=== PATIENT | female | born 1940 | race Caucasian/White ===

== ENCOUNTER 2020-02-11 10:01 | Outpatient (CLI) | payer MEDICARE, BC, OTHER, SELFPAY ==
--- NOTE | ~2020-02-11 | MM_ITS ---
EXAMINATION: MM screening kamryn BI w guillermo HISTORY: Screening mammogram TECHNIQUE: Craniocaudal and mediolateral oblique 3-D tomosynthesis images were obtained and synthetic 2-D images were generated. CAD analysis was submitted and interpreted. COMPARISON: 02/05/2019, 01/28/2018, 01/16/2017 bilateral digital screening mammogram examinations BREAST PARENCHYMAL COMPOSITION: The breasts are almost entirely fatty. FINDINGS: There is no evidence of suspicious mass, calcification, or architectural distortion to sugg est malignancy in either breast. There has been no suspicious interval change. IMPRESSION: 1. No mammographic evidence of malignancy. 2. Recommend routine screening mammography in one year. BI-RADS Category 1: Negative Reviewed, dictated and finalized at location A.
== END 2020-02-11 10:02 | disposition home or self-care (01) ==
LOC: ANHIMG 10:08
PROVIDERS: PCP Family Medicine; Visit Provider Family Medicine
DX: Z12.31 Encounter for screening mammogram for malignant neoplasm of breast (principal)
CPT/HCPCS: 77063; 77067

== ENCOUNTER 2020-04-22 18:24 | Emergency (ER) | payer MEDICARE, BC, OTHER, SELFPAY ==
--- NOTE | ~2020-04-22 | XR_ITS ---
EXAMINATION: XR knee RT 3V DATE: 04/22/2020 19:52 INDICATION: Right knee pain. Fall. TECHNIQUE: 3 views of right knee were obtained. COMPARISON: None. FINDINGS: There is a total right knee arthroplasty with patellar resurfacing in near-anatomic alignme nt. No fracture. No periprosthetic lucency to suggest loosening or infection. There is a small knee j oint effusion. IMPRESSION: 1. Total right knee arthroplasty in near-anatomic alignment. 2. Small right knee joint effusion. Reviewed, dictated and finalized at location A. ESSIONAL SYSTEM ADMINISTRATOR
--- NOTE | ~2020-04-22 | CT_ITS ---
EXAMINATION: CT brain wo con DATE: 04/22/2020 18:53 INDICATION: Head injury. TECHNIQUE: Computed tomography (CT) of the head was performed without intravenous contrast. The mA wa s adjusted according to patient size. Iterative reconstruction technique was employed. The dose-lengt h product was 605.33 mGy-cm. COMPARISON: None FINDINGS: There is no intracranial hemorrhage, acute infarction, or abnormal intracranial mass lesion . The ventricles are normal in size. There are likely changes of ocular lens replacement surgeries. T here is mild mucosal thickening in the paranasal sinuses. There is a right otomastoid effusion. There is a left mastoid effusion. IMPRESSION: 1. Normal brain. Reviewed, dictated and finalized at location A. LE CEILING INSTALLER IMPRESSION: 1. Normal brain.
[2020-04-22 18:28] VITALS: BP 180/98; PULSE 87; RESP 18; TEMP 36.9; O2SAT 97
--- NOTE | 2020-04-22 18:34 | ED.GENADULT ---
HPI - General Adult General Chief complaint: Wound/Laceration Stated complaint: fall Time Seen by Provider: 04/22/20 18:33 Source: patient and family Mode of arrival: ambulatory Limitations: no limitations History of Present Illness HPI narrative: Patient is an 79-year-old female who presents with lip laceration patient was walking when she tripped fell forward striking the face. Patient denies loss of consciousness syncope weakness neck pain patient denies any anticoagulant use patient did chip her right upper incisor patient notes mild discomfort of the nose and the left where she has a laceration of the right upper lip Related Data Home Medications Medication Instructions Recorded Confirmed cholecalciferol (vitamin D3) 25 25 mcg PO DAILY 07/14/19 10/13/19 mcg (1,000 unit) capsule celecoxib 200 mg capsule 200 mg PO DAILY cap 10/13/19 10/13/19 pantoprazole 40 mg granules 40 mg PO DAILY 04/05/20 delayed-release for susp in packet vitamin B complex 1 tablet PO DAILY 04/05/20 Allergies Allergy/AdvReac Type Severity Reaction Status Date / Time cefpodoxime Allergy Unknown Unknown Verified 04/05/20 10:27 Cephalosporins Allergy Unknown Hives Verified 04/05/20 10:27 erythromycin base Allergy Unknown Unknown Verified 04/05/20 10:27 Penicillins Allergy Unknown Hives Verified 04/05/20 10:27 CEFPODOXIME PROXETIL Allergy Severe C DIFF Uncoded 04/05/20 10:27 Review of Systems Review of Systems: All systems reviewed & are unremarkable except as noted in HPI and below PMFSH Past Medical History Medical History Chronic interstitial lung disease Dyslipidemia History of Clostridium difficile infection Hx of gastric ulcer Hx of small bowel obstruction ILD (interstitial lung disease) Recurrent herpes labialis Unspecified osteoarthritis, unspecified site Vitamin B12 deficiency Surgical History Surgical History History of cholecystectomy 1969 History of right knee joint replacement 07/2019 History of sinus surgery 1995 Family History Family History Father Family history of Parkinson's disease, Onset Age: 85 Sibling Family history of type 1 diabetes mellitus, Onset Age: 36 Other Diabetes mellitus Family history of arthritis Social History Social History Smoking status: Never smoker Second hand tobacco smoke exposure: No Alcohol intake: current Substance use: never Substance use type: does not use Exam Narrative: Exam Narrative: GENERAL: Well-appearing, well-nourished, and in no acute distress. HEAD: Normocephalic, patient with laceration of the right upper lateral lip. Abrasion over the nasal bridge EYES: PERRLA and EOMI. ENT: Nares clear, no rhinorrhea or epistaxis. Mucous membranes moist. NECK: Supple. No adenopathy or masses. CHEST: Clear to auscultation. No respiratory distress. No wheezes rales or rhonchi HEART: Regular rate and rhythm. No murmur heard. EXTREMITIES: Normal range of motion. No edema. No C-spine tenderness to palpation. Tenderness of the anterior right knee with slight bruising and abrasion SKIN: Warm, dry, no rash. NEURO: No focal deficits. Alert and oriented x3. Cranial nerves II through XII grossly intact PSYCH: Normal mood and affect. Course Course Emergency Course: Patient in the room in no distress no high risk changes i in the imaging felt appropriate for outpatient reevaluation given reasons to return patient will follow with her orthopedic surgeon as well as her primary care doctor Vital Signs Vital signs: Vital Signs Temperature 98.4 F 04/22/20 18:28 Pulse Rate 87 04/22/20 18:28 Respiratory Rate 18 04/22/20 18:28 Blood Pressure 180/98 H 04/22/20 18:28 Pulse Oximetry 97 04/22/20 18:28 T
[2020-04-22] MEDS: HYDROcodone/acetaminophen (*CRX) 5-325 MG TABLET 1 TAB PO (18:46)
[2020-04-22 20:44] VITALS: BP 139/76; PULSE 78; RESP 18; O2SAT 99
== END 2020-04-22 20:46 | disposition home or self-care (01) ==
PROVIDERS: Emergency Provider Emergency Medicine; PCP Family Medicine
DX: S01.511A Laceration without foreign body of lip, initial encounter (principal); S80.01XA Contusion of right knee, initial encounter; S09.90XA Unspecified injury of head, initial encounter; E78.5 Hyperlipidemia, unspecified; J84.9 Interstitial pulmonary disease, unspecified; M19.90 Unspecified osteoarthritis, unspecified site; E53.8 Deficiency of other specified B group vitamins; Z96.651 Presence of right artificial knee joint; W01.0XXA Fall on same level from slipping, tripping and stumbling without subsequent striking against object, initial encounter
CPT/HCPCS: 12011; 70450; 73562; 99284; A9270

== ENCOUNTER 2020-07-20 18:24 | Inpatient (IN) | payer MEDICARE, BC, OTHER, SELFPAY ==
[2020-07-20] VITALS (26 sets, daily range): BP systolic 116–169; BP diastolic 65–157; PULSE 77–105; RESP 13–28; TEMP 36.8; O2SAT 81–99
--- NOTE | ~2020-07-20 | CT_ITS ---
EXAMINATION: CT abdomen pelvis w con DATE: 07/20/2020 20:27 INDICATION: Low abdominal pain. TECHNIQUE: Computed tomography (CT) of the abdomen and pelvis was performed with 100 mL Omnipaque 350 intravenous contrast. Automated exposure control and iterative reconstruction technique were employe d. The dose-length product was 823.64 mGy-cm. COMPARISON: CT abdomen and pelvis 06/25/2018 FINDINGS: The visualized portions of the lung bases demonstrate a heterogeneous distribution of perip heral reticular opacities with architectural distortion. There is peripheral honeycombing in the lowe r lobes and lingula. There is mild bronchiectasis in the lower lobes. No pleural effusion. The heart size is normal. There are coronary artery calcifications. No pericardial effusion. There is mild intr ahepatic biliary duct dilatation, likely secondary to cholecystectomy. The spleen, pancreas, and adre nal glands are normal. Right kidney is normal. There is cortical thinning of left kidney. 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 There is diverticulosis of the colon without evidence of diverticulitis. There are multiple dilated loops of small bowel with transition point in the lower abdomen where there is mild wall thickening, consistent with inflammation. There are no pat hologically enlarged lymph nodes. There is no free intraperitoneal fluid. There is severe lumbar and thoracic spondylosis. There are chronic bilateral L5 pars defects. IMPRESSION: 1. Small bowel obstruction with transition point in the lower abdomen. 2. Chronic interstitial lung disease in a pattern of usual interstitial pneumonia (UIP). Reviewed, dictated and finalized at location A. T CLERK IMPRESSION: 1. Small bowel obstruction with transition point in the lower abdomen. 2. Chronic interstitial lung disease in a pattern of usual interstitial pneumon ia (UIP).
--- NOTE | ~2020-07-20 | XR_ITS ---
EXAMINATION: XR abdomen obstructive series DATE: 07/21/2020 05:47 INDICATION: Small bowel obstruction. TECHNIQUE: Frontal supine and upright views of the abdomen were obtained. COMPARISON: 07/20/2020 FINDINGS: Nasogastric tube tip in the body of the stomach. Small to moderate amount of gas scattered throughout colon and multiple loops of nondilated small bowel. No free intraperitoneal gas. Streaky atelectas is/scarring at the left lower lung zone. 6 mm crescentic calcification in the right upper quadrant co rresponding to a small right renal artery aneurysm. IMPRESSION: 1. No free intraperitoneal gas or dilated gas-filled loops of bowel to suggest obstruction. Reviewed, dictated and finalized at location A. NESS PROCESS MANAGER
--- NOTE | ~2020-07-20 | XR_ITS ---
EXAMINATION: XR abdomen NG/feed tube insert DATE: 07/20/2020 21:24 INDICATION: Nasogastric tube placement. TECHNIQUE: An upright view of the abdomen was obtained. COMPARISON: CT abdomen and pelvis 07/20/2020 FINDINGS: There are multiple dilated loops of small bowel. The colon is decompressed. The nasogastric tube tip is in the stomach. IMPRESSION: 1. Nasogastric tube tip in the stomach. 2. Small bowel obstruction. Reviewed, dictated and finalized at location A. NG FELLER BLINDSTITCH
--- NOTE | 2020-07-20 18:46 | ED.ABDPAIN ---
HPI - Abdominal Pain General Chief Complaint: Abdominal Pain Stated Complaint: abd pain x 24 hours Time Seen by Provider: 07/20/20 18:33 Source: patient Mode of arrival: ambulatory Limitations: no limitations History of Present Illness HPI narrative: This is an 79 year old female with history of bowel obstruction who presents for evaluation of mid abdominal pain. Her pain started last night and she reports it has been constant. She describes her pain as pressure, and it feels similar to when she had a bowel obstruction 2 years ago. She started having nausea and bilious vomiting today. Her last bowel movement was yesterday prior to the start of her pain. She denies fever, chills, cough, diarrhea, chest pain or sob. PAin is nonradiating and she rates her pain as 6/10. Related Data Home Medications Medication Instructions Recorded Confirmed cholecalciferol (vitamin D3) 25 25 mcg PO DAILY 07/14/19 07/18/20 mcg (1,000 unit) capsule pantoprazole 40 mg granules 40 mg PO DAILY 04/05/20 07/18/20 delayed-release for susp in packet vitamin B complex 1 tablet PO DAILY 04/05/20 07/18/20 celecoxib 200 mg capsule 200 mg PO BID cap 04/27/20 07/18/20 Allergies Allergy/AdvReac Type Severity Reaction Status Date / Time cefpodoxime Allergy Unknown Unknown Verified 07/18/20 14:48 Cephalosporins Allergy Unknown Hives Verified 07/18/20 14:48 erythromycin base Allergy Unknown Unknown Verified 07/18/20 14:48 Penicillins Allergy Unknown Hives Verified 07/18/20 14:48 CEFPODOXIME PROXETIL Allergy Severe C DIFF Uncoded 07/18/20 14:48 Review of Systems Review of Systems: All systems reviewed & are unremarkable except as noted in HPI and below PMFSH Past Medical History Medical History Chronic interstitial lung disease Dyslipidemia History of Clostridium difficile infection Hx of gastric ulcer Hx of small bowel obstruction ILD (interstitial lung disease) Recurrent herpes labialis Unspecified osteoarthritis, unspecified site Vitamin B12 deficiency Surgical History Surgical History History of cholecystectomy 1969 History of right knee joint replacement 07/2019 History of sinus surgery 1995 Family History Family History Father Family history of Parkinson's disease, Onset Age: 85 Sibling Family history of type 1 diabetes mellitus, Onset Age: 36 Other Diabetes mellitus Family history of arthritis Social History Social History Smoking status: Never smoker Second hand tobacco smoke exposure: No Alcohol intake: current Substance use: never Substance use type: does not use Exam Const: General: no acute distress and alert Orientation/consciousness: patient oriented x3 Resp: Effort & Inspection: normal respiratory effort and no retractions Auscultation: clear to auscultation bilaterally Cardio: Rate: regular rate Rhythm: regular rhythm Heart sounds: no murmurs GI: GI Palp: Yes Soft to palpation, Yes Tenderness to palpation present (GI) (Bilateral lower quadrant), No Guarding due to palpation present (GI) and No Rigid due to palpation Auscultation: normal bowel sounds Skin: General skin exam: normal color Rashes: no rashes Neuro: General: patient oriented x3, moves all extremities and CN's II-XI intact bilaterally Psych: Mental Status: mental status grossly normal Affect: normal affect Course Consultations Consultation #1: I Discussed labs and patient found to have SBO on CT. He agrees with NGT, IV hydration and repeat xray in AM. he will admit to his service. Date: 07/20/20 Time: 21:07 Vital Signs Vital signs: Vital Signs Temperature 98.3 F 07/20/20 18:31 Pulse Rate 99 07/20/20 18:31 Respiratory Rate 18 07/20/20 18:31 Blood Pre
[2020-07-20] MEDS: ONDANSETRON INJ 4 MG/2 ML VIAL IV PUSH (18:54)
[2020-07-20] MEDS: MORPHINE SULFATE (*CRX) 4 MG/ML INJ IV PUSH (18:54)
[2020-07-20] MEDS: LACTATED RINGERS 1,000 ML 999 ML IV CONT ×2 (18:54→20:16)
[2020-07-20 19:16] LABS: Basophils Absolute Auto 0.1 K/mm3 (0.0-0.1); Basophils Percent Auto 0.5 % (0.2-1.2); Eosinophils Absolute Auto 0.7 K/mm3 (0-0.3); Eosinophils Percent Auto 4.3 % (0-4.4); Hematocrit 43.6 % (37.0-47.0); Hemoglobin 14.3 g/dL (12.0-15.0); Immature Granulocyte Absolute 0.11 K/mm3 (0.00-0.031); Immature Granulocyte Percent A 0.6 % (0-0.5); Lymphocytes Absolute Auto 1.32 K/mm3 (0.9-3.2); Lymphocytes Percent Auto 7.8 % (18.3-44.2); Mean Corpuscular HGB Conc 32.8 g/dl (32-36); Mean Corpuscular Hemoglobin 31.1 pg (26-34); Mean Corpuscular Volume 94.8 fl (80-100); Mean Platelet Volume 8.4 fl (7.4-10.4); Monocytes Absolute Auto 1.1 K/mm3 (0.1-0.6); Monocytes Percent Auto 6.7 % (2.6-8.5); Neutrophils Absolute Auto 13.6 K/mm3 (1.3-6.7); Neutrophils Percent Auto 80.1 % (45.5-73.1); Platelet Count Result 351 k/mm3 (150-375); Red Cell Distribution Width 12.5 % (11.5-14.5)
[2020-07-20 19:27] LABS: Lactic Acid Reflex 2.5 mmol/L (0.7-2.1)
[2020-07-20 19:28] LABS: Alanine Aminotransferase 12 U/L (4-35); Albumin Level 4.2 g/dL (3.5-5.1); Alkaline Phosphatase 72 U/L (38-126); Anion Gap 8 mmol/L (8-16); Aspartate Amino Transferase 22 U/L (14-36); Bilirubin,Total 0.8 mg/dL (0.2-1.3); Blood Urea Nitrogen 14 mg/dL (7-17); Calcium 9.3 mg/dL (8.4-10.2); Carbon Dioxide 25 mmol/L (22-30); Chloride 101 mmol/L (98-107); Estimated CRCL calculation 41 ml/min; Estimated Glomerular Filt Rate 60; Glucose 148 mg/dL (65-105); Lipase 83 U/L (23-300); Potassium 4.2 mmol/L (3.4-5.0); Sodium 134 mmol/L (137-145)
[2020-07-20 20:34] LABS: Add Urine Microscopic? YES; Appearance Urine Clear (Clear); Bilirubin Urine Negative (Negative); Blood Urine Negative (Negative); Color Urine Yellow (Yellow); Glucose Urine UA Negative (Negative); Ketones Urine Negative (Negative); Leukocyte Esterase Ur Trace LEU/UL (Negative); Mucus Urine Rare /lpf; Nitrate Urine Negative (Negative); Protein Urine Negative (Negative); RBC Urine 0-2 /hpf (0-2); Urobilinogen Urine Negative mg/dL (<2.0); WBC Urine 0-3 /hpf
[2020-07-20 22:13] LABS: Reflex Lactic Acid Yes or No Add Lactic
[2020-07-20 22:46] LABS: Lactic Acid 1.3 mmol/L (0.7-2.1)
--- NOTE | 2020-07-20 22:51 | PC.NURSE ---
Pt. placed on 2 L NC. due to O2 saturation dropping to 84%
--- NOTE | 2020-07-20 23:31 | PC.NURSE ---
Pt placed on 2 L NC O2 due to oxygen sat 88%.
[2020-07-21 00:03] VITALS: BP 140/72; PULSE 79; RESP 26; O2SAT 98
--- NOTE | 2020-07-21 00:06 | ADMGEN ---
This patient, Sylvia Sullivan, was admitted to Medical Room 343-01. Patient/family oriented to hospital policies and general routines including ID bracelet, bed and alarms, visiting hours, pain management, procedures, bathroom and other care routines, personal items, smoking policy, room service/diet, and visiting hours. Information on how to activate the Rapid Response Team has been discussed. Patient/Family are encouraged to report perceived risks to care and to ask questions if they do not understand what they are told or what they should do.
[2020-07-21 00:10] VITALS: BMI 29.8
[2020-07-21 00:11] VITALS: BP 146/65; PULSE 86; RESP 16; TEMP 36.1; O2SAT 96
[2020-07-21 05:05] VITALS: BP 142/63; PULSE 83; RESP 20; TEMP 36.4; O2SAT 92
[2020-07-21 05:41] LABS: Basophils Absolute Auto 0.1 K/mm3 (0.0-0.1); Basophils Percent Auto 0.6 % (0.2-1.2); Eosinophils Absolute Auto 0.4 K/mm3 (0-0.3); Eosinophils Percent Auto 4.2 % (0-4.4); Hematocrit 37.2 % (37.0-47.0); Hemoglobin 11.9 g/dL (12.0-15.0); Immature Granulocyte Absolute 0.05 K/mm3 (0.00-0.031); Immature Granulocyte Percent A 0.5 % (0-0.5); Lymphocytes Percent Auto 18.5 % (18.3-44.2); Mean Corpuscular Hemoglobin 30.4 pg (26-34); Mean Corpuscular Volume 95.1 fl (80-100); Mean Platelet Volume 8.4 fl (7.4-10.4); Monocytes Absolute Auto 1.1 K/mm3 (0.1-0.6); Monocytes Percent Auto 11.6 % (2.6-8.5); Neutrophils Absolute Auto 6.3 K/mm3 (1.3-6.7); Neutrophils Percent Auto 64.6 % (45.5-73.1); Platelet Count Result 312 k/mm3 (150-375); Red Blood Count 3.91 M/mm3 (4.2-5.4); Red Cell Distribution Width 12.6 % (11.5-14.5); White Blood Count 9.8 K/mm3 (4.5-10.0)
[2020-07-21 05:56] LABS: Alanine Aminotransferase 39 U/L (4-35); Albumin Level 3.2 g/dL (3.5-5.1); Alkaline Phosphatase 68 U/L (38-126); Anion Gap 3 mmol/L (8-16); Aspartate Amino Transferase 64 U/L (14-36); Bilirubin,Total 0.6 mg/dL (0.2-1.3); Blood Urea Nitrogen 12 mg/dL (7-17); Calcium 8.1 mg/dL (8.4-10.2); Carbon Dioxide 31 mmol/L (22-30); Chloride 100 mmol/L (98-107); Estimated CRCL calculation 43 ml/min; Estimated Glomerular Filt Rate 53; Glucose 113 mg/dL (65-105); Potassium 4.4 mmol/L (3.4-5.0); Sodium 134 mmol/L (137-145)
--- NOTE | 2020-07-21 09:04 | PM.IMHP ---
H&P: HPI History of Present Illness Date/Time: 07/21/20 09:04 Chief Complaint: abd pain Narrative: Sylvia Sullivan is a 79 year old female presenting to the ED c/o 2 d h/o worsening crampy abd pain, intractable N/V. Pt reports she has really been unable to eat or drink. Pt reports no bowel fxn since Friday. Pt reports similar episode 2 yrs ago resolved c conservative tx. Pt had previous open cholecystectomy and surgery for PUD. This am, pt reports she feels much improved and has began to pass flatus. Review of Systems Constitutional: Constitutional: Reports anorexia, Denies chills, Reports fatigue, Denies headache(s), Reports lethargy, Reports poor appetite, Reports weakness, Denies weight gain and Denies weight loss Eyes: Eyes: Reports no additional eye complaints ENT: Reports system reviewed and no additional complaints, except as documented Cardiovascular: Cardiovascular: Reports no additional cardiovascular complaints Respiratory: Respiratory: Reports no additional respiratory complaints Gastrointestinal: Gastrointestinal: Reports as per HPI Genitourinary: Genitourinary: Reports no additional female genitourinary complaints Musculoskeletal: Musculoskeletal: Reports no additional musculoskeletal complaints Integumentary/Breasts: Skin/Breast: Reports system reviewed and no additional complaints, except as docu Neurologic: Reports system reviewed and no additional complaints, except as documented Psychiatric: Psychiatric: Reports no additional psychiatric complaints Endocrine: Endocrine: Reports no additional endocrine complaints Hematologic/Lymphatic: Hematologic/Lymphatic: Reports no additional hematologic/lymphatic complaints Allergic/Immunologic: Allergic/Immunologic: Reports no additional allergic/immunologic complaints PMFSH Past Medical History Medical History Chronic interstitial lung disease Dyslipidemia History of Clostridium difficile infection Hx of gastric ulcer Hx of small bowel obstruction ILD (interstitial lung disease) Recurrent herpes labialis Unspecified osteoarthritis, unspecified site Vitamin B12 deficiency Surgical History Surgical History History of cholecystectomy 1970 History of right knee joint replacement 07/2019 History of sinus surgery 1995 Family History Family History Father Family history of Parkinson's disease, Onset Age: 85 Sibling Family history of type 1 diabetes mellitus, Onset Age: 36 Other Diabetes mellitus Family history of arthritis Social History Social History Smoking status: Never smoker Second hand tobacco smoke exposure: No Alcohol intake: current Drinks per week: 3 Substance use: never Substance use type: does not use Gender identity (if verbalized by the patient): Female Spiritual care concerns: No Meds Home Medications and Allergies Home Medications Medication Instructions Recorded Confirmed Type cholecalciferol (vitamin D3) 25 25 mcg PO DAILY 07/14/19 07/21/20 History mcg (1,000 unit) capsule pantoprazole 40 mg granules 40 mg PO DAILY 04/05/20 07/21/20 History delayed-release for susp in packet vitamin B complex 1 tablet PO DAILY 04/05/20 07/21/20 History acetaminophen [Tylenol Arthritis 650 mg PO Q8H PRN #7 tablet 04/22/20 07/21/20 Rx Pain] celecoxib 200 mg capsule 200 mg PO BID cap 04/27/20 07/21/20 History rosuvastatin 10 mg PO DAILY 07/21/20 07/21/20 History Allergies Allergy/AdvReac Type Severity Reaction Status Date / Time cefpodoxime Allergy Unknown C diff Verified 07/21/20 01:39 Cephalosporins Allergy Unknown Hives Verified 07/21/20 01:37 erythromycin base Allergy Unknown Unknown Verified 07/21/20 01:37 Penicillins Allergy Unknown Hives Verified 07/21/20
[2020-07-21 14:00] VITALS: BP 135/62; PULSE 80; RESP 16; TEMP 36.1; O2SAT 97
--- NOTE | 2020-07-23 08:36 | PM.DS ---
DS: Admitting Diagnosis Admitting Diagnosis Admitting Diagnosis: SBO DS: Discharge Diagnosis Discharge Diagnosis (1) Small bowel obstruction: Code(s): K56.609 - Unspecified intestinal obstruction, unspecified as to partial versus complete obstruction Status: Acute Assessment and Plan: resolved c conservative mgmt, cont to encourage soft diet at discharge, f/u 2 wks DS: Summary Hospital Course Reason for hospitalization: SBO Hospital Course: Pt is a 79 y/o F presenting to ED c/o crampy abd pain, N/V. Workup, including imaging, was significant for SBO. Pt admitted to surgical service for observation. Pt treated conservatively c NG decompression, bowel rest, IV hydration. Pt responded well to treatment beginning to pass flatus the following am. NG was clamped and subsequently removed. Pt was able to then have a normal bowel movement. Pt ankit soft diet at discharge. Status at Discharge Functional status at discharge: independent ambulation Overall status at discharge: patient is progressing back to baseline Time Spent with Patient Time attestation: Total time spent providing and/or coordinating discharge services: Time spent: Less than 30 minutes Exam Const: General: cooperative, comfortable and no acute distress Chest: Chest palpation & inspection: normal inspection of the chest Resp: Effort & Inspection: normal respiratory effort Cardio: Rate: regular rate Rhythm: regular rhythm GI: Inspection: normal to inspection, no edema, non-distended and incision GI Palp: Yes Soft to palpation and No Tenderness to palpation present (GI) Discharge Plan Discharge Discharging Clinician: Sandy Marcus Patient Disposition: Home, Self-Care Activity: as tolerated Diet: bland and other - see discharge instructions Patient Instructions: Antibiotic Form Stand Alone Forms: General Discharge Information Follow-up/Referrals: Sandy Marcus MD [Physician] - 1 Week Discharge Medications: Continued celecoxib [Celebrex] 200 mg capsule 200 mg PO BID RF: 0 cholecalciferol (vitamin D3) 25 mcg (1,000 unit) capsule 25 mcg PO DAILY RF: 0 pantoprazole [Protonix] [address] for susp in packet 40 mg PO DAILY RF: 0 vitamin B complex [B Complex-Vitamin B12] Tablet 1 tablet PO DAILY RF: 0 acetaminophen [Tylenol Arthritis Pain] 650 mg tablet extended release 650 mg PO Q8H PRN (Reason: fever or pain) Qty: 7 RF: 0 rosuvastatin 10 mg tablet 10 mg PO DAILY RF: 0 Date of admission: 07/21/20 07:45 Primary Care Provider: Jason Gastelum Admitting Provider: Sandy Marcus Attending physician on admission: Sandy Marcus Condition: Stable
== END 2020-07-21 18:17 | disposition home or self-care (01) | DRG 389 ==
LOC: ANHED 18:46 → ANH3MED 23:29
PROVIDERS: Admitting Provider Surgery; Emergency Provider General Practice; PCP Family Medicine; Visit Provider Surgery
DX: K56.609 Unspecified intestinal obstruction, unspecified as to partial versus complete obstruction (principal); J84.9 Interstitial pulmonary disease, unspecified; E78.5 Hyperlipidemia, unspecified; E53.8 Deficiency of other specified B group vitamins; M19.90 Unspecified osteoarthritis, unspecified site; Z96.651 Presence of right artificial knee joint; Z90.49 Acquired absence of other specified parts of digestive tract
CPT/HCPCS: 36415; 74019; 74177; 80053; 81001; 83605; 83690; 85025; 96361; 96374; 96375; 99285; G0378; J0131; J2270; J2405; J7120; Q9967

== ENCOUNTER 2020-08-21 09:35 | Outpatient (CLI) | payer MEDICARE, BC, OTHER, SELFPAY ==
--- NOTE | 2020-08-21 12:58 | WPDSIXMINUTE ---
Six Minute Walk This is a 6 minutes walk test. The test was performed and interpreted in accordance with the 2014 ERS/ATS task force guidelines. Findings: The patient's resting room air oxygen saturation measured by pulse oximetry was 95% and her heart rate was 100 bpm. Patient ambulated for 305 meters and oxygen saturation remained 88 to 97%. Heart rate at the end of the study was 116 bpm. There are no prior studies for comparison.
--- NOTE | 2020-08-21 13:00 | P.PCNPFT_ITS ---
PFT Interpretation This is a pulmonary function test with pre and post-bronchodilator spirometry, plethysmography and diffusing capacity. The test was performed and results interpreted in accordance with the 2019 and 2005 ATS/ERS Task Force guidelines respectively using the Global Lung Function Initiative-2012 reference equations. Patient demonstrated good effort and c ooperation. Reproducibility criteria were met. The quality of the pre bronchodilator spirometry maneuver was Grade A and post bronchodilator spirometry maneuver was Grade A. Findings: Spirometry: The contour of the inspiratory and expiratory flow tracing are normal. The pre bronchodilator FVC is 1.81 L, 69% predicted. The pre bronchodilator FEV1 is 1.45 L, 73% predicted. The FEV1: FVC ratio was 80%. The post bronchodilator FVC is 1.77 L, representing a 2% decrease. The post bronchodilator FEV1 is 1.46 L, representing 1% increase. Plethysmography: The total lung capacity is 3.05 L, 59% predicted. The functional residual capacity is 1.47 L, 49% predicted. The residual volume is 1.24 L, 51% predicted. Diffusing capacity: The absolute diffusion capacity is 10.7, 54% predicted. The diffusing capacity corrected for alveolar volume is 3.70, 91% predicted. In comparison to the most recent pulmonary function test in our laboratory on 05/05/2017 the post bronchodilator dilator FVC has remained unchanged from 2.03 L to 1.77 L. The post bronchodilator FEV1 has decreased from 1.84 L to 1.46 L. The total lung capacity has decreased from 4.38 L to 3.05 L. The functional res idual capacity has decreased from 2.77 L to 1.47 L. The residual volume has decreased from 2.12 L to 1.24 L. The absolute diffusion capacity is decreased from 14.0 to 10.7. The diffusing capacity corrected for alveolar volume is unchanged from 4.01 to 3.70. Impression: There is a mild restrictive ventilatory abnormality. The spirometry is normal without evidence of an obstructive abnormality. There is no significant improvement after inhaling a single dose of albuterol. The absolute diffusing capacity is moderately decreased and normalizes when corrected for alveolar volume. When compared to the prior pulmonary function test on 05/05/2017 there has been a greater than anticipated time dependent decrease in FEV1, total lung capacity, functional residual capacity, residual volume and a bsolute diffusing capacity. There has been no significant change in the FVC or diffusing capacity corrected for alveolar volume. Clinical correlation is recommended.
== END 2020-08-21 09:36 | disposition home or self-care (01) ==
PROVIDERS: PCP Family Medicine; Visit Provider Internal Medicine Critical Care Medicine
DX: J84.9 Interstitial pulmonary disease, unspecified (principal); R94.2 Abnormal results of pulmonary function studies
CPT/HCPCS: 94060; 94618; 94726; 94729

== ENCOUNTER 2020-11-23 08:14 | Outpatient (CLI) | payer MEDICARE, BC, OTHER, SELFPAY ==
--- NOTE | ~2020-11-23 | CT_ITS ---
EXAMINATION: CT chest high resolution wo fl DATE: 11/23/2020 08:34 INDICATION: Interstitial pulmonary disease TECHNIQUE: Computed tomography (CT) of the chest was performed without intravenous contrast. The dose -length product (DLP) was 344.68 mGy-cm. Automated exposure control and iterative reconstruction tech nique were employed. COMPARISON: 07/07/2017 FINDINGS: There are subpleural groundglass and reticular opacities with a mid and lower lung zone pre dominance which demonstrate interval worsening since the comparison examination. Honeycombing is note d in the lower lobes, also with slight worsening. There is no pleural effusion or pneumothorax. No pa thologically enlarged thoracic lymph nodes are identified. The heart size is normal. Calcified lockhart ry artery atherosclerosis is noted. There is moderate thoracic spondylosis and severe upper lumbar sp ondylosis IMPRESSION: 1. Chronic interstitial lung disease in a pattern of usual interstitial pneumonia (UIP) with slight i nterval worsening. Reviewed, dictated and finalized at location B. IMPRESSION: 1. Chronic interstitial lung disease in a pattern of usual interstitial pneumon ia (UIP) with slight interval worsening.
== END 2020-11-23 08:15 | disposition home or self-care (01) ==
LOC: ANHIMG 08:16
PROVIDERS: PCP Family Medicine; Visit Provider Internal Medicine Critical Care Medicine
DX: J84.9 Interstitial pulmonary disease, unspecified (principal)
CPT/HCPCS: 71250

== ENCOUNTER 2021-05-07 14:47 | Outpatient (CLI) | payer MEDICARE, BC, OTHER, SELFPAY ==
--- NOTE | ~2021-05-07 | DEXA_ITS ---
Bone Density Report Name: LIBORIO NUNEZ Age: 80 Sex: Female Ethnicity: White Date of : 1940 Indication: postmenopausal; height loss; Referring Provider: Jason Gastelum Study: Bone densitometry was performed. Exam Date: May 07, 2021 Accession number: [id number] Bone Density: Region BMD T-score Z-score Classification AP Spine (L3, L4) 1.131 0.3 3.2 Normal Femoral Neck (Left) 0.816 -0.3 2.1 Normal Total Hip (Left) 0.944 0.0 2.2 Normal Total Hip Bilateral Avg 0.889 -0.4 1.7 Normal Femoral Neck (Right) 0.724 -1.1 1.2 Osteopenia Total Hip (Right) 0.833 -0.9 1.2 Normal World Health Organization criteria for BMD impression classify patients as: Normal (T-score at or above -1.0), Osteopenia (T-score between -1.0 and -2.5), or Osteoporosis (T-score at or below -2.5). 10-year Fracture Risk(1): Major Osteoporotic Fracture 12% Hip Fracture 2.5% Reported Risk Factors: [place] (), Neck BMD=0.724, BMI=30.6 (1) FRAX(R) Version 3.08. Fracture probability calculated for an untreated patient. Fracture probability may be lower if the patient has received treatment. Previous Exams: Region Exam Age BMD T-score BMD Change BMD Change Date g/cm2 vs Baseline vs Previous AP Spine(L3, L4) 05/07/2021 80 1.131 0.3 0.021(1.9%)# 0.015(1.3%) 09/11/2018 77 1.117 0.1 0.007(0.6%)# 0.097(9.5%)# 12/23/2013 73 1.020 -0.7 -0.090(-8.1%)# -0.195(-16.0%) 03/20/2011 70 1.214 1.0 0.104(9.4%)* 0.045(3.9%)* 10/20/2008 67 1.169 0.6 0.059(5.3%)* 0.059(5.3%)* 09/16/2003 62 1.110 0.1 Total Hip(Left) 05/07/2021 80 0.944 0.0 -0.105(-10.0%) -0.011(-1.2%) 09/11/2018 77 0.955 0.1 -0.094(-9.0%)# -0.062(-6.1%)# 12/23/2013 73 1.017 0.6 -0.032(-3.0%)# 0.011(1.1%)# 03/20/2011 70 1.006 0.5 -0.043(-4.1%)* 0.021(2.2%) 10/20/2008 67 0.985 0.3 -0.064(-6.1%)* -0.064(-6.1%)* 09/16/2003 62 1.049 0.9 Total Hip(Right) 05/07/2021 80 0.833 -0.9 -0.189(-18.5%) -0.044(-5.0%)* 09/11/2018 77 0.876 -0.5 -0.145(-14.2%) -0.043(-4.7%)# 12/23/2013 73 0.920 -0.2 -0.102(-10.0%) 0.025(2.8%)# 03/20/2011 70 0.894 -0.4 -0.127(-12.5%) -0.032(-3.5%)* 10/20/2008 67 0.927 -0.1 -0.095(-9.3%)* -0.095(-9.3%)* 09/16/2003 62 1.022 0.7 *Denotes significance at 95% confidence level, LSC for AP Spine = 0.022 g/cm2, LSC for Total Hip = 0.027 g/cm2 Clinical Information Provided by Patient: Has used the following m
--- NOTE | ~2021-05-07 | MM_ITS ---
EXAMINATION: MM screening [facility] BI w guillermo HISTORY: Screening mammogram TECHNIQUE: Craniocaudal and mediolateral oblique 3-D tomosynthesis images were obtained and synthetic 2-D images were generated. CAD analysis was submitted and interpreted. COMPARISON: 02/11/2020, 02/05/2019 BREAST PARENCHYMAL COMPOSITION: There are scattered areas of fibroglandular density. FINDINGS: There is no evidence of suspicious mass, calcification, or architectural distortion to sugg est malignancy in either breast. There has been no suspicious interval change. IMPRESSION: 1. No mammographic evidence of malignancy. 2. Recommend routine screening mammography in one year. BI-RADS Category 1: Negative Reviewed, dictated and finalized at location A. ER STAKER
== END 2021-05-07 14:48 | disposition home or self-care (01) ==
LOC: ANHIMG 14:47
PROVIDERS: PCP Family Medicine; Visit Provider Family Medicine
DX: Z12.31 Encounter for screening mammogram for malignant neoplasm of breast (principal); Z78.0 Asymptomatic menopausal state; M85.851 Other specified disorders of bone density and structure, right thigh
CPT/HCPCS: 77063; 77067; 77080

== ENCOUNTER 2021-05-17 09:27 | Emergency (ER) | payer MEDICARE, BC, OTHER, SELFPAY ==
--- NOTE | ~2021-05-17 | XR_ITS ---
XR chest 2V 05/17/2021 11:06 Indication: Nonproductive cough for 3 days Procedure: 2 view chest Comparison: Comparison to multiple prior studies sequentially, with oldest reviewed study dated 09/10. Findings: Elevated right diaphragm. Airspace disease of the left mid and lower lung, compatible with pneumonia. No significant effusion or pneumothorax. No acute osseous abnormality. Impression: 1: Left-sided airspace disease of the mid and lower lung, consistent with pneumonia. Reviewed, dictated and finalized at location A. CUTTING MACHINE OPERATOR Impression: 1: Left-sided airspace disease of the mid and lower lung, consistent with pneum onia.
[2021-05-17 09:43] VITALS: BP 156/81; PULSE 87; RESP 16; TEMP 36.4; O2SAT 98
--- NOTE | 2021-05-17 10:39 | ED.URI ---
HPI - URI/Sore Throat General Chief Complaint: Upper Respiratory Infection Stated Complaint: COOK/CONGESTION Source: patient and RN notes reviewed Mode of arrival: ambulatory History of Present Illness HPI Narrative: This is a 80-year-old female presented to urgent care with complaints of a nonproductive cough, congestion,, shortness of breath and wheezing according to patient she developed the symptoms on Friday she did test herself with rapid Covid on Friday which is negative. She notes at home she took Tylenol with albuterol. Patient does have a history of pulmonary fibrosis is not requesting a chest x-ray to rule out pneumonia. She has not increased the use of her albuterol patient instructed to use albuterol every 4 hours if needed. Influenza and Covid negative Chest x-ray indicates pneumonia Related Data Home Medications Medication Instructions Recorded Confirmed cholecalciferol (vitamin D3) 25 25 mcg PO DAILY 07/14/19 05/10/21 mcg (1,000 unit) capsule vitamin B complex 1 tablet PO DAILY 04/05/20 05/10/21 celecoxib 200 mg capsule 200 mg PO DAILY cap 10/26/20 05/10/21 fluticasone propionate INTRANASAL 05/17/21 Allergies Allergy/AdvReac Type Severity Reaction Status Date / Time cefpodoxime Allergy Unknown C diff Verified 05/10/21 13:58 Cephalosporins Allergy Unknown Hives Verified 05/10/21 13:58 erythromycin base Allergy Unknown Unknown Verified 05/10/21 13:58 Penicillins Allergy Unknown Hives Verified 05/10/21 13:58 Review of Systems Review of Systems: A 14 organ system Review of Systems was performed and pertinent positives included in the HPI, otherwise remaining ROS is negative. [facility] Past Medical History Medical History Chronic interstitial lung disease Dyslipidemia History of Clostridium difficile infection Hx of gastric ulcer Hx of small bowel obstruction ILD (interstitial lung disease) Recurrent herpes labialis Unspecified osteoarthritis, unspecified site Vitamin B12 deficiency Surgical History Surgical History History of cholecystectomy 1969 History of right knee joint replacement 07/2019 History of sinus surgery 1995 Family History Family History Father Family history of Parkinson's disease, Onset Age: 85 Sibling Family history of type 1 diabetes mellitus, Onset Age: 36 Other Diabetes mellitus Family history of arthritis Social History Social History Smoking status: Never smoker Second hand tobacco smoke exposure: No Alcohol intake: current Drinks per week: 3 Alcohol use details: 1 glass of wine consumed occasionally Substance use: never Substance use type: does not use Gender identity (if verbalized by the patient): Female Spiritual care concerns: No Exam Narrative: GENERAL: This is a well-nourished, well-developed patient, in no apparent distress. HEAD: normocephalic, atraumatic. EYES: PERRL. Sclera clear/white. Vision is grossly intact. EARS: External ears normal, auditory canals clear and without drainage, TMs normal without perforation. Hearing grossly intact. NOSE: External nose normal with no obvious nasal discharge, nares without redness, no rhinorrhea. THROAT: Mucous membranes moist, posterior pharynx clear. NECK: Neck supple, non-tender without lymphadenopathy, masses or thyromegaly. CARDIOVASCULAR: Regular rate and rhythm without murmurs, gallops, or rubs. RESPIRATORY: Expiratory wheezing throughout. GASTROINTESTINAL: Abdomen soft, non-tender, nondistended. Bowel sounds are active. No hepato-splenomegaly, or palpable masses. No guarding. SKIN: warm, intact with no suspicious lesions or rash, good texture and turgor. NEURO: awake, alert, and oriented to person, place and time. There were no
== END 2021-05-17 11:36 | disposition home or self-care (01) ==
PROVIDERS: Emergency Provider Nurse Practitioner; PCP Family Medicine
DX: J18.9 Pneumonia, unspecified organism (principal); E78.5 Hyperlipidemia, unspecified; Z20.822 Contact with and (suspected) exposure to COVID-19
CPT/HCPCS: 71046; 87426; 99213; C9803; G0463

== ENCOUNTER 2021-08-31 12:19 | Outpatient (CLI) | payer MEDICARE, BC, OTHER, SELFPAY ==
--- NOTE | 2021-08-31 15:42 | WPDSIXMINUTE ---
Six Minute Walk Procedure Procedure Performed Pulmonary Stress Test (6 min walk) Six Minute Walk This is a 6 minute walk test. The test was performed and interpreted in accordance with the 2014 ERS/ATS task force guidelines. Findings: The patient's resting room air oxygen saturation measured by pulse oximetry was 98% and heart rate was 105 bpm. Patient ambulated for 366 meters and oxygen saturation remained 91 to 95%. Heart rate at the end of the study was 125 bpm. Compared to prior 6 minutes walk test on 08/21/2020 the distance walk has increased from 305 m to 366 meters. The patient did not qualify for supplemental oxygen at rest or with ambulation.
--- NOTE | 2021-08-31 15:45 | P.PCNPFT_ITS ---
PFT Procedure Performed PFT Procedure Performed Spirometry with Pre/Post Bronchodilator Plethysmography (Lung Vol) Diffusing Cap (DLCO) Flow Vol Loop PFT Interpretation This is a pulmonary function test with pre and post-bronchodilator spirometry, plethysmography and diffusing capacity. The test was performed and results interpreted in accordance with the 2019 and 2005 ATS/ERS Task Force guidelines respectively using the Global Lung Function Initiative-2012 reference equations. Patient demonstrated good effort and cooperation. Reproducibility criteria were met. The quality of the pre bronchodilator spirometry maneuver was Grade A and post bronchodilator spirometry maneuver was Grade A. Findings: Spirometry: The contour the inspiratory and expiratory flow tracing are normal. The pre bronchodilator FVC is 1.79 L, 69% predicted. The pre bronchodilator FEV1 is 1.53 L, 78% predicted. The pre bronchodilator FEV1: FVC ratio is 86%. The post bronchodilator FVC is 1.79 L, representing no change. The post bronchodilator FEV1 is 1.52 L, representing 1% decrease. The post bronchodilator FEV1: FVC ratio was 85%. Plethysmography: The total lung capacity is 3.20 L, 62% predicted. The functional residual capacity is 1.85 L, 62% predicted. The residual volume is 1.41 L, 57% predicted. [place] Diffusion capacity: The diffusing capacity unadjusted for hemoglobin and carboxyhemoglobin is 12.9, 66% predicted. The diffusing capacity adjusted for alveolar volume is 4.27, 105% predicted. In comparison to prior pulmonary function test from 08/21/2020 the post bronchodilator FVC is unchanged from 1.77 L to 1.79 L. The post bronchodilator FEV1 is unchanged from 1.46 L to 1.52 L. The total lung capacity is unchanged from 3.05 L to 3.20 L. The functional residual capacity is increased from 1.47 L to 1.85 L. The residual volume is unchanged from 1.24 L to 1.41 L. The diffusing capacity unadjusted for hemoglobin and carboxyhemoglobin has increased from 10.7 to 12.9. The diffusing capacity adjusted for alveolar volume has increased from 3.70 to 4.27. Impression: There is a mild restrictive ventilatory abnormality with a normal FEV1. The spirometry is normal without evidence of an obstructive abnormality. There is no significant improvement after inhaling a single dose of albuterol. The diffusing capacity unadjusted for hemoglobin and carboxyhemoglobin is mildly decreased and normalizes when adjusted for alveolar volume. In comparison to prior pulmonary function test on 08/21/2020 there has been a greater than anticipated time dependent increase in the functional residual capacity and the DLCO with no significant change in the FVC, FEV1, total lung capacity and resid ual volume. Clinical correlation is recommended.
== END 2021-08-31 12:20 | disposition home or self-care (01) ==
PROVIDERS: PCP Family Medicine; Visit Provider Internal Medicine Critical Care Medicine
DX: J84.9 Interstitial pulmonary disease, unspecified (principal); R94.2 Abnormal results of pulmonary function studies
CPT/HCPCS: 94060; 94618; 94726; 94729

== ENCOUNTER 2021-09-04 13:41 | Emergency (ER) | payer MEDICARE, BC, OTHER, SELFPAY ==
--- NOTE | ~2021-09-04 | XR_ITS ---
EXAMINATION: XR chest 2V DATE: 09/04/2021 14:20 INDICATION: Productive cough TECHNIQUE: PA and lateral views of the chest are obtained. COMPARISON: 05/17/2021, 11/23/2020, 10/02/2015 FINDINGS: There are chronic reticular opacities with a mid and lower lung zone predominance, left gre ater than right, consistent with chronic interstitial lung disease. No definite acute airspace opacit ies are identified. There is no pleural effusion or pneumothorax. The cardiomediastinal silhouette is normal. There is moderate thoracic and severe upper lumbar spondylosis. IMPRESSION: 1. Chronic interstitial lung disease without definite acute cardiopulmonary abnormality. Reviewed, dictated and finalized at location A. IMPRESSION: 1. Chronic interstitial lung disease without definite acute cardiopulmonary abn ormality.
[2021-09-04 13:55] VITALS: BP 160/76; PULSE 111; RESP 16; TEMP 36.6; O2SAT 98
--- NOTE | 2021-09-04 14:05 | ED.URI ---
HPI - URI/Sore Throat General Chief Complaint: Upper Respiratory Infection Stated Complaint: Cough,Ear Pain Time Seen by Provider: 09/04/21 13:43 Source: patient Mode of arrival: ambulatory Limitations: no limitations History of Present Illness HPI Narrative: 80-year-old female presents to [facility] with complaints of nonproductive harsh cough for the past 2 days. Patient reports that she does have a history of pulmonary fibrosis but recently had testing done reports that her numbers are better than ever. Patient also reports right ear pressure for the past few days. Patient denies shortness of breath, wheezing, fever, bodies, chills. Patient is non-smoker. Patient has been using her albuterol inhaler with minimal relief. Patient denies sick contacts. Patient denies recent travel. MD elicited complaint: cough and other (right ear pain ) Onset (ago): day(s) (2) Able to tolerate fluids by mouth: Yes Related Data Home Medications Medication Instructions Recorded Confirmed cholecalciferol (vitamin D3) 25 25 mcg PO DAILY 07/14/19 09/04/21 mcg (1,000 unit) capsule vitamin B complex 1 tablet PO DAILY 04/05/20 09/04/21 celecoxib 200 mg capsule 200 mg PO DAILY cap 10/26/20 09/04/21 Allergies Allergy/AdvReac Type Severity Reaction Status Date / Time cefpodoxime Allergy Unknown C diff Verified 09/04/21 13:58 Cephalosporins Allergy Unknown Hives Verified 09/04/21 13:58 erythromycin base Allergy Unknown Unknown Verified 09/04/21 13:58 Penicillins Allergy Unknown Hives Verified 09/04/21 13:58 Review of Systems Constitutional: Constitutional: Denies chills, Denies fatigue, Denies fever(s) and Denies weakness ENT: Denies dysphagia, Denies epistaxis and Denies sore throat Comments: Right ear pressure Cardiovascular: Cardiovascular: Denies chest pain and Denies radiating jaw, neck or arm pain Respiratory: Respiratory: Denies chest congestion, Reports cough, Denies dyspnea and Denies wheezing Gastrointestinal: Gastrointestinal: Denies abdominal pain, Denies diarrhea, Denies nausea and Denies vomiting Integumentary/Breasts: Skin/Breast: Denies rash PMFSH Past Medical History Medical History Chronic interstitial lung disease Dyslipidemia History of Clostridium difficile infection Hx of gastric ulcer Hx of small bowel obstruction ILD (interstitial lung disease) Recurrent herpes labialis Unspecified osteoarthritis, unspecified site Vitamin B12 deficiency Surgical History Surgical History History of cholecystectomy 1970 History of right knee joint replacement 07/2019 History of sinus surgery 1995 Family History Family History Father Family history of Parkinson's disease, Onset Age: 85 Sibling Family history of type 1 diabetes mellitus, Onset Age: 36 Other Diabetes mellitus Family history of arthritis Social History Social History Smoking status: Never smoker Second hand tobacco smoke exposure: No Alcohol intake: current Drinks per week: 3 Alcohol use details: 1 glass of wine consumed occasionally Substance use: never Substance use type: does not use Gender identity (if verbalized by the patient): Female Spiritual care concerns: No Comments At time of signature, I agree with nursing past medical, surgical, social and family history. There is no relevant family history pertinent to the presenting complaint. Exam Const: General: no acute distress Nutritional Appearance: well nourished Orientation/consciousness: patient oriented x3 HENMT: Ears: external ears normal and TM abnormal dull on the right and erythematous on the right Mouth: Yes moist mucous membranes Throat: posterior oropharynx normal and uvula midline Resp: [facility]
[2021-09-04 14:53] VITALS: BP 157/74; PULSE 97
== END 2021-09-04 14:53 | disposition home or self-care (01) ==
PROVIDERS: Emergency Provider Nurse Practitioner Family; PCP Family Medicine
DX: H66.91 Otitis media, unspecified, right ear (principal); J06.9 Acute upper respiratory infection, unspecified; E78.5 Hyperlipidemia, unspecified; M19.90 Unspecified osteoarthritis, unspecified site; E53.8 Deficiency of other specified B group vitamins; J84.10 Pulmonary fibrosis, unspecified; Z96.651 Presence of right artificial knee joint
CPT/HCPCS: 71046; 99213; G0463

== ENCOUNTER 2022-01-19 10:54 | Emergency (ER) | payer MEDICARE, BC, OTHER, SELFPAY ==
[2022-01-19] VITALS (24 sets, daily range): BP systolic 143–206; BP diastolic 58–94; PULSE 48–70; RESP 12–26; TEMP 36.6; O2SAT 95–99
--- NOTE | ~2022-01-19 | CT_ITS ---
EXAMINATION: CT brain wo con INDICATION: Headache COMPARISON: 04/22/2020 TECHNIQUE: Standard unenhanced head CT. The dose-length product (DLP) was 605.33 mGy-cm. The mA was a djusted according to patient size. Iterative reconstruction technique was employed. FINDINGS: There is no acute intraparenchymal hemorrhage. No evidence of mass lesion. No evidence of a cute infarction. There is moderate periventricular and subcortical hypodensity probably related to sm all vessel ischemic disease. There is moderate prominence of the sulci and ventricles related to cere bral atrophy. Intracranial calcified cerebral atherosclerosis is noted. There are no extra-axial brad ections. There is no mass effect or midline shift. Changes in the globes are likely from ocular lens surgery. There is mild mucosal thickening of the paranasal sinuses. There is a right mastoid effusion . IMPRESSION: 1. No acute intracranial abnormality. 2. Age related findings. 3. Right mastoid effusion. Reviewed, dictated and finalized at location A.
--- NOTE | 2022-01-19 12:17 | ECG_ITS ---
Measurements Intervals [place] Rate: 53 P: 11 [place]: 159 QRS: -7 QRSD: 86 T: 24 QT: 444 QTc: 420 Interpretive Statements SINUS BRADYCARDIA POSSIBLE LEFT ATRIAL ENLARGEMENT [-0.1mV P WAVE IN V1/V2] ABNORMAL ECG NO PREVIOUS ECG AVAILABLE FOR COMPARISON Electronically Signed On 01-19-2022 17:24:11 CDT by Blaine Jeronimo M.D.
--- NOTE | 2022-01-19 12:18 | ED.GENADULT ---
HPI - General Adult General Chief complaint: Recheck/Abnormal Lab/Rx Stated complaint: high blood pressure Time Seen by Provider: 01/19/22 12:02 History of Present Illness HPI narrative: 81-year-old female with recent diagnosis of hypertension presenting to the emergency department for evaluation of elevated blood pressure. Patient states few weeks ago she did start metoprolol 50 mg p.o. daily. Patient states that her blood pressures have been running approximately 150/90 over the last few days but this morning when she woke up her blood pressure was 190 systolic. Patient states her blood pressure stay elevated. Patient states he did take her medication today. Patient did present to the very department for a recheck on her blood pressure and stayed elevated. Patient states she did develop some right-sided pressure in her forehead but denies any specific pain. Patient denies any chest pain or shortness of breath. Patient denies any prior history of heart attack but does have history of pulmonary fibrosis. Related Data Home Medications Medication Instructions Recorded Confirmed vitamin B complex (B 1 tablet PO DAILY 04/05/20 12/19/21 Complex-Vitamin B12 tablet) celecoxib 200 mg capsule (Celebrex) 200 mg PO DAILY 10/26/20 12/19/21 cholecalciferol (vitamin D3) 50 50 mcg PO DAILY 12/19/21 12/19/21 mcg (2,000 unit) tablet Allergies Allergy/AdvReac Type Severity Reaction Status Date / Time cefpodoxime Allergy Unknown C diff Verified 12/19/21 15:28 Cephalosporins Allergy Unknown Hives Verified 12/19/21 15:28 erythromycin base Allergy Unknown Unknown Verified 12/19/21 15:28 Penicillins Allergy Unknown Hives Verified 12/19/21 15:28 Review of Systems Review of Systems: CONSTITUTIONAL: Denies fever, chills, or sweats. EYES: Denies visual changes, redness, or discharge. ENT: Denies rhinorrhea, congestion, sore throat, or otalgia. CARDIOVASCULAR: Denies chest pain, palpitations, or edema. RESPIRATORY: Denies cough or dyspnea. GASTROINTESTINAL: Denies abdominal pain, nausea, vomiting, or diarrhea. GENITOURINARY: Denies dysuria or hematuria. SKIN: Denies rash or itching. MUSCULOSKELETAL: Denies back pain, joint pain, or myalgia. NEUROLOGIC: Right-sided pressure behind her forehead. PSYCHIATRIC: Denies anxiety or depression. PMFSH Past Medical History Medical History Chronic interstitial lung disease Dyslipidemia Essential (primary) hypertension History of Clostridium difficile infection Hx of gastric ulcer Hx of small bowel obstruction ILD (interstitial lung disease) Recurrent herpes labialis Unspecified osteoarthritis, unspecified site Vitamin B12 deficiency Surgical History Surgical History History of cholecystectomy 1969 History of right knee joint replacement 07/2019 History of sinus surgery 1995 Family History Family History Father Family history of Parkinson's disease, Onset Age: 85 Sibling Family history of type 1 diabetes mellitus, Onset Age: 36 Other Diabetes mellitus Family history of arthritis Social History Social History Smoking status: Never smoker Second hand tobacco smoke exposure: No Alcohol intake: current Drinks per week: 3 Alcohol use details: 1 glass of wine consumed occasionally Substance use: never Substance use type: does not use Gender identity (if verbalized by the patient): Female Spiritual care concerns: No Exam Narrative: APPEARANCE: Well appearing, no pain, no distress, well-nourished. HEAD: normocephalic, atraumatic. EYES: PERRLA/EOMI, conjunctivae clear. NOSE: Normal no drainage THROAT: Pharynx clear, no exudate. NECK: Supple. No adenopathy, no masses. RESPIRATORY: Airway patent, respirations nonlabore
[2022-01-19 13:54] LABS: Basophils Absolute Auto 0.1 K/mm3 (0.0-0.1); Basophils Percent Auto 1.2 % (0.2-1.2); Eosinophils Absolute Auto 0.5 K/mm3 (0-0.3); Eosinophils Percent Auto 6.2 % (0-4.4); Hematocrit 41.1 % (37.0-47.0); Immature Granulocyte Absolute 0.02 K/mm3 (0.00-0.031); Immature Granulocyte Percent A 0.2 % (0-0.5); Lymphocytes Percent Auto 20.8 % (18.3-44.2); Mean Corpuscular HGB Conc 31.6 g/dl (32-36); Mean Corpuscular Volume 94.9 fl (80-100); Mean Platelet Volume 8.9 fl (7.4-10.4); Monocytes Absolute Auto 0.8 K/mm3 (0.1-0.6); Monocytes Percent Auto 8.8 % (2.6-8.5); Neutrophils Absolute Auto 5.5 K/mm3 (1.3-6.7); Neutrophils Percent Auto 62.8 % (45.5-73.1); Platelet Count Result 294 k/mm3 (150-375); Red Blood Count 4.33 M/mm3 (4.2-5.4); Red Cell Distribution Width 12.5 % (11.5-14.5); White Blood Count 8.7 K/mm3 (4.5-10.0)
[2022-01-19 14:04] LABS: Alanine Aminotransferase 10 U/L (6-35); Albumin Level 4.5 g/dL (3.5-5.1); Alkaline Phosphatase 75 U/L (38-126); Anion Gap 5 mmol/L (8-16); Aspartate Amino Transferase 25 U/L (14-36); Bilirubin,Total 0.5 mg/dL (0.2-1.3); Blood Urea Nitrogen 19 mg/dL (7-17); Calcium 9.7 mg/dL (8.4-10.2); Carbon Dioxide 29 mmol/L (22-30); Chloride 102 mmol/L (98-107); Estimated CRCL calculation 45 ml/min; Estimated Glomerular Filt Rate 60; Glucose 114 mg/dL (65-110); Potassium 4.7 mmol/L (3.4-5.0); Sodium 136 mmol/L (137-145)
[2022-01-19 14:06] LABS: Prothrombin Time 12.6 Seconds (11.1-14.7)
[2022-01-19 14:07] LABS: Partial Thromboplastin Time 25.2 SECONDS (22.3-36.8)
[2022-01-19 14:15] LABS: Troponin I < 0.012 ng/mL (0.000-0.034)
[2022-01-19 14:48] LABS: Appearance Urine Clear (Clear); Bilirubin Urine Negative (Negative); Glucose Urine UA Negative (Negative); Ketones Urine Negative (Negative); Leukocyte Esterase Ur 1+ LEU/UL (Negative); Nitrate Urine Negative (Negative); Protein Urine Negative (Negative); Specific Grav Ur 1.015 (1.001-1.035); Urobilinogen Urine 0.2 mg/dL (<2.0)
[2022-01-19 14:49] LABS: Add Urine Microscopic? YES; Blood Urine Trace-Intact (Negative); Color Urine Light Yellow (Yellow)
[2022-01-19 14:54] LABS: Bacteria Urine Trace /hpf; Mucus Urine Rare /lpf; RBC Urine 0-2 /hpf (0-2); Squamous Epithelial Cell Urine Rare /hpf (Few); WBC Urine 0-3 /hpf
== END 2022-01-19 15:53 | disposition home or self-care (01) ==
PROVIDERS: Emergency Provider Emergency Medicine; PCP Family Medicine
DX: I10 Essential (primary) hypertension (principal); J84.9 Interstitial pulmonary disease, unspecified; E78.5 Hyperlipidemia, unspecified; E53.8 Deficiency of other specified B group vitamins; M19.90 Unspecified osteoarthritis, unspecified site; Z96.651 Presence of right artificial knee joint; R00.1 Bradycardia, unspecified; R94.31 Abnormal electrocardiogram [ECG] [EKG]; H74.8X1 Other specified disorders of right middle ear and mastoid
CPT/HCPCS: 36415; 70450; 80053; 81001; 84443; 84484; 85025; 85610; 85730; 93005; 96374; 99284

== ENCOUNTER 2022-09-12 07:25 | Outpatient (CLI) | payer MEDICARE, BC, OTHER, SELFPAY ==
--- NOTE | ~2022-09-12 | MM_ITS ---
EXAMINATION: MM screening kamryn BI w guillermo HISTORY: Screening mammogram TECHNIQUE: Craniocaudal and mediolateral oblique 3-D tomosynthesis images were obtained and synthetic 2-D images were generated. CAD analysis was submitted and interpreted. COMPARISON: 05/07/2021, 02/11/2020, 02/05/2019 BREAST PARENCHYMAL COMPOSITION:The breasts are almost entirely fatty FINDINGS: No suspicious mass, calcification, or architectural distortion are identified in either lisa ast to suggest malignancy. There has been no suspicious interval change. IMPRESSION: No mammographic evidence of malignancy. Recommend routine screening mammography in one year. BI-RADS Category 1: Negative Reviewed, dictated and finalized at location .
== END 2022-09-12 07:26 | disposition home or self-care (01) ==
PROVIDERS: PCP Family Medicine; Visit Provider Nurse Practitioner
DX: Z12.31 Encounter for screening mammogram for malignant neoplasm of breast (principal)
CPT/HCPCS: 77063; 77067

== ENCOUNTER 2022-10-12 14:13 | Emergency (ER) | payer MEDICARE, BC, OTHER, SELFPAY ==
[2022-10-12 14:24] VITALS: BP 148/68; PULSE 105; RESP 16; TEMP 36.3; O2SAT 98
--- NOTE | 2022-10-12 15:03 | ED.URI ---
HPI - URI/Sore Throat General Chief Complaint: Upper Respiratory Infection Stated Complaint: cough; ear pain; runny nose Time Seen by Provider: 10/12/22 15:03 Source: patient Mode of arrival: ambulatory Limitations: no limitations History of Present Illness HPI Narrative: 81-year-old female presents with complaint nasal congestion, postnasal drainage, sore throat, sneezing, coughing for the past 5 days. Reports right ear pain starting today. Afebrile. Started Claritin with no relief of symptoms. Reports history of multiple sinus issues. No chest pain or shortness of breath. All systems reviewed and negative except as noted above. Related Data Home Medications Medication Instructions Recorded Confirmed vitamin B complex (B 1 tablet PO DAILY 04/05/20 06/05/22 Complex-Vitamin B12 tablet) cholecalciferol (vitamin D3) 50 50 mcg PO DAILY 12/19/21 06/05/22 mcg (2,000 unit) tablet celecoxib 200 mg capsule mg 10/12/22 Allergies Allergy/AdvReac Type Severity Reaction Status Date / Time cefpodoxime Allergy Unknown C diff Verified 10/12/22 14:20 Cephalosporins Allergy Unknown Hives Verified 10/12/22 14:20 erythromycin base Allergy Unknown Unknown Verified 10/12/22 14:20 Penicillins Allergy Unknown Hives Verified 10/12/22 14:20 Review of Systems Review of Systems: CONSTITUTIONAL: Denies fever, chills, or sweats. EYES: Denies visual changes, redness, or discharge. ENT Reports rhinorrhea, congestion, sore throat, right ear pain. CARDIOVASCULAR: Denies chest pain, palpitations, or edema. RESPIRATORY: Reports cough. Denies dyspnea. GASTROINTESTINAL: Denies abdominal pain, nausea, vomiting, or diarrhea. GENITOURINARY: Denies dysuria or hematuria. SKIN: Denies rash or itching. MUSCULOSKELETAL: Denies back pain, joint pain, or myalgia. NEUROLOGIC: Denies headache, numbness, or weakness. PSYCHIATRIC: Denies anxiety or depression. All other systems reviewed are negative, except as documented in HPI. [facility] Past Medical History Medical History (Updated 10/12/22 @ 15:11 by Maren Guallpa NP) Chronic interstitial lung disease Dyslipidemia Essential (primary) hypertension History of Clostridium difficile infection Hx of gastric ulcer Hx of small bowel obstruction Recurrent herpes labialis Unspecified osteoarthritis, unspecified site Vitamin B12 deficiency Surgical History Surgical History History of cholecystectomy 1969 History of right knee joint replacement 07/2019 History of sinus surgery 1995 Family History Family History Father Family history of Parkinson's disease, Onset Age: 85 Sibling Family history of type 1 diabetes mellitus, Onset Age: 36 Other Diabetes mellitus Family history of arthritis Social History Social History (Updated 06/05/22 @ 14:57 by Cheryl [facility]) Smoking status: Never smoker Second hand tobacco smoke exposure: No Alcohol intake: current Drinks per week: 3 Alcohol use details: 1 glass of wine consumed occasionally Substance use: never Substance use type: does not use Lack of Transportation: No Lack of Food: Never True Current Housing: I Have Housing Concerned About Future Housing: No Difficulty Paying Gas/Electric Bills: No Difficulty Paying for Meds: No Currently Unemployed: No Difficulty w/ Childcare or Family Care: No Gender identity (if verbalized by the patient): Female Spiritual care concerns: No Comments At time of signature, agree with nursing past medical, surgical, social and family history. There is no relevant family history pertinent to the presenting complaint. Exam Narrative: GENERAL: This is a well-nourished, well-developed patient, in no apparent distress. HEAD: normocephalic, atraumatic. EYES: PERRL. Sclera clear/white. Vision is grossly intact. EARS: Ex
== END 2022-10-12 15:18 | disposition home or self-care (01) ==
PROVIDERS: Emergency Provider Nurse Practitioner Family; PCP Family Medicine
DX: J01.90 Acute sinusitis, unspecified (principal); H65.01 Acute serous otitis media, right ear; E78.5 Hyperlipidemia, unspecified; I10 Essential (primary) hypertension; M19.90 Unspecified osteoarthritis, unspecified site; Z96.651 Presence of right artificial knee joint; E53.8 Deficiency of other specified B group vitamins; Z86.19 Personal history of other infectious and parasitic diseases
CPT/HCPCS: 99213; G0463

== ENCOUNTER 2023-01-23 12:19 | Emergency (ER) | payer MEDICARE, BC, OTHER, SELFPAY ==
[2023-01-23 12:33] VITALS: BP 140/79; PULSE 96; RESP 16; TEMP 36.6; O2SAT 95
[2023-01-23 12:34] VITALS: BP 140/79; PULSE 96; RESP 16; TEMP 36.6; O2SAT 95
--- NOTE | 2023-01-23 13:39 | ED.URI ---
HPI - URI/Sore Throat General Chief Complaint: Upper Respiratory Infection Stated Complaint: stuffy head,cough Time Seen by Provider: 01/23/23 13:30 Source: patient, RN notes reviewed and old records reviewed Mode of arrival: ambulatory Limitations: no limitations History of Present Illness HPI Narrative: 82 year old female who presents to [facility] care with complaints of nasal congestion and drainage, right ear pain/pressure and cough since Friday with symptoms progressively worsening. Patient reports that she has history of pulmonary fibrosis and did use her inhaler last night which did help her cough some. Patient reports that she has been taking Mucinex and she also started taking Claritin 2 days ago. Patient reports no fevers, chills or sweats or body aches, did home COVID test yesterday which was negative. MD elicited complaint: cough, rhinorrhea, nasal congestion and other (acute cough) Pertinent past history: other (pulmonary fibrosis) Onset (ago): day(s) (5) Consistency: constant Description of mucous: clear Able to tolerate fluids by mouth: Yes Treatments prior to arrival: other (Mucinex, Claritin and Albuterol inhaler) Related Data Home Medications Medication Instructions Recorded Confirmed vitamin B complex (B 1 tablet PO DAILY 04/05/20 01/23/23 Complex-Vitamin B12 tablet) cholecalciferol (vitamin D3) 50 50 mcg PO DAILY 12/19/21 01/23/23 mcg (2,000 unit) tablet celecoxib 200 mg capsule 200 mg PO DAILY 10/12/22 01/23/23 Allergies Allergy/AdvReac Type Severity Reaction Status Date / Time Cephalosporins Allergy Intermediate Hives Verified 01/23/23 12:32 Penicillins Allergy Intermediate Hives Verified 01/23/23 12:32 erythromycin base Allergy Unknown Unknown Verified 01/23/23 12:32 cefpodoxime AdvReac Intermediate C diff Verified 01/23/23 12:32 Review of Systems Review of Systems: CONSTITUTIONAL: Denies malaise, chills, sweats, or fever. EYES: Denies visual changes, redness, or discharge. ENT: Reports rhinorrhea, congestion,no sinus pain, right otalgia no sore throat. CARDIOVASCULAR: Denies chest pain, palpitations, or edema. RESPIRATORY: Reports cough with some wheezes,? Denies acute dyspnea. GASTROINTESTINAL: Denies abdominal pain, nausea, vomiting, diarrhea SKIN: Denies rash or itching. MUSCULOSKELETAL: Denies myalgia. NEUROLOGIC: Denies headache. All systems reviewed & are unremarkable except as noted in HPI and below PMFSH Past Medical History Medical History Chronic interstitial lung disease Dyslipidemia Essential (primary) hypertension History of Clostridium difficile infection Hx of gastric ulcer Hx of small bowel obstruction Recurrent herpes labialis Unspecified osteoarthritis, unspecified site Vitamin B12 deficiency Surgical History Surgical History History of cholecystectomy 1969 History of right knee joint replacement 07/2019 History of sinus surgery 1995 Family History Family History Father Family history of Parkinson's disease, Onset Age: 85 Sibling Family history of type 1 diabetes mellitus, Onset Age: 36 Other Diabetes mellitus Family history of arthritis Social History Social History Smoking status: Never smoker Second hand tobacco smoke exposure: No Alcohol intake: current Drinks per week: 3 Alcohol use details: 1 glass of wine consumed occasionally Substance use: never Substance use type: does not use Lack of Transportation: No Lack of Food: Never True Current Housing: I Have Housing Concerned About Future Housing: No Difficulty Paying Gas/Electric Bills: No Difficulty Paying for Meds: No Currently Unemployed: No Difficulty w/ Childcare or Family Care: No Gender identit
== END 2023-01-23 14:00 | disposition home or self-care (01) ==
PROVIDERS: Emergency Provider Registered Nurse; PCP Family Medicine
DX: J06.9 Acute upper respiratory infection, unspecified (principal); R05.9 Cough, unspecified; H60.311 Diffuse otitis externa, right ear; J84.9 Interstitial pulmonary disease, unspecified; E78.5 Hyperlipidemia, unspecified; I10 Essential (primary) hypertension; M19.90 Unspecified osteoarthritis, unspecified site; Z96.651 Presence of right artificial knee joint; E53.8 Deficiency of other specified B group vitamins
CPT/HCPCS: 99213; G0463

== ENCOUNTER 2023-05-21 08:10 | Emergency (ER) | payer MEDICARE, BC, OTHER, SELFPAY ==
--- NOTE | 2023-05-21 08:11 | ED.URI ---
HPI - URI/Sore Throat General Chief Complaint: Upper Respiratory Infection Stated Complaint: Cough/Ears Irritation Time Seen by Provider: 05/21/23 08:33 Source: patient and RN notes reviewed Mode of arrival: ambulatory Limitations: no limitations History of Present Illness HPI Narrative: 82-year-old female presents concern for cough, ear pressure and pain. Reports she had COVID 2 weeks ago and since then has had sinus pain, pressure, drainage. Reports her ears started hurting recently and she began coughing about 2 nights ago. She has been taking Mucinex and Tessalon Perles without relief. MD elicited complaint: cough Related Data Home Medications Medication Instructions Recorded Confirmed vitamin B complex (B 1 tablet PO DAILY 04/05/20 05/21/23 Complex-Vitamin B12 tablet) cholecalciferol (vitamin D3) 50 50 mcg PO DAILY 12/19/21 05/21/23 mcg (2,000 unit) tablet celecoxib 200 mg capsule 200 mg PO DAILY 10/12/22 05/21/23 Allergies Allergy/AdvReac Type Severity Reaction Status Date / Time Cephalosporins Allergy Intermediate Hives Verified 05/21/23 08:27 Penicillins Allergy Intermediate Hives Verified 05/21/23 08:27 cefpodoxime AdvReac Intermediate C diff Verified 05/21/23 08:27 Review of Systems Review of Systems: CONSTITUTIONAL: Reports malaise, chills EYES: Denies visual changes, redness, or discharge. ENT: Reports rhinorrhea, sinus pain, otalgia CARDIOVASCULAR: Denies chest pain, palpitations, or edema. RESPIRATORY: Reports cough. Denies dyspnea. GASTROINTESTINAL: Denies abdominal pain, nausea, vomiting, diarrhea SKIN: Denies rash or itching. MUSCULOSKELETAL: Denies myalgia. NEUROLOGIC: Denies headache. All systems reviewed & are unremarkable except as noted in HPI and below PMFSH Past Medical History Medical History Chronic interstitial lung disease Dyslipidemia Essential (primary) hypertension History of Clostridium difficile infection Hx of gastric ulcer Hx of small bowel obstruction Recurrent herpes labialis Unspecified osteoarthritis, unspecified site Vitamin B12 deficiency Surgical History Surgical History History of cholecystectomy 1969 History of right knee joint replacement 07/2019 History of sinus surgery 1995 Family History Family History Father Family history of Parkinson's disease, Onset Age: 85 Sibling Family history of type 1 diabetes mellitus, Onset Age: 36 Other Diabetes mellitus Family history of arthritis Social History Social History Smoking status: Never smoker Second hand tobacco smoke exposure: No Alcohol intake: current Drinks per week: 3 Alcohol use details: 1 glass of wine consumed occasionally Substance use: never Substance use type: does not use Lack of Transportation: No Lack of Food: Never True Current Housing: I Have Housing Concerned About Future Housing: No Difficulty Paying Gas/Electric Bills: No Difficulty Paying for Meds: No Currently Unemployed: No Difficulty w/ Childcare or Family Care: No Gender identity (if verbalized by the patient): Female Spiritual care concerns: No Comments At time of signature, agree with nursing past medical, surgical, social and family history. There is no relevant family history pertinent to the presenting complaint Exam Narrative: GENERAL: Nontoxic-appearing, well-nourished, and in no acute distress. HEAD: Normocephalic EYES: PERRLA, conjunctivae clear ENT: Nares clear, turbinates edematous and erythematous. Mucous membranes moist. TM pearly groves with dull light reflex bilaterally; no tragal tenderness. Oropharynx not erythematous without lesions. Tonsils not enlarged and without exudate, no drooling, no hoarseness, no t
[2023-05-21 08:22] VITALS: BP 130/70; PULSE 100; RESP 20; TEMP 36.4; O2SAT 95
== END 2023-05-21 08:50 | disposition home or self-care (01) ==
PROVIDERS: Emergency Provider Nurse Practitioner; PCP Family Medicine
DX: J32.9 Chronic sinusitis, unspecified (principal); E78.5 Hyperlipidemia, unspecified; I10 Essential (primary) hypertension; M19.90 Unspecified osteoarthritis, unspecified site; E53.8 Deficiency of other specified B group vitamins; J84.9 Interstitial pulmonary disease, unspecified; Z96.651 Presence of right artificial knee joint
CPT/HCPCS: 99213; G0463

== ENCOUNTER 2023-05-28 15:39 | Outpatient (CLI) | payer MEDICARE, BC, OTHER, SELFPAY ==
--- NOTE | ~2023-05-28 | XR_ITS ---
XR chest 2V DATE: 05/28/2023 16:08 INDICATION: Shortness of breath TECHNIQUE: PA and lateral views COMPARISON: September 04, 2021 2 view chest May 17, 2021 2 view chest 11/23/2020 CT chest high resolution scan FINDINGS: Bilateral chronic interstitial changes, most pronounced in the left mid and particularly le ft lower lung zones. The left-sided interstitial changes appear mildly increased since September 04, 2021 over this may be due to diminished expansion of the lung. Superimposed interstitial pneumonitis is n ot definitively excluded. Clinical correlation is advised. Heart size appears normal. Aortic calcification. No pleural effusion or pulmonary vascular congestion or pneumothorax. Diffuse osteopenia. Superimposed IMPRESSION: Chronic interstitial changes previously attributed to usual interstitial pneumonia inters titial fibrosis, left greater than right, stable or increased since 09/04/2021 Reviewed, dictated and finalized at location B. GER DISCOVERY IMPRESSION: Chronic interstitial changes previously attributed to usual interst itial pneumonia interstitial fibrosis, left greater than right, stable or incre ased since 09/04/2021
[2023-05-28 16:12] LABS: Basophils Percent Auto 0.4 % (0.2-1.2); Eosinophils Absolute Auto 0.2 K/mm3 (0-0.3); Eosinophils Percent Auto 2.1 % (0-4.4); Hematocrit 42.5 % (37.0-47.0); Hemoglobin 13.7 g/dL (12.0-15.0); Immature Granulocyte Absolute 0.02 K/mm3 (0.00-0.031); Immature Granulocyte Percent A 0.3 % (0-0.5); Lymphocytes Percent Auto 27.4 % (18.3-44.2); Mean Corpuscular HGB Conc 32.2 g/dl (32-36); Mean Corpuscular Hemoglobin 30.4 pg (26-34); Mean Corpuscular Volume 94.4 fl (80-100); Mean Platelet Volume 9.1 fl (7.4-10.4); Monocytes Absolute Auto 0.9 K/mm3 (0.1-0.6); Monocytes Percent Auto 12.2 % (2.6-8.5); Neutrophils Absolute Auto 4.2 K/mm3 (1.3-6.7); Neutrophils Percent Auto 57.6 % (45.5-73.1); Platelet Count Result 277 k/mm3 (150-375); Red Cell Distribution Width 13.2 % (11.5-14.5); White Blood Count 7.3 K/mm3 (4.5-10.0)
[2023-05-28 16:24] LABS: Anion Gap 9 mmol/L (8-16); Blood Urea Nitrogen 26 mg/dL (7-17); Calcium 8.9 mg/dL (8.4-10.2); Carbon Dioxide 26 mmol/L (22-30); Chloride 99 mmol/L (98-107); Estimated Glomerular Filt Rate 53; Glucose 119 mg/dL (65-110); Sodium 134 mmol/L (137-145)
[2023-05-28 16:54] LABS: Influenza A QL RT-PCR Positive (Negative); Influenza B QL RT-PCR Negative (Negative); RSV RNA, RT-PCR Negative (Negative); SARS-CoV-2 RNA PCR Negative (Negative)
== END 2023-05-28 15:40 | disposition home or self-care (01) ==
PROVIDERS: PCP Family Medicine; Visit Provider Internal Medicine Critical Care Medicine
DX: R73.03 Prediabetes (principal); R91.8 Other nonspecific abnormal finding of lung field; Z20.822 Contact with and (suspected) exposure to COVID-19
CPT/HCPCS: 36415; 71046; 80048; 85025; 87637

== ENCOUNTER 2023-06-18 14:01 | Outpatient (CLI) | payer MEDICARE, BC, OTHER, SELFPAY ==
[2023-06-18 19:35] LABS: Iron 91 ug/dL (37-170)
[2023-06-18 19:45] LABS: Percent Iron Saturation 25 % (20-50)
== END 2023-06-18 14:02 | disposition home or self-care (01) ==
LOC: ANHGOSHLAB 14:03
PROVIDERS: PCP Family Medicine; Visit Provider Nurse Practitioner Family
DX: R53.83 Other fatigue (principal); E53.8 Deficiency of other specified B group vitamins; D64.9 Anemia, unspecified
CPT/HCPCS: 36415; 82607; 83540; 83550

== ENCOUNTER 2024-01-12 07:05 | Outpatient (CLI) | payer MEDICARE, BC, OTHER, SELFPAY ==
--- NOTE | ~2024-01-12 | MM_ITS ---
EXAMINATION: MM screening kamryn BI w guillermo HISTORY: Screening TECHNIQUE: Craniocaudal and mediolateral oblique 3-D tomosynthesis images were obtained and synthetic 2-D images were generated. CAD analysis was submitted and interpreted. COMPARISON: Comparison to multiple prior studies sequentially, with oldest reviewed study dated 01/16. BREAST PARENCHYMAL COMPOSITION: Not dense: There are scattered areas of fibroglandular density. FINDINGS: There is no evidence of suspicious mass, calcification, or architectural distortion to sugg est malignancy in either breast. There has been no suspicious interval change. IMPRESSION: 1. No mammographic evidence of malignancy. 2. Recommend routine screening mammography in one year. BI-RADS Category 1: Negative Reviewed, dictated and finalized at location B.
== END 2024-01-12 07:06 | disposition home or self-care (01) ==
PROVIDERS: PCP Family Medicine; Visit Provider Family Medicine
DX: Z12.31 Encounter for screening mammogram for malignant neoplasm of breast (principal)
CPT/HCPCS: 77063; 77067

== ENCOUNTER 2024-02-25 14:09 | Outpatient (CLI) | payer MEDICARE, BC, OTHER, SELFPAY ==
[2024-02-25 14:40] VITALS: PULSE 83; O2SAT 96
[2024-02-25 14:50] VITALS: PULSE 92; O2SAT 86
[2024-02-25 14:55] VITALS: PULSE 93; O2SAT 88
[2024-02-25 15:00] VITALS: PULSE 95; O2SAT 91
[2024-02-25 15:10] VITALS: PULSE 82; O2SAT 96
--- NOTE | 2024-02-25 15:27 | HOMEO2EVAL ---
Evaluation was performed at [facility] Home Oxygen Evaluation RC: Home Oxygen (O2) Evaluation Start: 02/25/24 15:23 Freq: Status: Active Protocol: RPE Activity Type Activity Date Activity User E-sign Co-sign Detail Recorded Client Recorded Date Recorded By Document 02/25/24 14:40 PKH [email or web address] 02/25/24 15:27 PKH Document 02/25/24 14:50 PKH [email or web address] 02/25/24 15:27 PKH Document 02/25/24 14:55 PK [email or web address]_012 02/25/24 15:27 PK Document 02/25/24 15:00 PK [email or web address] 02/25/24 15:27 PKH Document 02/25/24 15:10 PK [email or web address]_012 02/25/24 15:27 PKH 02/25/24 02/25/24 02/25/24 14:40 14:50 14:55 Home O2 Evaluation [Oxygen] -Test Phase Resting Exercise Exercise -Oxygen Delivery Room Air Room Air Nasal Cannula -Oxygen Flow Rate (L/min) 1 [Pulse Oximetry] -Pulse Oximetry (90-100 %) 96 86 L 88 L [Pulse Rate] -Pulse Rate (60-100 beats/min) 83 92 93 [Evaluation] -Activity Tolerance [Exercise] -Ambulation Distance (feet) -Ambulation Distance (meters) [Charges] -Evaluation Charges O2 Evaluation by Pulmonary 02/25/24 02/25/24 15:00 15:10 Home O2 Evaluation [Oxygen] -Test Phase Exercise Resting -Oxygen Delivery Nasal Cannula Room Air -Oxygen Flow Rate (L/min) 2 [Pulse Oximetry] -Pulse Oximetry (90-100 %) 91 96 [Pulse Rate] -Pulse Rate (60-100 beats/min) 95 82 [Evaluation] -Activity Tolerance Good [Exercise] -Ambulation Distance (feet) 500 -Ambulation Distance (meters) 152.39 [Charges] -Evaluation Charges
--- NOTE | 2024-02-26 07:07 | P.PCNPFT_ITS ---
PFT Procedure Performed PFT Procedure Performed Spirometry with Pre/Post Bronchodilator Plethysmography (Lung Vol) Diffusing Cap (DLCO) Flow Vol Loop PFT Interpretation This is a pulmonary function test with pre and post-bronchodilator spirometry, plethysmography and diffusing capacity. The test was performed and results interpreted in accordance with the 2019 and 2005 ATS/ERS Task Force guidelines respectively using the Global Lung Function Initiative-2012 reference equations. Patient demonstrated good effort and cooperation. Reproducibility criteria were met. The quality of the pre bronchodilator spirometry maneuver was Grade A and post bronchodilator spirometry maneuver was Grade A. Findings: Spirometry: The contour of the pre bronchodilator and post bronchodilator expiratory flow tracing demonstrates a normal contour and 2 of 6 maneuvers, a notched pattern in 2 of 6 maneuvers, and a mid expiratory pause or knee pattern in 2 of 6 maneuvers. The contour the inspiratory flow tracing is normal. The pre bronchodilator FVC is 1.34 L, 53% predicted. The pre bronchodilator FEV1 is 1.13 L, 60% predicted. The pre bronchodilator FEV1: FVC ratio is 84%. The post bronchodilator FVC is 1.29 L, representing a 4% decrease. The post bronchodilator FEV1 is 1.10 L, representing a 3% decrease. The post bronchodilator FEV1: FVC ratio is 85%. Plethysmography: The total lung capacity is 2.73 L, 53% predicted. The functional residual capacity is 1.42 L, 47% predicted. The residual volume is 1.29 L, 51% predicted. Diffusing capacity: The diffusing capacity unadjusted for hemoglobin and carboxyhemoglobin is 8.4, 44% predicted. The diffusing capacity adjusted for alveolar volume is 3.52, 88% predicted. In comparison to previous pulmonary function testing on 08/31/2021 the notched and knee pattern of the expiratory flow tracing are new. The post bronchodilator FVC has decreased from 1.79 L to 1.29 L. The post bronchodilator FEV1 has decreased from 1.52 L to 1.10 L. The total lung capacity has decreased from 3.20 L to 2.73 L. The functional residual capacity is decreased from 1.85 L to 1.42 L. The residual volume is unchanged from 1.41 L to 1.29 L. The diffusing capacity unadjusted for hemoglobin and carboxyhemoglobin is decreased from 12.9 to 8.4. The diffusing capacity adjusted for alveolar volume has decreased from 4.27 to 3.52. Impression: The notched expiratory flow pattern has been described with coughing or tracheobronchomalacia. The knee expiratory flow pattern can be a normal variant or pathologic and has been attributed to a choke point section of the bronchial tree. The normal variant is more common in younger female patient s, decreases with age and is more pronounced in the post bronchodilator efforts. The pattern has also been described with kyphosis, kyphoscoliosis, central obstructing mass, and post lung transplantation. There is a moderate restrictive ventilatory abnormality. The spirometry is normal without evidence of an obstructive abnormality. There is no significant improvement after inhaling a single dose of albuterol. The diffusing capacity unadjusted for hemoglobin and carboxyhemoglobin is moderately decreased and normalizes when adjusted for alveolar volume. In comparison to previous pulmonary function testing on 08/31/2021 there has been the development of a notched and knee expiratory flow pattern. There has been a greater than anticipated time dependent decrease in the FVC, FEV1, total lung capacity, functional residual capacity and diffusing capacity with no significant change in the residual volume. Clinical correlation is recommended.
== END 2024-02-25 14:10 | disposition home or self-care (01) ==
LOC: ANHPFT 14:11
PROVIDERS: PCP Family Medicine; Visit Provider Internal Medicine Critical Care Medicine
DX: J84.9 Interstitial pulmonary disease, unspecified (principal)
CPT/HCPCS: 94060; 94618; 94726; 94729

== ENCOUNTER 2024-05-05 13:08 | Emergency (ER) | payer MEDICARE, BC, OTHER, SELFPAY ==
--- NOTE | 2024-05-05 13:13 | ED.URI ---
HPI - URI/Sore Throat General Chief Complaint: Upper Respiratory Infection Stated Complaint: scratchy throat,right ear pressure,cough Time Seen by Provider: 05/05/24 13:48 Source: patient and RN notes reviewed Mode of arrival: ambulatory Limitations: no limitations History of Present Illness HPI Narrative: 83-year-old female presents with concern for 4 day history of sinus congestion, pressure, ear pain and pressure scratchy throat. Patient has history of interstitial lung disease and is on 2 L nasal cannula she reports slightly increased. She has not taken any medication for her symptoms MD elicited complaint: sore throat, nasal congestion and other (ear pain) Related Data Home Medications ?Medication ?Instructions ?Recorded ?Confirmed ?Last Taken ?Type vitamin B complex (B 1 tablet PO DAILY 04/05/20 05/05/24 Unknown History Complex-Vitamin B12 tablet) celecoxib 200 mg capsule 200 mg PO DAILY 12/08/23 05/05/24 Unknown History cholecalciferol (vitamin D3) 125 125 mcg PO DAILY 12/08/23 05/05/24 Unknown History mcg (5,000 unit) capsule Allergies Allergy/AdvReac Type Severity Reaction Status Date / Time Cephalosporins Allergy Intermediate Hives Verified 03/26/24 11:43 Penicillins Allergy Intermediate Hives Verified 03/26/24 11:43 cefpodoxime AdvReac Intermediate C diff Verified 03/26/24 11:43 Review of Systems Review of Systems: CONSTITUTIONAL: Denies malaise, chills, sweats, or fever. EYES: Denies visual changes, redness, or discharge. ENT: Reports rhinorrhea, congestion, sinus pain, otalgia and scratchy throat. CARDIOVASCULAR: Denies chest pain, palpitations, or edema. RESPIRATORY: Reports cough. Denies dyspnea. GASTROINTESTINAL: Denies abdominal pain, nausea, vomiting, diarrhea SKIN: Denies rash or itching. MUSCULOSKELETAL: Denies myalgia. NEUROLOGIC: Denies headache. All systems reviewed & are unremarkable except as noted in HPI and below PMFSH Past Medical History Medical History Arthritis Chronic interstitial lung disease Dyslipidemia Essential (primary) hypertension History of Clostridium difficile infection Hx of gastric ulcer Hx of small bowel obstruction Recurrent herpes labialis Unspecified osteoarthritis, unspecified site Vitamin B12 deficiency Surgical History Surgical History History of cholecystectomy 1970 History of right knee joint replacement 07/2019 History of sinus surgery 1995 Family History Family History Father Family history of Parkinson's disease, Onset Age: 85 Sibling Family history of type 1 diabetes mellitus, Onset Age: 36 Other Diabetes mellitus Family history of arthritis Social History Social History Smoking status: Never smoker Second hand tobacco smoke exposure: No Alcohol intake: current Drinks per week: 3 Alcohol use details: 1 glass of wine consumed occasionally Substance use: never Substance use type: does not use Lack of Transportation: No Lack of Food: Never True Current Housing: I Have Housing Concerned About Future Housing: No Difficulty Paying Gas/Electric Bills: No Difficulty Paying for Meds: No Currently Unemployed: No Difficulty w/ Childcare or Family Care: No Gender identity (if verbalized by the patient): Female Spiritual care concerns: No Comments At time of signature, agree with nursing past medical, surgical, social and family history. There is no relevant family history pertinent to the presenting complaint Exam Narrative: GENERAL: Well-appearing, well-nourished, and in no acute distress. HEAD: Normocephalic EYES: PERRLA, conjunctivae clear ENT: Nares clear, turbinates edematous and erythematous. Mucous membranes moist. TM pearly groves with dull light reflex on the right, erythematous and bulging on the left; no tragal tenderness. Oropharynx not erythematous without lesions. Tonsils not enlarged and without exudate, no drooling, no hoarseness, no trismus, uvula midline. NECK: Supple. No lymphadenopathy CHEST: Clear to auscultation, breath sounds equal. No wheezing, rhonchi, rales, or stridor. No respiratory distress, speaks in full sentences. HEART: Regular rate and rhythm. No murmur heard. SKIN: Warm, dry, no rash. NEURO: Alert and oriented x3. PSYCH: Normal mood and affect Course Course Emergency Course: Patient is aware of diagnosis, understands and agrees to treatment plan. Anticipatory guidance given. Patient agrees to follow-up as directed and is aware of reasons to seek care at the emergency department. Portions of this record may have been created with voice recognition software Level of Care: Express Care Visit Vital Signs Vital signs: Vital Signs Temperature 98.3 F 05/05/24 13:25 Pulse Rate 99 05/05/24 13:25 Respiratory Rate 18 05/05/24 13:25 Blood Pressure 152/67 H 05/05/24 13:25 Pulse Oximetry 90 05/05/24 13:25 Oxygen Delivery Nasal Cannula 05/05/24 13:25 Oxygen Flow Rate 2 05/05/24 13:25 Temperature 98.3 F 05/05/24 13:25 Pulse Rate 99 05/05/24 13:25 Respiratory Rate 18 05/05/24 13:25 Blood Pressure 152/67 H 05/05/24 13:25 Pulse Oximetry 90 05/05/24 13:25 Oxygen Delivery Nasal Cannula 05/05/24 13:25 Oxygen Flow Rate 2 05/05/24 13:25 Reviewed. MDM - URI/Sore Throat MDM Narrative Medical decision making narrative: Differential diagnosis considered: Beck virus, strep pharyngitis, allergic rhinitis, upper respiratory tract infection, sinusitis, rhinosinusitis, nasopharyngitis. viral pharyngitis, otitis media, otitis externa, pneumonia, bronchitis, viral cough syndrome, viral syndrome, and influenza. Exam findings show no acute concerns or changes; patient is non-toxic appearing and is in no distress. Patient is appropriate for outpatient treatment and follow-up. Lab Data Attestation: I reviewed the patient's lab results. Critical Care Time Critical Care Time Critical Care Time: No Discharge Plan Discharge Clinical Impression: Otitis media Patient Disposition: Home, Self-Care Condition: Stable Instructions: Antibiotic Form, Ear Infection (ED) Additional Instructions: Take antibiotics as directed. Recommend antihistamine such as Benadryl at night time and Zyrtec or Julieth during the day until symptoms improve Flonase nasal spray, 2 sprays in each nostril once daily until symptoms improve Also, recommend symptomatic treatment includes: rest, fluids, and increase humidity of the air at home. Recommend Acetaminophen as directed on the bottle to reduce fever, pain Please schedule a follow-up visit with your personal physician for further evaluation and treatment within 3-5days. If your symptoms persist, change or worsen significantly before you can contact your personal physician then please, without delay, go to the emergency department for further evaluation. Patient Language: Vietnamese Prescriptions: New levofloxacin 750 mg tablet 750 mg PO DAILY 5 Days Qty: 5 0RF methylprednisolone [Medrol (Alfredo)] 4 mg tablets,dose pack See Rx Instructions .ROUTE .COMPLEX Qty: 21 0RF Rx Instructions: orally per package directions No Action vitamin B complex [B Complex-Vitamin B12] Tablet 1 tablet PO DAILY cholecalciferol (vitamin D3) 125 mcg (5,000 unit) capsule 125 mcg PO DAILY celecoxib 200 mg capsule 200 mg PO DAILY rosuvastatin 10 mg tablet 10 mg PO DAILY Qty: 90 1RF albuterol sulfate 90 mcg/actuation HFA aerosol inhaler See Rx Instructions .ROUTE .COMPLEX Qty: 8.5 1RF Dose Instruction: INHALE 1 TO 2 PUFFS BY MOUTH EVERY 4 TO 6 HOURS NEEDED FOR SHORTNESS OF BREATH OR WHEEZING Rx Instructions: INHALE 1 TO 2 PUFFS BY MOUTH EVERY 4 TO 6 HOURS NEEDED FOR SHORTNESS OF BREATH OR WHEEZING diltiazem HCl [Cardizem CD] 120 mg capsule,extended release 24hr 120 mg PO DAILY Qty: 90 1RF pantoprazole 40 mg tablet,delayed release (DR/EC) 40 mg PO QAM Qty: 90 1RF Follow-up/Referrals: Jason Gastelum MD [Primary Care Provider] - Time of Disposition: 13:52
[2024-05-05 13:25] VITALS: BP 152/67; PULSE 99; RESP 18; TEMP 36.8; O2SAT 90
[2024-05-05 13:45] VITALS: PULSE 84; RESP 20; O2SAT 97
== END 2024-05-05 14:00 | disposition home or self-care (01) ==
PROVIDERS: Emergency Provider Nurse Practitioner; PCP Family Medicine
DX: H66.92 Otitis media, unspecified, left ear (principal); I10 Essential (primary) hypertension; J84.9 Interstitial pulmonary disease, unspecified; E78.5 Hyperlipidemia, unspecified; M19.90 Unspecified osteoarthritis, unspecified site; E53.8 Deficiency of other specified B group vitamins; Z96.651 Presence of right artificial knee joint
CPT/HCPCS: 99213; G0463

== ENCOUNTER 2024-06-26 18:38 | Emergency (ER) | payer MEDICARE, BC, OTHER, SELFPAY ==
--- NOTE | 2024-06-26 18:54 | ED.GENADULT ---
HPI - General Adult General Chief complaint: Upper Respiratory Infection Stated complaint: Weakness/Nausea/Ears Source: patient Mode of arrival: ambulatory Limitations: no limitations History of Present Illness HPI narrative: 83 y/o female with hx interstitial lung disease on 2 L NC presented for c/o weakness, nausea, cough and shortness of breath increased from baseline. onset yesterday. States O2 baseline is 94% on 2L. Pt is accompanied by daughter who says she called the ambulance today but they said no. Pt states her BP and O2 level have been normal for her today. Took Tylenol. Denies chest pain, palpitations, vomiting, dizziness. pt also reports bilateral ear pressure; she was treated with abx for otitis media 05/05/24. Related Data Home Medications ?Medication ?Instructions ?Recorded ?Confirmed ?Last Taken ?Type vitamin B complex (B 1 tablet PO DAILY 04/05/20 05/28/24 Unknown History Complex-Vitamin B12 tablet) celecoxib 200 mg capsule 200 mg PO DAILY 12/08/23 05/28/24 Unknown History cholecalciferol (vitamin D3) 125 125 mcg PO DAILY 12/08/23 05/28/24 Unknown History mcg (5,000 unit) capsule Allergies Allergy/AdvReac Type Severity Reaction Status Date / Time Cephalosporins Allergy Intermediate Hives Verified 06/26/24 19:07 Penicillins Allergy Intermediate Hives Verified 06/26/24 19:07 cefpodoxime AdvReac Intermediate C diff Verified 06/26/24 19:07 Review of Systems Review of Systems: CONSTITUTIONAL: Denies body aches, fever, chills, or sweats. EYES: Denies visual changes, redness, or discharge. ENT: Denies rhinorrhea, congestion, sore throat, reports otalgia. CARDIOVASCULAR: Denies chest pain, palpitations, or edema. RESPIRATORY: Reports cough, sob, denies wheezing. GASTROINTESTINAL: Denies abdominal pain, vomiting, or diarrhea. reports nausea GENITOURINARY: Denies dysuria or hematuria. NEUROLOGIC: Denies headache, numbness, tingling, or weakness. All systems reviewed & are unremarkable except as noted in HPI and below PMFSH Past Medical History Medical History Osteopenia Arthritis Essential (primary) hypertension History of Clostridium difficile infection Dyslipidemia Unspecified osteoarthritis, unspecified site Hx of gastric ulcer Chronic interstitial lung disease Hx of small bowel obstruction Vitamin B12 deficiency Recurrent herpes labialis Surgical History Surgical History History of sinus surgery 1995 History of cholecystectomy 1970 History of right knee joint replacement 07/2019 Family History Family History Father Family history of Parkinson's disease, Onset Age: 85 Sibling Family history of type 1 diabetes mellitus, Onset Age: 36 Other Diabetes mellitus Family history of arthritis Social History Social History Social History: Sylvia is , 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 Smoking status: Never smoker Second hand tobacco smoke exposure: No Alcohol intake: current Drinks per week: 3 Alcohol use details: 1 glass of wine consumed occasionally Substance use: never Substance use type: does not use Lack of Transportation: No Lack of Food: Never True Current Housing: I Have Housing Concerned About Future Housing: No Difficulty Paying Gas/Electric Bills: No Difficulty Paying for Meds: No Currently Unemployed: No Difficulty w/ Childcare or Family Care: No Gender identity (if verbalized by the patient): Female Spiritual care concerns: No Comments At time of signature, I have reviewed and agree with nursing past medical, surgical, social and family history unless otherwise noted. Please see nursing chart for further information. There is no relevant family history pertinent to the presenting complaint Exam Narrative: GENERAL: chronically ill-appearing, in no acute distress. EYES: EOMI. No redness or drainage. Conjunctivae normal. ENT: Mucous membranes pink and moist. rhinorrhea. TMs normal light reflex bilaterally. Throat normal. Uvula midline. NECK: Normal AROM. Supple. CHEST: No respiratory distress. tachypnea, crackles to all glez. Frequent moist cough. O2 2L per NC. HEART: Regular rate and rhythm. No murmur appreciated. ABD: soft, nontender. frequent dry heaves. SKIN: Warm, dry, Capillary refill normal. Normal skin turgor. NEURO: Alert and oriented x3. Gait steady. PSYCH: Normal affect. Course Course Emergency Course: Patient is aware of diagnosis, understands and agrees to treatment plan. Anticipatory guidance given. Patient agrees to follow-up as directed and is aware of reasons to seek care at the emergency department. Portions of this record may have been created with voice recognition software Level of Care: Express Care Visit Vital Signs Vital signs: Vital Signs Temperature 98.3 F 06/26/24 18:58 Pulse Rate 96 06/26/24 18:58 Respiratory Rate 30 H 06/26/24 18:58 Blood Pressure 117/66 06/26/24 18:58 Pulse Oximetry 92 06/26/24 18:58 Oxygen Delivery Nasal Cannula 06/26/24 18:58 Oxygen Flow Rate 2 06/26/24 18:58 Temperature 98.3 F 06/26/24 18:58 Pulse Rate 96 06/26/24 18:58 Respiratory Rate 30 H 06/26/24 18:58 Blood Pressure 117/66 06/26/24 18:58 Pulse Oximetry 92 06/26/24 18:58 Oxygen Delivery Nasal Cannula 06/26/24 18:58 Oxygen Flow Rate 2 06/26/24 18:58 Medical Decision Making MDM Narrative Medical decision making narrative: Negative flu and COVID. O2 sat 92-94% on 2L. States baseline is 94% Zofran given for dry heaves. EKG reviewed with pt and daughter. Imaging is not available at this facility today. Advised ER transfer for further evaluation of shortness of breath, nausea and weakness. Pt refuses, says can't you just give me an antibiotic. Discussed possible etiologies of pt's symptoms at length including the possibility of cardiac etiology. Pt states she wants to go home and rest. daughter in room. The patient is AA&Ox3. The patient has demonstrated concrete thinking/reasoning, has maintained an interlocking and signal mechanic/reasonable conversation, appears to have intact insight/judgment/reason and therefore has capacity to make decisions. Given the patients presentation, we communicated our concern for Shortness of breath, weakness, nausea in laymans terms. The patient verbalized an understanding. The patient is aware the evaluation is incomplete & many troublesome conditions have not been r/o. We have discussed the need for further ED evaluation. We have discussed the range of possible dx, potential testing & treatment options. Our discussions included the potential outcomes of leaving AMA, including worsening of their condition, becoming permanently disabled/in pain/critically ill, or . Despite these efforts, we were unable to convince the pt to go to the ER. The patient is refusing any further care and is leaving against medical advice. We have attempted to offer tx/rx/guidance for any dangerous conditions which are most likely and/or dangerous. We have answered all questions and have implored the patient to go to ER PAU to complete the w/u. A staff member witnessed the patient consenting to AMA. Differential Diagnosis Differential Diagnosis: Angioedema, perforation, asthma, pneumonia, PE, tension pneumothorax, cardiac tamponade CA, pericarditis, pleural effusion, CHF, bronchitis, cardiac arrhythmia Vital Signs Vital Signs: Vital Signs Temperature 98.3 F 06/26/24 18:58 Pulse Rate 96 06/26/24 18:58 Respiratory Rate 30 H 06/26/24 18:58 Blood Pressure 117/66 06/26/24 18:58 Pulse Oximetry 92 06/26/24 18:58 Oxygen Delivery Nasal Cannula 06/26/24 18:58 Oxygen Flow Rate 2 06/26/24 18:58 Temperature 98.3 F 06/26/24 18:58 Pulse Rate 96 06/26/24 18:58 Respiratory Rate 30 H 06/26/24 18:58 Blood Pressure 117/66 06/26/24 18:58 Pulse Oximetry 92 06/26/24 18:58 Oxygen Delivery Nasal Cannula 06/26/24 18:58 Oxygen Flow Rate 2 06/26/24 18:58 Lab Data Labs: Lab Results 06/26/24 Range/Units 19:33 POC Influenza A Ag Negative (Negative) POC Influenza B Ag Negative (Negative) POC SARS CoV-2 Ag Negative (Negative) ECG Data EKG #1: Attestation: I personally reviewed and interpreted this ECG as follows: (NSR 85 NJ 158, QRS 73, QT/ QTC 356/398 possible left atrial enlargement, possible anterior CA probably old) ECG completion date: 06/26/24 ECG completion time: 19:33 Prior ECG tracings: available for review Discharge Plan Discharge Clinical Impression: Increasing shortness of breath Patient Disposition: Left Against Medical Advice Condition: Stable Patient Language: Khmer Prescriptions: No Action vitamin B complex [B Complex-Vitamin B12] Tablet 1 tablet PO DAILY cholecalciferol (vitamin D3) 125 mcg (5,000 unit) capsule 125 mcg PO DAILY celecoxib 200 mg capsule 200 mg PO DAILY rosuvastatin 10 mg tablet 10 mg PO DAILY Qty: 90 1RF albuterol sulfate 90 mcg/actuation HFA aerosol inhaler See Rx Instructions .ROUTE .COMPLEX Qty: 8.5 1RF Dose Instruction: INHALE 1 TO 2 PUFFS BY MOUTH EVERY 4 TO 6 HOURS NEEDED FOR SHORTNESS OF BREATH OR WHEEZING Rx Instructions: INHALE 1 TO 2 PUFFS BY MOUTH EVERY 4 TO 6 HOURS NEEDED FOR SHORTNESS OF BREATH OR WHEEZING pantoprazole 40 mg tablet,delayed release (DR/EC) 40 mg PO QAM Qty: 90 1RF diltiazem HCl [Cardizem CD] 120 mg capsule,extended release 24hr 120 mg PO DAILY Qty: 90 1RF Follow-up/Referrals: Jason Gastelum MD [Primary Care Provider] - Time of Disposition: 19:54
[2024-06-26 18:58] VITALS: BP 117/66; PULSE 96; RESP 30; TEMP 36.8; O2SAT 92
--- NOTE | 2024-06-26 19:15 | ECG_ITS ---
Test Date: 2024-06-26 19:33:35 Measurements Intervals [place] Rate: 85 P: 34 TN: 158 QRS: -26 QRSD: 73 T: 30 QT: 356 QTc: 424 Interpretive Statements SINUS RHYTHM POSSIBLE LEFT ATRIAL ENLARGEMENT POOR R WAVE PROGRESSION ,CONSIDER ANTERIOR INFARCT BASELINE ARTIFACT- I, II, III, AVR, AVL, AVF, V1-V6 ABNORMAL ECG No previous ECG available for comparison Electronically Signed On 06-27-2024 08:07:38 [employer]NAGER by Felton Elmore D.O.
[2024-06-26] MEDS: ONDANSETRON HCL ODT 4 MG TABLET SUBLINGUAL (19:23)
[2024-06-26 19:33] VITALS: PULSE 85; RESP 26; O2SAT 92
[2024-06-26 19:38] LABS: EDCOVIDSCREEN Negative (Negative); EDINFLUASCREEN Negative (Negative); EDINFLUBSCREEN Negative (Negative)
== END 2024-06-26 19:55 | disposition left against medical advice (07) ==
PROVIDERS: Emergency Provider Nurse Practitioner Family; PCP Family Medicine
DX: R06.02 Shortness of breath (principal); Z20.822 Contact with and (suspected) exposure to COVID-19; R94.31 Abnormal electrocardiogram [ECG] [EKG]; J84.9 Interstitial pulmonary disease, unspecified; Z99.81 Dependence on supplemental oxygen; I10 Essential (primary) hypertension; E78.5 Hyperlipidemia, unspecified; E53.8 Deficiency of other specified B group vitamins; M19.90 Unspecified osteoarthritis, unspecified site; Z86.19 Personal history of other infectious and parasitic diseases; Z96.651 Presence of right artificial knee joint
CPT/HCPCS: 87426; 87804; 93005; 99213; A9270; G0463

== ENCOUNTER 2024-06-26 20:08 | Emergency (ER) | payer MEDICARE, BC, OTHER, SELFPAY ==
--- NOTE | ~2024-06-26 | XR_ITS ---
EXAMINATION: XR chest 2V Exam Date/Time: 06/26/2024 20:55 FARROWING WORKER HISTORY: cp/sob Comparison: 05/28/2023. RESULT: Lines, tubes, and devices: None. Lungs and pleura: Low volumes with crowding. Segmental probably lingular airspace disease. Senescent /interstitial changes. No pleural effusion or pneumothorax. Cardiomediastinal silhouette: Stable. Other: No acute osseous or upper abdominal finding. IMPRESSION: Segmental, probably lingular airspace disease may represent atelectasis or pneumonia. Reviewed, dictated and finalized at location K. OWING WORKER IMPRESSION: Segmental, probably lingular airspace disease may represent atelectasis or pneu monia.
--- OUTSIDE RECORDS SUMMARY | 2024-06-26 20:10 | XMS_ITS | Referral Summary ---
Author Organization [facility] Address [address] [facility] [place] [address] Care Team Providers Care Rental Agent Name Role Phone Porfirio Tai MD Unavailable Tay Gastelum MD Primary Care Provider Oni Womack MD Unavailable [phone] Source Comments [facility],non-[facility] Affiliates and Associated Physician Practices is amultiple site organization consisting of ambulatory clinics and hospital sitesin [place], [place], [place] and [place]. This disclosure is being madepursuant to the Care Everywhere program and may not contain all information available regarding this patient. Last updated 18.[facility] Encounters Date Type Department Care Team Description 04/19/2024 2:30 PM TEST CLERK - 04/19/2024 11:59 PM TEST CLERK Hospital Encounter [facility] Care [address] [place] [id number] Oni Womack MD Discharge Disposition: Home or Self Care 04/19/2024 2:28 PM TEST CLERK - 04/19/2024 2:29 PM TEST CLERK Hospital Encounter [facility] Care [address] [place], [place] [id number] Oni Womack MD Discharge Disposition: Home or Self Care 04/19/2024 2:30 PM TEST CLERK Office Visit [facility] Care [id number] [place] [phone] Oni Womack MD Spinal stenosis of lumbar region, unspecified whether neurogenic claudication present (Primary Dx); HNP (herniated nucleus pulposus), lumbar; Lumbosacral radiculitis; Gait difficulty 04/07/2024 Telephone [facility] [address] [facility] [address] [facility] [place] [phone] Oni Womack MD Question 04/06/2024 Telephone [facility] [address] [facility] [address] [facility] [place] [phone] Oni Womack MD Patient Requested Call; Results 04/05/2024 2:56 PM TEST CLERK - 04/05/2024 11:59 PM TEST CLERK Hospital Encounter [facility] Imaging Services - MRI [address] [facility] [address] [place] [address] Oni Womack MD Discharge Disposition: Home or Self Care 03/30/2024 2:50 PM TEST CLERK Office Visit [facility] [address] [facility] [address] [facility] [place] [phone] Oni Womack MD Gait difficulty (Primary Dx); Spinal stenosis of lumbar region, unspecified whether neurogenic claudication present; HNP (herniated nucleus pulposus), lumbar; Lumbosacral radiculitis; Myofascial pain from Last 3 Months Allergies Active Allergy Reactions Criticality Noted Date Comments Penicillins 10/03/2014 Cefpodoxime 10/03/2014 Medications * Be aware that medications may not be up to date on this document. Alwaysverify current medications with the patient. Medication Sig Dispensed Refills Start Date End Date Status pantoprazole EC (PROTONIX) 40 MG tablet Take 1 (one) tablet by mouth 2 times daily 3 09/08/2014 Active rosuvastatin (CRESTOR) 10 MG tablet Take 1 (one) tablet by mouth at bedtime 1 09/03/2017 Active vitamin D3 (D3-1000) (25 MCG) 1000 UNIT capsule Take 1 (one) capsule by mouth once daily Active Other Stool softener--drug unknown, 2 times per day oral. Active albuterol HFA (PROVENTIL;VENTOLI N;PROAIR) 108 (90 Base) MCG/ACT inhaler INHALE 1 PUFF BY MOUTH EVERY 4 HOURS NEEDED FOR SHORTNESS OF BREATH OR WHEEZING 08/03/2020 Active valACYclovir (VALTREX) 1 GM tablet TAKE 2 TABLETS BY MOUTH EVERY 12 HOURS FOR 1 DAY WITH RECURRENCE OF COLD SORES 08/21/2020 Active metoprolol succinate XL 24hr (Toprol XL) 50 MG tablet Take 1 (one) tablet by mouth once daily 12/19/2021 Active celecoxib (CeleBREX) 200 MG capsuleIndications :Acute pain of right knee Take 1 (one) capsule by mouth 2 times daily 180 capsule 3 12/24/2022 Active dilTIAZem ER 24hr (Tiazac) 120 MG capsule Take 1 (one) capsule by mouth once daily Active Active Problems Problem Noted Date Diagnosed Date Presence of right artificial knee joint 12/16/19 20 Primary osteoarthritis of left knee 12/16/2019 Postmenopausal atrophic vaginitis 06/08/2019 Stricture and stenosis of cervix 06/08/2019 Primary osteoarthritis of both knees 07/04/2017 Primary osteoarthritis of right knee 06/08/2015 Social History Tobacco Use Types Packs/Day Years Used Date Smoking Tobacco: Never Smokeless Tobacco: Never Alcohol Use Standard Drinks/Week Comments Yes 0 (1 standard drink = 0.6 oz pur e alcohol) weekly PHQ-2 Answer Date Recorded Patient Health Questionnaire-2 Score 0 04/12/2024 Sex and Gender Information Value Date Recorded Sex Assigned at Not on file Gender Identity Not on file Sexual Orientation Not on file Last Filed Vital Signs Vital Sign Reading Time Taken Comments Blood Pressure 138/67 04/19/2024 3:13 PM TEST CLERK Pulse 109 04/19/2024 3:13 PM TEST CLERK Temperature 36.7 ??C (98.1 ??F) 08/14/2019 7:35 AM CD T Respiratory Rate 16 04/19/2024 3:13 PM TEST CLERK Oxygen Saturation 94% 04/19/2024 3:13 PM TEST CLERK Inhaled Oxygen Concentration - - Weight 85.3 kg (188 lb) 03/30/2024 1:38 PM TEST CLERK Height 165.1 cm (5' 5 ) 03/30/2024 1:38 PM TEST CLERK Body Mass Index 31.28 03/30/2024 1:38 PM TEST CLERK Functional Status Functional Status Response Date of Assess ment Is person deaf or have serious hearing difficult y? No 08/12/2019 Is person blind or have serious difficulty seein g? No 08/12/2019 Does person have serious dif ficulty walking/climbing stairs? No 08/12/2019 Does person have difficulty dressing/bathing? No 08/12/2019 Does person have difficulty doing errands alone? No 08/12/2019 Cognitive Status Response Date of Assessm ent Does person have difficulty concentrating/remembering/making decisions? No 08/12/2019 Plan of Treatment Not on file Medical Devices Implanted Type Area Media Clerk Device Identifier Shelf Expiration Date Model / Serial / Lot Juan Bone Dixon-G Hv 40/20 Implanted:Qty: 1 on 08/12/2019 by Porfirio Tai MD at [facility] Right: Knee [employer] 01/04/2021 [id number] / / [id number] Cmpnt Fem Kn Rt Cr Cmnt Prm Vngrd Intlk Implanted:Qty: 1 on 08/12/2019 by Porfirio Tai MD at [facility] Right: Knee [employer] 04/30/2029 [id number] / / [id number] Cmpnt Ptlr 28mm 1 Pg Wire Ascnt Arcm Kn Implanted:Qty: 1 on 08/12/2019 by Porfirio Tai MD at [facility] Right: Knee [employer] 06/30/2024 [id number] / / [id number] Tray Tib 75mm Kn Cocr I Beam Implanted:Qty: 1 on 08/12/2019 by Porfirio Tai MD at [facility] Right: Knee [employer] 07/06/2029 [id number] / / [id number] Brng [id number] Vngrd Arcm Kn Ant Stab Implanted:Qty: 1 on 08/12/2019 by Porfirio Tai MD at [facility] Right: Knee [employer] 12/14/2022 [id number] / / [id number] Procedures Procedure Name Priority Date/Time Associated Diagnosis Comments PAIN MANAGEMENT PROCEDURE TIME Routine 04/19/2024 3:13 PM TEST CLERK Disorder of sacrum MRI LUMBAR SPINE WO CONTRAST Routine 04/05/2024 4:25 PM TEST CLERK Gait difficulty Spinal stenosis of lumbar region, unspecified whether neurogenic claudication present HNP (herniated nucleus pulposus), lumbar Lumbosacral radiculitis from Last 3 Months Results * PAIN MANAGEMENT PROCEDURE TIME (04/19/2024 3:13 PM TEST CLERK) Anatomical Region Laterality Modality X-Ray Angiograph y Narrative 04/19/2024 5:11 PM TEST CLERK Oni Womack MD ? 04/19/2024 ??5:13 PM Transforaminal Right L5 ,S1 Selective Nerve Root Injection Sylvia Sullivan [id number] 04/19/2024 Allergies Allergen Reactions Pcn [Penicillins] ?? Vantin [Cefpodoxime] ?? Procedure: Transforaminal Right L5,S1 ??Selective Nerve Root Steroid ??Injection Under Fluoroscopy Indication for Procedure: Radicular pain in the lower extremity/Lumbar ??stenosis/Lumbar HNP/Lumbar foraminal stenosis. ?? M54.16 Informed Consent: After the patient, Sylvia Sullivan, was informed of the risks and benefits of the procedure and all questions were answered, the consent was signed. Prep:Patient identified, proper procedure and site verified, marked by Dr. Luz. ??In the prone position,right L5 pedicle, and transverse process,S1 foramen ??were ??identified under fluoroscopy and ??marked on the patient's skin. The skin was prepped in a routine sterile fashion using chloroprep. Responsible electric pile driver operator not needed as the patient is not having sedation. Under fluoroscopy, a 25 gauge, 3 1/2 inch spinal needle was slowly inserted towards the right L5 foramen after 1 % lidocaine MPF was used to anesthetize the skin , subcutaneous tissue and the muscle overlying the area.Once the tip of the needle was in proper position, 0.5ml of Isovue-M 200 was slowly injected to outline the selective nerve root pattern. Symptoms were reproduced in the nerve root distribution. 0.5 ml of Dexamethasone 10 mg per ml ??and 3.0 ml of normal saline (preservative free) were injected in a slow, incremental fashion after aspiration revealed no blood or CSF return. The needle was removed, the skin was cleaned, and ensured no bleeding was noted. Under fluoroscopy, a 25 gauge, 3 1/2 inch spinal needle was slowly inserted towards the right S1 foramen after 1 % lidocaine MPF was used to anesthetize the skin , subcutaneous tissue and the muscle overlying the area.Once the tip of the needle was in proper position, 0.5ml of Isovue-M 200 was slowly injected to outline the selective nerve root pattern. Symptoms were reproduced in the nerve root distribution. 0.5 ml of Dexamethasone 10 mg per ml ??and 3.0 ml of normal saline (preservative free) were injected in a slow, incremental fashion after aspiration revealed no blood or CSF return. The needle was removed, the skin was cleaned, and ensured no bleeding was noted. Total Lidocaine : 4ml Total Dexamethasone :10mg Total Isovue-M 200 : 1ml, 9.0 ml wasted The patient tolerated the procedure well without complications. The patient was taken to the recovery area and remained stable without complications. Vital signs stable. Injection site clean, dry, and intact. Post procedure instructions were given to the patient and follow up appointment was confirmed. The patient was discharged with information on how to reach the clinic at any time for questions or concerns. Patient ambulatory, denies complaints, DC to home. Patient survey given. Procedure codes: 21667,08088 Pre VAS 01/02 Post VAS 01/02 Oni Womack MD Oni Womack MD DIAGNOSTIC IMAGING O RDERABLES * MRI Lumbar Spine Wo Contrast (04/05/2024 4:25 PM TEST CLERK) Anatomical Region Laterality Modality Spine Magnetic Resonan ce 04/05/2024 4:56 PM TEST CLERK Impressions 04/06/2024 12:40 PM TEST CLERK IMPRESSION: MODERATE TO SEVERE RIGHT AND MODERATE LEFT FORAMINAL STENOSIS AT L5-S1. MODERATE CANAL AND BILATERAL LATERAL RECESS STENOSIS AT L4-L5. 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 ADDITIONAL MULTILEVEL SPONDYLITIC DISEASE DISCUSSED ABOVE. Edited by Ebony Zavala on 04/06/2024 8:19 AM > Interpreting Provider: Shani Myles MD on 04/06/2024 12:40 PM Narrative 04/06/2024 12:40 PM TEST CLERK PROCEDURE: ??MRI LUMBAR SPINE WO CONTRAST DATE/TIME OF EXAM: ??04/05/2024 4:54 PM CLINICAL INFORMATION: None relevant/not provided if blank. Indication: R26.9: Unspecified abnormalities of gait and mobility M48.061: Spinal stenosis, lumbar region without neurogenic claudication. M51.26: Other intervertebral disc displacement, lumbar region M54.17: Radiculopathy, lumbosacral region. Chronic worsening low back pain and lumbosacral neuritis. COMPARISON: Lumbar spine x-ray series 02/23/2024. TECHNIQUE: Lumbar spine MRI was performed without contrast. FINDINGS: Stable grade 2 anterolisthesis of L4 on L5. Vertebral body height within normal limits. Mild chronic Modic endplate marrow edema at L5-S1. Conus medullaris terminates at T12-L1. No acute paraspinal soft tissue abnormality. L1-L2: Mild disc bulge greater towards the left. Mild bilateral lateral recess stenosis. No canal or foraminal stenosis. L2-L3: Broad-based disc bulge. Mild bilateral facet hypertrophy. Mild to moderate thickening of the ligamentum flavum. Mild bilateral lateral recess stenosis. No canal or foraminal stenosis. L3-L4: Broad-based disc bulge. Mild right facet hypertrophy. Mild to moderate thickening ligamentum flavum. No canal, lateral recess, or foraminal stenosis. L4-L5: Moderate to severe bilateral facet hypertrophy. Grade 2 anterolisthesis of L4 on L5. Mild disc bulge. Moderate bilateral lateral recess stenosis. Moderate canal stenosis. Mild to moderate bilateral foraminal stenosis. L5-S1: Broad disc bulges with extension into the bilateral neural foramina. Moderate bilateral facet hypertrophy. Moderate to severe right and moderate left foraminal stenosis. No canal or lateral recess stenosis. Procedure Note Shani Myles MD - 04/06/2024 PROCEDURE: MRI LUMBAR SPINE WO CONTRAST DATE/TIME OF EXAM: 04/05/2024 4:54 PM CLINICAL INFORMATION: None relevant/not provided if blank. Indication: R26.9: Unspecified abnormalities of gait and mobility M48.061: Spinal stenosis, lumbar region without neurogenic claudication. M51.26: Other intervertebral disc displacement, lumbar region M54.17: Radiculopathy, lumbosacral region. Chronic worsening low back pain and lumbosacral neuritis. COMPARISON: Lumbar spine x-ray series 02/23/2024. TECHNIQUE: Lumbar spine MRI was performed without contrast. FINDINGS: Stable grade 2 anterolisthesis of L4 on L5. Vertebral body height within normal limits. Mild chronic Modic endplate marrow edema at L5-S1. Conus medullaris terminates at T12-L1. No acute paraspinal soft tissue abnormality. L1-L2: Mild disc bulge greater towards the left. Mild bilateral lateral recess stenosis. No canal or foraminal stenosis. L2-L3: Broad-based disc bulge. Mild bilateral facet hypertrophy. Mild to moderate thickening of the ligamentum flavum. Mild bilateral lateralrecess stenosis. No canal or foraminal stenosis. L3-L4: Broad-based disc bulge. Mild right facet hypertrophy. Mild to moderate thickening ligamentum flavum. No canal, lateral recess, or foraminal stenosis. L4-L5: Moderate to severe bilateral facet hypertrophy. Grade 2 anterolisthesis of L4 on L5. Mild disc bulge. Moderate bilateral lateral recess stenosis. Moderate canal stenosis. Mild to moderate bilateral foraminal stenosis. L5-S1: Broad disc bulges with extension into the bilateral neuralforamina. Moderate bilateral facet hypertrophy. Moderate to severe right andmoderate left foraminal stenosis. No canal or lateral recess stenosis. IMPRESSION: MODERATE TO SEVERE RIGHT AND MODERATE LEFT FORAMINAL STENOSIS AT L5-S1. MODERATE CANAL AND BILATERAL LATERAL RECESS STENOSIS AT L4-L5. 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 ADDITIONAL MULTILEVEL SPONDYLITIC DISEASE DISCUSSED ABOVE. Edited by Ebony Zavala on 04/06/2024 8:19 AM > Interpreting Provider: Shani Myles MD on 04/06/2024 12:40 PM Oni Womack MD MR ORDERABLES from Last 3 Months Administered Medications Advance Directives * Full Code (Latest Code Status on File) Date Activated Date Inactivated Comments 08/12/2019 11:04 AM 08/14/2019 2:07 PM Care Teams Rental Agent Relationship Specialty Start Date End Date Tay Gastelum MD [address] [place] [phone] PCP - General Family Medicine 04/06/18 [place] [address] [place] [address] Orthopedic Surgery 10/03/14 [place] [id number] [address] [place] [address] Physical Medicine and Rehabilitation 02/23/24
--- OUTSIDE RECORDS SUMMARY | 2024-06-26 20:10 | XMS_ITS | Patient Health Summary ---
Author Organization [facility] Address [address] [place] [address] Care Team Providers Care Laborer Heading Name Role Phone Porfirio Tai MD Unavailable [phone] Tay Gastelum MD Primary Care Provider Oni Womack MD Unavailable [phone] Note from [facility],non-owned Affiliates and Associated Physician Practices is amultiple site organization consisting of ambulatory clinics and hospital sitesin [place], [place]. This disclosure is being madepursuant to the Care Everywhere program and may not contain all information available regarding this patient. Last updated 18.[facility] Allergies * Penicillins * Cefpodoxime Medications * Be aware that medications may not be up to date on this document. Alwaysverify current medications with the patient. * pantoprazole EC (PROTONIX) 40 MG tablet(Started 09/08/2014) Take 1 (one) tablet by mouth 2 times daily 3 refills left * rosuvastatin (CRESTOR) 10 MG tablet(Started 09/03/2017) Take 1 (one) tablet by mouth at bedtime 1 refill left * vitamin D3 (D3-1000) (25 MCG) 1000 UNIT capsule Take 1 (one) capsule by mouth once daily * Other Stool softener--drug unknown, 2 times per day oral. * albuterol HFA (PROVENTIL;VENTOLIN;PROAIR) 108 (90 Base) MCG/ACT inhaler (Started 08/03/2020) INHALE 1 PUFF BY MOUTH EVERY 4 HOURS NEEDED FOR SHORTNESS OF BREATH OR WHEEZING * valACYclovir (VALTREX) 1 GM tablet(Started 08/21/2020) TAKE 2 TABLETS BY MOUTH EVERY 12 HOURS FOR 1 DAY WITH RECURRENCE OF COLD SORES * metoprolol succinate XL 24hr (Toprol XL) 50 MG tablet(Started 12/19/2021) Take 1 (one) tablet by mouth once daily * celecoxib (CeleBREX) 200 MG capsule(Started 12/24/2022) Take 1 (one) capsule by mouth 2 times daily 3 refills by 12/24/2023 * dilTIAZem ER 24hr (Tiazac) 120 MG capsule Take 1 (one) capsule by mouth once daily Active Problems Problem Noted Date Diagnosed Date Presence of right artificial knee joint 12/16/19 Primary osteoarthritis of left knee 12/16/2019 Postmenopausal [...] Comments Blood Pressure 138/67 04/19/2024 3:13 PM MEAT CARRIER Pulse 109 04/19/2024 3:13 PM MEAT CARRIER Temperature 36.7 ??C (98.1 ??F) 08/14/2019 7:35 AM CD T Respiratory Rate 16 04/19/2024 3:13 PM MEAT CARRIER Oxygen Saturation 94% 04/19/2024 3:13 PM MEAT CARRIER Inhaled Oxygen Concentration - - Weight 85.3 kg (188 lb) 03/30/2024 1:38 PM MEAT CARRIER Height 165.1 cm (5' 5 ) 03/30/2024 1:38 PM MEAT CARRIER Body Mass Index 31.28 03/30/2024 1:38 PM MEAT CARRIER Medical Devices Implanted Type Area Carbon Brushes Assembler Device Identifier Shelf Expiration Date Model / Serial / Lot Juan Bone Byers-G Hv 40/ Implanted:Qty: 1 on 08/12/2019 by Porfirio Tai MD at [facility] Right: Knee [employer] 01/04/2021 [id number] / / [id number] Cmpnt Fem Kn Rt Cr Cmnt Prm Vngrd Intlk Implanted:Qty: 1 on 08/12/2019 by Porfirio Tai MD at [facility] Right: Knee [employer] 04/30/2029 [id number] / / [id number] Cmpnt Ptlr 28mm 1 Pg Wire Ascnt Arcm Kn Implanted:Qty: 1 on 08/12/2019 by Porfirio Tai MD at [facility] Right: Knee [employer] 06/30/2024 [id number] / / [id number] Tray Tib 75mm Kn Cocr I Beam Implanted:Qty: 1 on 08/12/2019 by Porfirio Tai MD at [facility] Right: Knee [employer] 07/06/2029 [id number] / / [id number] Brng [id number] Vngrd Arcm Kn Ant Stab Implanted:Qty: 1 on 08/12/2019 by Porfirio Tai MD at [facility] Right: Knee [employer] 12/14/2022 [id number] / / [id number] Procedures * PAIN MANAGEMENT PROCEDURE TIME(Performed 04/19/2024) Performed for Disorder of sacrum * MRI LUMBAR SPINE WO CONTRAST(Performed 04/05/2024) Performed for Gait difficulty, Spinal stenosis of lumbar region, unspecified whether neurogenic claudication present, HNP (herniated nucleus pulposus), lumbar, Lumbosacral radiculitis * PAIN MANAGEMENT PROCEDURE TIME(Performed 03/08/2024) Performed for Disorder of sacrum * XR LUMBAR SPINE 4VW OR MORE(Performed 02/23/2024) Performed for Sacroiliac joint dysfunction of right side, Gait difficulty, Lumbar facet arthropathy, Spinal stenosis of lumbar region, unspecified whether neurogenic claudication present, Lumbar radiculitis, Lumbar foraminal stenosis * XR KNEE LEFT 3VW(Performed 02/23/2024) Performed for Primary osteoarthritis of left knee * XR KNEE BILAT 3VW(Performed 03/14/2022) Performed for Presence of right artificial knee joint, Primary osteoarthritis of left knee * XR KNEE RIGHT 3VW(Performed 04/25/2020) Performed for Presence of right artificial knee joint * XR KNEE RIGHT 3VW(Performed 09/14/2019) Performed for Acute pain of right knee * HGB HCT PANEL(Performed 08/14/2019) * HGB HCT PANEL(Performed 08/13/2019) * NEURAXIAL BLOCK(Performed 08/12/2019) * ARTHROPLASTY TOTAL KNEE(Performed 08/12/2019) * EKG 12-LEAD(Performed 07/12/2019) Performed for Preop examination * CULTURE MSSA/MRSA(Performed 07/12/2019) Performed for Preop examination * XR KNEE RIGHT 3VW(Performed 06/07/2019) Performed for Chronic pain of right knee * MRI KNEE RIGHT WO CONTRAST(Performed 06/03/2019) Performed for Acute pain of right knee * D-DIMER(Performed 03/30/2019) * COMPREHENSIVE METABOLIC PANEL(Performed 03/30/2019) * CBC W AUTO DIFFERENTIAL(Performed 03/30/2019) * XR KNEE RIGHT 4VW OR MORE(Performed 03/30/2019) Performed for Knee strain, right, initial encounter * XR KNEE BILAT 3VW(Performed 01/17/2017) Performed for Primary osteoarthritis of both knees * XR KNEE RIGHT 3VW(Performed 10/03/2014) Performed for Pain in joint, lower leg, right Results * PAIN MANAGEMENT PROCEDURE TIME (04/19/2024 3:13 PM MEAT CARRIER) Only the most recent of2 resultswithin the time period is included. Anatomical Region Laterality Modality X-Ray Angiograph y Narrative 04/19/2024 5:11 PM MEAT CARRIER Oni Womack MD ? 04/19/2024 ??5:13 PM Transforaminal Right L5 ,S1 Selective Nerve Root Injection Sylvia Sullivan [id number] 04/19/2024 Allergies Allergen Reactions Pcn [Penicillins] ?? [...] a routine sterile fashion using chloroprep. 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 Patient survey given. Procedure codes: 30297,05797 Pre VAS 01/02 Post VAS 01/02 Oni Womack MD Oni Womack MD DIAGNOSTIC IMAGING O RDERABLES * MRI Lumbar Spine Wo Contrast (04/05/2024 4:25 PM MEAT CARRIER) Anatomical Region Laterality Modality Spine Magnetic Resonan ce 04/05/2024 4:56 PM MEAT CARRIER Impressions 04/06/2024 12:40 PM MEAT CARRIER IMPRESSION: MODERATE TO SEVERE RIGHT AND MODERATE LEFT FORAMINAL STENOSIS AT L5-S1. MODERATE CANAL AND BILATERAL LATERAL RECESS STENOSIS AT L4-L5. 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 ADDITIONAL MULTILEVEL SPONDYLITIC DISEASE DISCUSSED ABOVE. Edited by Ebony Zavala on 04/06/2024 8:19 AM > Interpreting Provider: Shani Myles MD on 04/06/2024 12:40 PM Narrative 04/06/2024 12:40 PM MEAT CARRIER PROCEDURE: ??MRI LUMBAR SPINE WO CONTRAST DATE/TIME [...] 12:40 PM Oni Womack MD MR ORDERABLES * XR Lumbar Spine 4Vw or More (02/23/2024 11:37 AM CDT) Anatomical Region Laterality Modality Spine Computed Radiogr aphy 02/23/2024 11:4 8 AM CDT Impressions 02/23/2024 12:29 PM CDT IMPRESSION: Anterolisthesis of L4 on L5 and retrolisthesis of T12 on L1 with severe disc space narrowing at each of these levels. Edited by Christiane Tavares on 02/23/2024 11:55 AM > Interpreting Provider: Stefanie Verdugo MD on 02/23/2024 12:29 PM Narrative 02/23/2024 12:29 PM CDT PROCEDURE: ??XR LUMBAR SPINE 4VW OR MORE DATE/TIME OF EXAM: ??02/23/2024 11:38 AM CLINICAL INFORMATION: None relevant/not provided if blank. Indication: M53.3: Sacrococcygeal disorders, not elsewhere classified R26.9: Unspecified abnormalities of gait and mobility M47.816: Spondylosis without myelopathy or radiculopathy, lumbar region M48.061: Spinal stenosis, lumbar region without neurogenic claudication M54.16: Radiculopathy, lumbar region M48.061: Spinal stenosis, lumbar region without neurogenic claudication Additional History: COMPARISON: None. TECHNIQUE: 5 views of the lumbar spine are submitted. FINDINGS: There is a minimal dextroscoliosis of the lumbar spine. An anterolisthesis of L4 on L5 measured approximately 10 mm with severe disc space narrowing at L4-5. There is dqlnytaq-uy-wxtzoo disc space narrowing at L5-S1. Severe disc space narrowing is also present at T12-L1 with approximately a 3 mm retrolisthesis of T12 on L1. No compression deformity is seen. Procedure Note Stefanie Verdugo MD - 02/23/2024 PROCEDURE: XR LUMBAR SPINE 4VW OR MORE DATE/TIME OF EXAM: 02/23/2024 11:38 AM CLINICAL INFORMATION: None relevant/not provided if blank. Indication: M53.3: Sacrococcygeal disorders, not elsewhere classified R26.9: Unspecified abnormalities of gait and mobility M47.816: Spondylosis without myelopathy or radiculopathy, lumbar region M48.061: Spinal stenosis, lumbar region without neurogenic claudication M54.16: Radiculopathy, lumbar region M48.061: Spinal stenosis, lumbar region without neurogenic claudication Additional History: COMPARISON: None. TECHNIQUE: 5 views of the lumbar spine are submitted. FINDINGS: There is a minimal dextroscoliosis of the lumbar spine. Ananterolisthesis of L4 on L5 measured approximately 10 mm with severe disc spacenarrowing at L4-5. There is fdbipdzp-lz-lwevap disc space narrowing at L5-S1.Severe disc space narrowing is also present at T12-L1 with approximately a 3 mm retrolisthesis of T12 on L1. No compression deformity is seen. IMPRESSION: Anterolisthesis of L4 on L5 and retrolisthesis of T12 on L1 with severe disc space narrowing at each of these levels. Edited by Christiane Tavares on 02/23/2024 11:55 AM > Interpreting Provider: Stefanie Verdugo MD on 02/23/2024 12:29 PM Oni Womack MD DIAGNOSTIC IMAGING O RDERABLES * XR Knee Left 3Vw (02/23/2024 9:03 AM CDT) Narrative [facility] [address] - 02/23/2024 9:03 AM CDT Please see progress note in Epic for results. Blaine Hawkins APRN-CORRECTIONAL MAINTENANCE TECHNICIAN DIAGNOSTI C IMAGING ORDERABLES [facility] [address] * XR KNEE BILAT 3VW (03/14/2022 12:19 PM CDT) Only the most recent of2 resultswithin the time period is included. Anatomical Region Laterality Modality Lower Extremity Computed Radiogr aphy Narrative 03/14/2022 12:20 PM CDT Adele Posadas, RT(R) ? 03/22/2022 ??5:01 PM See progress notes for results Jose Luis Caceres PA-Dea DIAGNOSTIC IMAGING ORDERABLES * XR KNEE RIGHT 3VW (04/25/2020 10:01 AM MEAT CARRIER) Only the most recent of4 resultswithin the time period is included. Anatomical Region Laterality Modality Lower Extremity Computed Radiogr aphy Narrative 04/25/2020 10:05 AM MEAT CARRIER Adele Posadas RT(R) ? 05/08/2020 ??5:10 PM See progress notes for results Porfirio Tai MD DIAGNOSTIC IMAGING O RDERABLES * (ABNORMAL) HGB HCT PANEL (08/14/2019 2:19 AM CDT) Only the most recent of2 resultswithin the time period is included. Hemoglobin 10.5(L) 12.0 - 15.6 gm/dL 08/14/2019 2:54 AM CDT [facility] Hematocrit 33.0(L) 35.9 - 45.5 % 08/14/2019 2:54 AM CDT [facility] Blood BLOOD SPECIMEN / Unknown Venipuncture / Unknown 08/14/2019 2:19 AM CDT 08/14/2019 2:48 AM CDT Porfirio Tai MD LAB - HEMATOLOGY ORD ERABLES [facility] [address] [place] [address] * Neuraxial Block (08/12/2019 8:30 AM CDT) Narrative Roger Tafoya, CARPENTER ASSEMBLERPEDRO - 08/12/2019 8:30 AM CDT Roger Tafoya APRN-CRNA ? 08/12/2019 ??8:31 AM Neuraxial Block Note ?? Pre-Procedure: ?? Procedure Name: ??Neuraxial Block Patient Location: ??OR Indications: ??surgical anesthesia Pre-Anesthetic Checklist: ??Patient identified, IV Checked, Risks and benefits discussed, Surgical consent verified, Monitors and equipment, Site examined, Pre-op evaluation done, Informed consent obtained, Questions answered/anesthesia questions answered and Allergies reviewed Anticoagulation/ Anti-thrombosis status confirmed? ??Yes Supplemental O2: ??room air Monitors: ??BP and continuous pluse ox Patient Condition: ??sedated, meaningful contact maintained throughout procedure Patient Sedated? ??Nursing sedation administration ? Sedation Type: ??mild ? Sedation Agents (manual): ??versed ?? fentanyl mL Procedure: ?? Block Type: ??Spinal Prep: ??Betadine Sterile Field: ??mask, cap/hat, sterile established and sterile gloves Approach: ??midline Skin was localized? ??Nursing documentation on [facility] Skin localized with: ??Lidocaine 1% and 1 mL Spinal Block: ?? Needle Type: ??spinal needle Needle Gauge: ??22 Needle Length: ??90 mm Placement Site: ??L3-4 Number of Attempts: ??1 CSF: ??free flow, ?? aspiration before injection Local anesthetics used? ??Nursing documentation on the MAR Spinal Local Anesthetic: ? Bupivacaine: ??0.75% in dextrose 2 ??mL Degree of difficulty: ??none Procedure Tolerance: ??tolerated well ?? performed while the patient was sedated Sensory Level: ??T8 Motor Blockade: ??Yes Position post procedure: ??supine Vital Signs: ??Vital signs monitored and stable throughout. ??See anesthesia record for details. Start Time: ??08/12/2019 8:06 AM End Time: ??08/12/2019 8:14 AM Total Time: ??8 Staff: ?? Anesthesia Provider: ??Roger Tafoya APRN-CRNA ?? - ?? performed the procedure Luis Corona DO GENERAL ANESTHESIA O RDERABLES * EKG 12-LEAD (07/12/2019 3:36 PM MEAT CARRIER) Ventricular Rate 75 BPM [facility] Atrial Rate 75 BPM [facility] P-R Interval 136 ms [facility] QRS Duration ms 80 ms [facility] Q-T Interval ms 398 ms [facility] QTC Calculation (Bezet) 444 ms [facility] Calculated P [place] 37 degrees [facility] Calculated R [place] -27 degrees [facility] Calculated T [place] 50 degrees [facility] Interpretation EKG Normal sinus rhythm Possible Left atrial enlargement Borderline ECG When compared with ECG of 21-SEP-2008 11:55, No significant change was found Confirmed by LU CABALLERO MD ([id number]) on 07/13/2019 11:02:04 AM [facility] M[facility] 07/12/2019 3:36 PM MEAT CARRIER 07/13/2019 11:02 AM MEAT CARRIER Luis Corona DO ECG ORDERABLES Performing Organization Address City/[facility]/ZIP Co de Phone Number [facility] MUSE * CULTURE MSSA/MRSA (07/12/2019 3:32 PM MEAT CARRIER) Pathologist [facility] Culture Negative for Staphylococcus aureus (MRSA/MSSA) 07/14/2019 7:[address] [facility] MICROBIOLOGY Microbiology SPECIMEN FROM NASAL FOSSAE / Unknown Collection / Unknown 07/12/2019 3:32 PM MEAT CARRIER 07/12/2019 4:28 PM MEAT CARRIER Aurora Lopez CARPENTER ASSEMBLER-CORRECTIONAL MAINTENANCE TECHNICIAN LAB - MICR OBIOLOGY ORDERABLES Performing Organization Address City/[facility]/ZIP Co de Phone Number [facility] MICROBIOLOGY [address] [place], [place] [address] [phone] * MRI KNEE RIGHT WO CONTRAST (06/03/2019 10:13 AM MEAT CARRIER) Anatomical Region Laterality Modality Lower Extremity Magnetic Resonan ce 06/03/2019 11:5 0 AM MEAT CARRIER Impressions 06/03/2019 12:02 PM MEAT CARRIER Joint effusion with loose body adjacent to the lateral aspect of the patella as described above Tricompartmental degenerative changes as above Chronic degradation of the medial lateral menisci with superimposed tears of the posterior horn of the medial meniscus and anterior horn of the lateral meniscus Reading Radiologist: Luis Hatch MD on 06/03/2019 at 12:02 PM Narrative 06/03/2019 12:02 PM MEAT CARRIER EXAM: MRI KNEE RIGHT WO CONTRAST*[id number] INDICATION: Right knee pain and swelling TECHNIQUE: Multiplanar, multisequence magnetic resonance imaging of the right knee performed without contrast FINDINGS: There is intrasubstance degenerative signal in the medial and lateral menisci with superimposed irregular tearing of the posterior horn of the medial meniscus and the anterior horn of the lateral meniscus. A joint effusion is noted. Anterior and posterior cruciate ligaments, medial and lateral collateral ligaments, and quadriceps/patellar tendons are intact and unremarkable. There is no patellar retinacular disruption or patellar dislocation. 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 A full-thickness osteochondral lesion is not identified. There is an 8 x 2 mm loose body adjacent to the lateral patellar retinaculum in the anterior joint space which appears to be a cartilaginous fragment. The possible donor site is the lateral patellar facet. Procedure Note Luis Hatch MD - 06/03/2019 EXAM: MRI KNEE RIGHT WO CONTRAST*[id number] INDICATION: Right knee pain and swelling TECHNIQUE: Multiplanar, multisequence magnetic resonance imaging of the right knee performed without contrast FINDINGS: There is intrasubstance degenerative signal in the medial and lateral menisci with superimposed irregular tearing of the posterior horn of the medial meniscus and the anterior horn of the lateral meniscus. A joint effusion is noted. Anterior and posterior cruciate ligaments, medial and lateral collateral ligaments, and quadriceps/patellar tendons are intact and unremarkable. There is no patellar retinacular disruption or patellar dislocation. 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 A full-thickness osteochondral lesion is not identified. There is an 8 x 2 mm loose body adjacent to the lateral patellar retinaculum in the anterior joint space which appears to be a cartilaginous fragment. The possible donor site is the lateral patellar facet. IMPRESSION Joint effusion with loose body adjacent to the lateral aspect of the patella as described above Tricompartmental degenerative changes as above Chronic degradation of the medial lateral menisci with superimposed tears of the posterior horn of the medial meniscus and anterior horn of the lateral meniscus Reading Radiologist: Luis Hatch MD on 06/03/2019 at 12:02 PM Zoila James PA-C ORDERABLES * (ABNORMAL) D-DIMER (03/30/2019 11:15 PM MEAT CARRIER) D-Dimer 0.75(H) 0.27 - 0.5 ug/mL FEU 03/30/2019 11:47 PM MEAT CARRIER [facility] Blood BLOOD SPECIMEN / Unknown Venipuncture / Unknown 03/30/2019 11:15 PM MEAT CARRIER 03/30/2019 11:24 PM MEAT CARRIER Narrative [facility] - 03/30/2019 11:47 PM MEAT CARRIER The [employer] D-Dimer assay is intended for use as an aid in diagnosis of venous thromboembolism [(VTE): deep vein thrombosis (DVT), pulmonary embolism (PE), and disseminated intravascular coagulation (DIC)], and has received U.S. Food and Drug Administration (FDA) approval to exclude VTE in patients with low or moderate pretest probability of PE or DVT (per Wells' rules). At a clinical cut-off value 0.50 ug/mL FEU, the Negative Predictive Value of this assay is 99.8% for excluding PE and 100% for excluding DVT. A very low percentage of patients with VTE may yield D-Dimer results below the cut-off value. An elevated D-Dimer result has low specificity (40.4% for PE, 35.5% for DVT) and is a poor predictor of VTE. An elevated D-Dimer result may indicate DIC in the appropriate clinical setting. Results of this test should always be interpreted in conjunction with the patient's medical history, clinical presentation, and other findings. Esther Daly CARPENTER ASSEMBLER-CORRECTIONAL MAINTENANCE TECHNICIAN LAB - [facility] ORDERABLES [facility] [address] [place] [address] * (ABNORMAL) CBC W AUTO DIFFERENTIAL (03/30/2019 11:15 PM MEAT CARRIER) WBC 7.4 4.4 - 10.7 x10E9/L 03/30/2019 11:36 PM [facility] WBC Corrected 03/30/2019 11:36 PM [facility] RBC 4.23 3.80 - 5.20 x10E12/L 03/30/2019 11:36 PM [facility] Hemoglobin 13.2 12.0 - 15.6 gm/dL 03/30/2019 11:36 PM [facility] Hematocrit 41.4 35.9 - 45.5 % 03/30/2019 11:36 PM [facility] MCV 97.9 80.7 - 98.3 fl 03/30/2019 11:36 PM [facility] MCH 31.2 26.7 - 34.0 pg 03/30/2019 11:36 PM [facility] MCHC 31.9 30.8 - 35.9 gm/dL 03/30/2019 11:36 PM [facility] Platelet Count 262 153 - 416 x10E9/L 03/30/2019 11:36 PM [facility] RDW-CV 12.2 12.1 - 14.9 % 03/30/2019 11:36 PM [facility] MPV 9.0(L) 9.4 - 12.9 fl 03/30/2019 11:36 PM [facility] Neutrophils % 55.0 44.0 - 73.0 % 03/30/2019 11:36 PM [facility] Lymphocytes % 25.8 20.0 - 43.0 % 03/30/2019 11:36 PM [facility] Monocytes % 10.3 5.0 - 13.0 % 03/30/2019 11:36 PM [facility] Eosinophils % 7.7(H) 0.0 - 6.0 % 03/30/2019 11:36 PM [facility] Basophils % 0.9 0.0 - 2.0 % 03/30/2019 11:36 PM [facility] Immature Granulocytes 0.3 0 - 1 % 03/30/2019 11:36 PM [facility] Neutrophil Absolute 4.09 2.01 - 7.14 x10E9/L 03/30/2019 11:36 PM [facility] Lymphocytes Absolute 1.92 1.07 - 3.94 x10E9/L 03/30/2019 11:36 PM [facility] Monocytes Absolute 0.77 0.26 - 1.07 x10E9/L 03/30/2019 11:36 PM [facility] Eosinophils Absolute 0.57(H) 0 - 0.47 x10E9/L 03/30/2019 11:36 PM [facility] Basophils Absolute 0.07 0 - 0.08 x10E9/L 03/30/2019 11:36 PM [facility] Immature Granulocytes Absolute 0.02 0.00 - 0.06 x10E9/L 03/30/2019 11:36 PM [facility] nRBC Auto 0 /100 WBC 03/30/2019 11:36 PM [facility] Blood BLOOD SPECIMEN / Unknown Venipuncture / Unknown 03/30/2019 11:15 PM MEAT CARRIER 03/30/2019 11:24 PM [facility] Esther Esqueda Addy CARPENTER ASSEMBLER-CORRECTIONAL MAINTENANCE TECHNICIAN LAB - HEMAT OLOGY ORDERABLES [facility] [id number] [place] [address] * COMPREHENSIVE METABOLIC PANEL (03/30/2019 11:15 PM [facility]) Glucose 98 70 - 105 mg/dL 03/30/2019 11:42 PM [facility] Sodium 140 136 - 145 mmol/L 03/30/2019 11:42 PM [facility] Potassium 4.2 3.5 - 4.7 mmol/L 03/30/2019 11:42 PM [facility] Chloride 104 98 - 107 mmol/L 03/30/2019 11:42 PM [facility] CO2 26 23 - 31 mmol/L 03/30/2019 11:42 PM [facility] Calcium 9.5 8.4 - 10.4 mg/dL 03/30/2019 11:42 PM [facility] Anion Gap 10 8 - 16 mmol/L 03/30/2019 11:42 PM [facility] BUN 18 9.8 - 20.1 mg/dL 03/30/2019 11:42 PM [facility] Creatinine 0.83 0.57 - 1.11 mg/dL 03/30/2019 11:42 PM [facility] Alkaline Phosphatase 63 40 - 150 U/L 03/30/2019 11:42 PM [facility] ALT 13 0 - 61 U/L 03/30/2019 11:42 PM MEAT CARRIER [facility] AST 20 5 - 34 U/L 03/30/2019 11:42 PM MEAT CARRIER [facility] Protein Total 7.6 6.4 - 8.3 gm/dL 03/30/2019 11:42 PM MEAT CARRIER [facility] Albumin 4.3 3.2 - 4.6 gm/dL 03/30/2019 11:42 PM MEAT CARRIER [facility] Bilirubin Total 0.7 0.2 - 1.0 mg/dL 03/30/2019 11:42 PM MEAT CARRIER [facility] eGFR by MDRD >60 mL/min/1.7 3m2 03/30/2019 11:42 PM MEAT CARRIER [facility] eGFR by MDRD >60 mL/min/1.7 3m2 03/30/2019 11:42 PM MEAT CARRIER [facility] Blood BLOOD SPECIMEN / Unknown Venipuncture / Unknown 03/30/2019 11:15 PM MEAT CARRIER 03/30/2019 11:24 PM MEAT CARRIER Esther Daly CARPENTER ASSEMBLER-CORRECTIONAL MAINTENANCE TECHNICIAN LAB - CHEMI STRY ORDERABLES [facility] [address] [place] [address] * XR KNEE 4+ VW RIGHT (03/30/2019 6:58 PM MEAT CARRIER) Anatomical Region Laterality Modality Lower Extremity Radiographic Tracey ging 03/30/2019 7:07 PM MEAT CARRIER Impressions 03/30/2019 7:08 PM MEAT CARRIER Negative for fracture at this time. ??Please see above. This report was transcribed with a computerized speech recognition system. ??In an effort to expedite patient care, it has not been adjusted for typographical, grammatical or syntax problems by a trained medical management specialist. For questions about the report, please contact the Radiology Department. Reading Radiologist: Rodrigo Villanueva MD on 03/30/2019 at 7:08 PM Narrative 03/30/2019 7:08 PM MEAT CARRIER Examination: ??Right knee 4 views . Indication: ??Patient presents to ED for right knee pain (anterior/posterior) and swelling. Pain is worse with flexion or weight-bearing. Denies injury. Patient has history of arthritis. . Initial plain film of the specified type today. Findings: No fracture can be identified on the current plain films. Lateral view shows focal increased soft tissue density superior to the patella consistent with a small joint effusion. ??Arthritic changes are similar to the previous examination of January 17, 2017. ??If the patient's symptoms persist or worsen, consideration may be given to an alternative imaging modality such as a scheduled MRI or a bone scan to check for an occult process. Procedure Note Rodrigo Villanueva MD - 03/30/2019 Examination: Right knee 4 views . Indication: Patient presents to ED for right knee pain (anterior/posterior) and swelling. Pain is worse with flexion or weight-bearing. Denies injury. Patient has history of arthritis. . Initial plain film of the specified type today. Findings: No fracture can be identified on the current plain films. Lateral view shows focal increased soft tissue density superior to the patella consistent with a small joint effusion. Arthritic changes are similar to the previous examination of January 17, 2017. If the patient's symptoms persist or worsen, consideration may be given to an alternative imaging modality such as a scheduled MRI or a bone scan to check for an occult process. IMPRESSION Negative for fracture at this time. Please see above. This report was transcribed with a computerized speech recognition system. In an effort to expedite patient care, it has not been adjusted for typographical, grammatical or syntax problems by a trained medical management specialist. For questions about the report, please contact the Radiology Department. Reading Radiologist: Rodrigo Villanueva MD on 03/30/2019 at 7:08 PM Esther Daly APRN-CORRECTIONAL MAINTENANCE TECHNICIAN DIAGNOSTIC IMAGING ORDERABLES Care Teams Laborer Heading Relationship Specialty Start Date End Date Tay Gastelum MD [address] [address] PCP - General Family Medicine 04/06/18 [place] [address] [address] [address] Orthopedic Surgery 10/03/14 [place] [address] [address] Physical Medicine and Rehabilitation 02/23/24
--- OUTSIDE RECORDS SUMMARY | 2024-06-26 20:10 | XMS_ITS | Continuity of Care Document ---
Author Organization [facility] Address [address] [facility] [address] [address]za [address] [place] [phone] Phone Care Team Providers Care Picture Painter Name Role Phone Meredith Bertrand Unavailable Unavailable Procedures Procedure Date After Cataract Laser Surgery Office/outpatient Visit, Est Office/outpatient Visit, Est Vision Svcs Frames Purchases TF Plastic Sphcyl [place] To +/-4d .12-2d Progressive Lens Per Lens Anti-reflective Coating Frames Deluxe Progressive Lens, Polycarb Anti-reflective Coating Post-op Follow-up Visit Post-op Follow-up Visit Post-op Follow-up Visit Remove Cataract, Insert Lens Eye Exam Established Pt IOLMaster-Professional Office/outpatient Visit, Est Office/outpatient Visit, Est Optic Nerve Head Eval Visual Functional Status Assessed TF Plastic Sphcyl [place] To +/-4d .12-2d Oct- Vision Svcs Frames [...] Diagnoses Date Provider Providers Copied on Encounter [facility], [address] [place] [address] [address], [place], [place], [address], tel:[phone] [facility] No Information 201 0 Elza Juann. [address] , [address], [place], [place], [facility], . tel:[phone] Office/outpat ient Visit, [facility], [address] [place] [address] [address], [place], [place], [address], tel:[phone] [facility] No Information 0 Elza Harper. [address] , [address], [place], [place], [facility], [place]. tel:[phone] Office/outpat ient Visit, [facility], [address] [place] [address] [address], [place], [place], [address], [place] tel:[phone] [facility] No Information 5-200 9 Elza Solis [address] , [address], [place], [place], [facility], . tel:[phone] [facility], [address] [place] [address] [address], [place], [place], [address], [place] tel:[phone] [facility] No Information 9 [employer] [facility] . [address] [facility] [facility], [address], [place], [place], [address], [place]. tel:[phone] Referring Provider: Meredith Braswell, [address], [place], [place], [facility]. tel:[phone] [facility], [address], [place], [place], [address], [place] tel:[phone] [facility] No Information 9 [employer] . [address] [facility], [address], [place], [place], [address], [place]. tel:[phone] [facility], [address], [place], [place], [address], [place] tel:[phone] [facility] No Information 9 Elza Harper. [address] , [address], [place], [facility], [place]. tel:[phone] [facility], [address], [place], [place], [address], [place] tel:[phone] [facility] No Information 9 Elza Solis [address] , [address], [place], [facility], [place]. tel:[phone] [facility], [address], [place], [place], [address], [place] tel:[phone] [facility] No Information 9 Elza Solis [address] , [address], [place], [facility], [place]. tel:[phone] [facility], [address], [place], [place], [address], [place] tel:[phone] [facility] No Information Messi-0 7-200 9 Elza Harper. [address] , [address], [place], [facility], [place]. tel:[phone] [facility], [address], [place], [place], [address], [place] tel:[phone] [facility] No Information Dec-3 0-200 8 Elza Solis [address] , [address], [place], [facility], [place]. tel:[phone] Referring Provider: Meredith Braswell, [address], [place], [facility]. tel:[phone] Office/outpat ient Visit, [facility], [address] [place] [address] [address], [place], [place], [address], [place] tel:[phone] [facility] No Information Bertrand-0 3-200 8 Elza Harper. [address] , [address], [place], [facility], [place]. tel:[phone] Office/outpat ient Visit, [facility], [address] [place] [address] [address], [place], [place], [address], [place] tel:[phone] [facility] No Information Dec-0 4-200 7 Elza Solis [address] , [address], [place], [facility], [place]. tel:[phone] [facility], [address] [place] [address] [address], [place], [place], [address], [place] tel:[phone] [facility] No Information Oct-1 5-200 7 [facility] . [address] [facility], [address], [place], [place], [address], [place]. tel:[phone] Referring Provider: Meredith Braswell, [address], [place], [facility]. tel:[phone] [facility], [address], [place], [place], [address], [place] tel:[phone] [facility] No Information Oct-0 5-200 7 Bertrand Meredith. [address], [address], [place], [facility], [place]. tel:[phone] [facility], [address] [place] [address] [address], [place], [place], [address], [place] tel:[phone] [facility] No Information Sep-1 4-200 7 Bertrand Meredith. [address] , [address], [place], [facility], [place]. tel:[phone] [facility], [address], [place], [place], [address], [place] tel:[phone] [facility] No Information Sep-1 1-200 7 Bertrand Meredith. [address] , [address], [place], [facility], [place]. tel:[phone] [facility], [address] [place] [address] [address], [place], [place], [address], [place] tel:[phone] [facility] No Information Sep-0 7-200 7 Bertrand Meredith. [address] , [address], [place], [facility], [place]. tel:[phone] [facility], [address] [place] [address] [address], [place], [place], [address], [place] tel:[phone] [facility] No Information Sep-0 6-200 7 Bertrand Meredith. [address] , [address], [place], [facility], [place]. tel:[phone] [facility], [address], [place], [place], [address], [place] tel:[phone] [facility] No Information 7 Elza Solis [address] , [address], [place], [facility], [place]. tel:[phone] Office/outpat ient Visit, [facility], [address], [place], [place], [address], [place] tel:[phone] [facility] No Information 7 Elza Solis [address] , [address], [place], [facility], [place]. tel:[phone] Referring Provider: Meredith Braswell, [address], [place], [facility]. tel:[phone] Office/outpat ient Visit, [facility], [address], [place], [place], [address], [place] tel:[phone] [facility] No Information 7 Holly Yoder. [address] [facility], [address], [place], [place], [address], [place]. tel:[phone] [facility], [address], [place], [place], [address], [place] tel:[phone] [facility] No Information 7 Elza Solis [address] , [address], [place], [facility], [place]. tel:[phone] Family History Family Member Type Diagnosis Age At Onset No Information Payers Payer name Insurance type Covered republican ID Authoriza tion(s) Medicare [facility] [id number] [id number] Social History Type Description Quantity Date Captured [...]
--- OUTSIDE RECORDS SUMMARY | 2024-06-26 20:10 | XMS_ITS | Clinical Summary ---
Author Organization [facility] Address [address] [facility] [place] [address] Care Team Providers Care Hoof Trimmer Name Role Phone Porfirio Tai MD Unavailable [phone] Tay Gastelum MD Primary Care Provider Oni Womack MD Unavailable [phone] Source Comments [facility],non-owned Affiliates and Associated Physician Practices is amultiple site organization consisting of ambulatory clinics and hospital sitesin [place], [place], [place] and [place]. This disclosure is being madepursuant to the Care Everywhere program and may not contain all information available regarding this patient. Last updated 18.[facility] Allergies Active Allergy Reactions Criticality Noted Date [...] 07/04/2017 Primary osteoarthritis of right knee 06/08/2015 Encounters Date Type Department Care Team Description 04/19/2024 2:30 PM PHYSICAL THERAPY COORDINATOR - 04/19/2024 11:59 PM [facility] Hospital Encounter [address] [address] Oni Womack MD Discharge Disposition: Home or Self Care 04/19/2024 2:30 PM PHYSICAL THERAPY COORDINATOR Office Visit [address] [phone] Oni Womack MD Spinal stenosis of lumbar region, unspecified whether neurogenic claudication present (Primary Dx); HNP (herniated nucleus pulposus), lumbar; Lumbosacral radiculitis; Gait difficulty 04/19/2024 2:28 PM PHYSICAL THERAPY COORDINATOR - 04/19/2024 2:29 PM PHYSICAL THERAPY COORDINATOR Hospital Encounter [address] [address] Oni Womack MD Discharge Disposition: Home or Self Care 04/07/[address] [phone] Oni Womack MD Question 04/06/2024 Telephone [facility] Health Pain Care [address] [place] [phone] Oni Womack MD Patient Requested Call; Results 04/05/2024 2:56 PM PHYSICAL THERAPY COORDINATOR - 04/05/2024 11:59 PM PHYSICAL THERAPY COORDINATOR Hospital Encounter [facility] Health Imaging Services - MRI [address] [place] [address] Oni Womack MD Discharge Disposition: Home or Self Care 03/30/2024 2:50 PM PHYSICAL THERAPY COORDINATOR Office Visit [facility] [address] [place] [phone] Oni Womack MD Gait difficulty (Primary Dx); Spinal stenosis of lumbar region, unspecified whether neurogenic claudication present; HNP (herniated nucleus pulposus), lumbar; Lumbosacral radiculitis; Myofascial pain from Last 3 Months Family History Medical History Relation Name Comments Diabetes - Type 2 Sister Relation Name Status Comments Sister Social History Tobacco Use Types Packs/Day Years [...] Comments Blood Pressure 138/67 04/19/2024 3:13 PM PHYSICAL THERAPY COORDINATOR Pulse 109 04/19/2024 3:13 PM PHYSICAL THERAPY COORDINATOR Temperature 36.7 ??C (98.1 ??F) 08/14/2019 7:35 AM CD T Respiratory Rate 16 04/19/2024 3:13 PM PHYSICAL THERAPY COORDINATOR Oxygen Saturation 94% 04/19/2024 3:13 PM PHYSICAL THERAPY COORDINATOR Inhaled Oxygen Concentration - - Weight 85.3 kg (188 lb) 03/30/2024 1:38 PM PHYSICAL THERAPY COORDINATOR Height 165.1 cm (5' 5 ) 03/30/2024 1:38 PM PHYSICAL THERAPY COORDINATOR Body Mass Index 31.28 03/30/2024 1:38 PM PHYSICAL THERAPY COORDINATOR Plan of Treatment Health Maintenance Due Date Last Done Comments BONE DENSITY TESTING 1940 MEDICARE AWV ? 12 MONTHS 1940 DTAP/TDAP/TD VACCINES (1 - Tdap) 11/12/1958 PNEUMOCOCCAL VACCINE 50+ (1 of 1 - PCV) 11/12/1989 ZOSTER VACCINE (1 of 2) 11/12/1989 Respiratory Syncytial Virus (RSV) Vaccine Pt: or over 60 yrs (1 - 1-dose 75+ series) 11/12/2014 COVID-19 VACCINE ( - 2023-2 5 season) 2024 INFLUENZA VACCINE (#1) 2024 DEPRESSION SCREENING 05/26/2024 04/19/2024 HEPATITIS B VACCINE Aged Out No longe r eligible based on patient's age to complete this topic HIB VACCINE Aged Out No longer eligi ble based on patient's age to complete this topic HPV VACCINE Aged Out No longer eligi ble based on patient's age to complete this topic MENINGOCOCCAL (Group B) VACCINE Aged Out No longer eligible based on patient's age to complete this topic MENINGOCOCCAL VACCINE Aged Out No gracia ruby eligible based on patient's age to complete this topic Medical Devices Implanted Type Area Link Trainer Maintenance Man Device Identifier Shelf Expiration Date Model / Serial / Lot Juan Bone [place]-G Hv Implanted:Qty: 1 on 08/12/2019 by Porfirio Tai MD at [facility] Right: Knee [employer] 01/04/2021 [id number] / / [id number] Cmpnt Fem Kn Rt Cr Cmnt Prm Vngrd Intlk Implanted:Qty: 1 on 08/12/2019 by Porfirio Tai MD at [facility] Right: Knee [employer] 04/30/2029 [id number] / / [id number] Cmpnt Ptlr 28mm 1 Pg Wire Ascnt Arcm Kn Implanted:Qty: 1 on 08/12/2019 by Porfirio Tai MD at [facility] Right: Knee [employer] 06/30/2024 [id number] / / [id number] Tray Tib 75mm Kn Cocr I Beam Implanted:Qty: 1 on 08/12/2019 by Porfirio Tai MD at [facility] Right: Knee [employer] 07/06/2029 [id number] / / [id number] Brng 81mrd58ml Vngrd Arcm Kn Ant Stab Implanted:Qty: 1 on 08/12/2019 by Porfirio Tai MD at [facility] Right: Knee [employer] 12/14/2022 [id number] / / [id number] Procedures Procedure Name Priority Date/Time Associated Diagnosis Comments PAIN MANAGEMENT PROCEDURE TIME Routine 04/19/2024 3:13 PM PHYSICAL THERAPY COORDINATOR Disorder of sacrum MRI LUMBAR SPINE WO CONTRAST Routine 04/05/2024 4:25 PM PHYSICAL THERAPY COORDINATOR Gait difficulty Spinal stenosis of lumbar region, unspecified whether neurogenic claudication present HNP (herniated nucleus pulposus), lumbar Lumbosacral radiculitis from Last 3 Months Results * PAIN MANAGEMENT PROCEDURE TIME (04/19/2024 3:13 PM PHYSICAL THERAPY COORDINATOR) Anatomical Region Laterality Modality X-Ray Angiograph y Narrative 04/19/2024 5:11 PM PHYSICAL THERAPY COORDINATOR Oni Womack MD ? 04/19/2024 ??5:13 PM Transforaminal Right L5 ,S1 Selective Nerve Root Injection Sylvia Sullivan [id number] 04/19/2024 Allergies Allergen Reactions Pcn [Penicillins] ?? [...] a routine sterile fashion using chloroprep. Responsible independent driver not needed as the patient is [...] to home. Patient survey given. Procedure codes: 49399,22641 Pre VAS 01/02 Post VAS 01/02 Oni Womack MD Oni Womack MD DIAGNOSTIC IMAGING O RDERABLES * MRI Lumbar Spine Wo Contrast (04/05/2024 4:25 PM PHYSICAL THERAPY COORDINATOR) Anatomical Region Laterality Modality Spine Magnetic Resonan ce 04/05/2024 4:56 PM PHYSICAL THERAPY COORDINATOR Impressions 04/06/2024 12:40 PM PHYSICAL THERAPY COORDINATOR IMPRESSION: MODERATE TO SEVERE RIGHT AND MODERATE LEFT FORAMINAL STENOSIS AT L5-S1. MODERATE CANAL AND BILATERAL LATERAL RECESS STENOSIS AT L4-L5. 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 ADDITIONAL MULTILEVEL SPONDYLITIC DISEASE DISCUSSED ABOVE. Edited by Ebony Zavala on 04/06/2024 8:19 AM > Interpreting Provider: Shani Myles MD on 04/06/2024 12:40 PM Narrative 04/06/2024 12:40 PM PHYSICAL THERAPY COORDINATOR PROCEDURE: ??MRI LUMBAR SPINE WO CONTRAST DATE/TIME [...] MD MR ORDERABLES from Last 3 Months Advance Directives * Full Code (Latest Code Status on File) Date Activated Date Inactivated Comments 08/12/2019 11:04 AM 08/14/2019 2:07 PM Care Teams Hoof Trimmer Relationship Specialty Start Date End Date Tay Gastelum MD [address] [place] [address] PCP - General Family Medicine 04/06/18 [place] [address] [place] [address] Orthopedic Surgery 10/03/14 [place] [address] [address] [place] [address] Physical Medicine and Rehabilitation 02/23/24
--- NOTE | 2024-06-26 20:13 | ECG_ITS ---
Test Date: 2024-06-26 20:17:53 Measurements Intervals [place] Rate: 99 P: 32 KS: 152 QRS: -16 QRSD: 86 T: 49 QT: 338 QTc: 434 Interpretive Statements SINUS RHYTHM POSSIBLE LEFT ATRIAL ENLARGEMENT DELAYED PRECORDIAL R/S TRANSITION BASELINE WANDER- V1, V4 BORDERLINE ECG Compared to ECG 06/26/2024 19:33:35 NO SIGNIFICANT CHANGE Electronically Signed On 06-27-2024 08:36:58 AUTOMOTIVE HARDWARE ENGINEER by Felton Elmore D.O.
[2024-06-26 20:14] VITALS: BP 166/80; PULSE 98; RESP 22; TEMP 36.2; O2SAT 95
[2024-06-26 21:34] LABS: Basophils Absolute Auto 0.1 K/mm3 (0.0-0.1); Basophils Percent Auto 0.7 % (0.2-1.2); Eosinophils Absolute Auto 0.8 K/mm3 (0-0.3); Eosinophils Percent Auto 7.6 % (0-4.4); Hematocrit 36.5 % (37.0-47.0); Hemoglobin 11.6 g/dL (12.0-15.0); Immature Granulocyte Absolute 0.03 K/mm3 (0.00-0.031); Immature Granulocyte Percent A 0.3 % (0-0.5); Lymphocytes Absolute Auto 0.69 K/mm3 (0.9-3.2); Lymphocytes Percent Auto 6.9 % (18.3-44.2); Mean Corpuscular HGB Conc 31.8 g/dl (32-36); Mean Corpuscular Hemoglobin 31.4 pg (26-34); Mean Corpuscular Volume 98.9 fl (80-100); Mean Platelet Volume 8.5 fl (7.4-10.4); Monocytes Absolute Auto 0.8 K/mm3 (0.1-0.6); Monocytes Percent Auto 8.1 % (2.6-8.5); Neutrophils Absolute Auto 7.6 K/mm3 (1.3-6.7); Neutrophils Percent Auto 76.4 % (45.5-73.1); Platelet Count Result 375 k/mm3 (150-375); Red Blood Count 3.69 M/mm3 (4.2-5.4); Red Cell Distribution Width 13.2 % (11.5-14.5)
[2024-06-26 21:44] LABS: Prothrombin Time 13.5 Seconds (11.1-14.7)
[2024-06-26 21:45] LABS: Partial Thromboplastin Time 28.8 Seconds (22.3-36.8)
[2024-06-26 21:48] LABS: Alanine Aminotransferase 11 U/L (6-35); Albumin Level 4.5 g/dL (3.5-5.1); Alkaline Phosphatase 60 U/L (38-126); Anion Gap 8 mmol/L (4-12); Aspartate Amino Transferase 29 U/L (14-36); Bilirubin,Total 0.7 mg/dL (0.2-1.3); Blood Urea Nitrogen 16 mg/dL (7-17); Calcium 9.9 mg/dL (8.4-10.2); Carbon Dioxide 29 mmol/L (22-30); Chloride 100 mmol/L (98-107); Estimated CRCL calculation 38 ml/min; Estimated Glomerular Filt Rate 54; Glucose 121 mg/dL (65-110); Lipase 85 U/L (23-300); Potassium 4.4 mmol/L (3.4-5.0); Sodium 137 mmol/L (137-145)
[2024-06-26 21:59] LABS: Troponin I < 0.012 ng/mL (0.000-0.034)
--- OUTSIDE RECORDS SUMMARY | 2024-06-26 22:06 | XMS_ITS | Clinical Summary ---
Author Organization [facility] Address [address] [facility] [place] [address] Care Team Providers Care Intermediate School Teacher Name Role Phone Porfirio Tai MD Unavailable [phone] Tay Gastelum MD Primary Care Provider Oni Womack MD Unavailable [phone] Source Comments [facility],non-owned Affiliates and Associated Physician Practices is amultiple site organization consisting of ambulatory clinics and hospital sitesin [place], [place], [place] and [place]. This disclosure is being madepursuant to the Care Everywhere program and may not contain all information available regarding this patient. Last updated 18.[facility] Allergies Active Allergy Reactions Criticality Noted Date [...] Department Care Team Description 04/19/2024 2:30 PM BEVERAGE STEWARD - 04/19/2024 11:[address] [facility] Hospital Encounter [address] [address] Oni Womack MD Discharge Disposition: Home or Self Care 04/19/2024 2:30 PM BEVERAGE STEWARD Office Visit [address] [phone] Oni Womack MD Spinal stenosis of lumbar region, unspecified whether neurogenic claudication present (Primary Dx); HNP (herniated nucleus pulposus), lumbar; Lumbosacral radiculitis; Gait difficulty 04/19/2024 2:28 PM BEVERAGE STEWARD - 04/19/2024 2:29 PM BEVERAGE STEWARD Hospital Encounter [address] [address] Oni Womack MD Discharge Disposition: Home or Self Care 04/07/[address] [phone] Oni Womack MD Question 04/06/[address] [facility] Health Pain Care [address] [facility] [address] [facility] [place] [phone] Oni Womack MD Patient Requested Call; Results 04/05/2024 2:56 PM BEVERAGE STEWARD - 04/05/2024 11:59 PM BEVERAGE STEWARD Hospital Encounter [facility] Health Imaging Services - MRI [address] [facility] [address] [facility] [place] [address] Oni Womack MD Discharge Disposition: Home or Self Care 03/30/2024 2:50 PM BEVERAGE STEWARD Office Visit [facility] [address] [facility] [address] [facility] [place] [phone] Oni Womack MD Gait difficulty (Primary Dx); [...] Comments Blood Pressure 138/67 04/19/2024 3:13 PM BEVERAGE STEWARD Pulse 109 04/19/2024 3:13 PM BEVERAGE STEWARD Temperature 36.7 ??C (98.1 ??F) 08/14/2019 7:35 AM CD T Respiratory Rate 16 04/19/2024 3:13 PM BEVERAGE STEWARD Oxygen Saturation 94% 04/19/2024 3:13 PM BEVERAGE STEWARD Inhaled Oxygen Concentration - - Weight 85.3 kg (188 lb) 03/30/2024 1:38 PM BEVERAGE STEWARD Height 165.1 cm (5' 5 ) 03/30/2024 1:38 PM BEVERAGE STEWARD Body Mass Index 31.28 03/30/2024 1:38 PM BEVERAGE STEWARD Plan of Treatment Health Maintenance Due Date [...] this topic Medical Devices Implanted Type Area Orchestra Director Device Identifier Shelf Expiration Date Model / Serial / Lot Juan Bone [place]-G Hv Implanted:Qty: 1 on 08/12/2019 by Porfirio Tai MD at [facility] Right: Knee [employer] 01/04/2021 600-15-100 / / [id number] Cmpnt Fem Kn Rt Cr Cmnt Prm Vngrd Intlk Implanted:Qty: 1 on 08/12/2019 by Porfirio Tai MD at [facility] Right: Knee [employer] 04/30/2029 [id number] / / [id number] Cmpnt Ptlr 28mm 1 Pg Wire Ascnt Arcm Kn Implanted:Qty: 1 on 08/12/2019 by Porfirio Tai MD at [facility] Right: Knee [employer] 06/30/2024 [id number] / / [id number] Tray Tib 75mm Kn Cocr I Beam Implanted:Qty: 1 on 08/12/2019 by Porfirio Tai MD at [facility] Right: Knee [employer] 07/06/2029 [id number] / / [id number] Brng [id number] Vngrd Arcm Kn Ant Stab Implanted:Qty: 1 on 08/12/2019 by Porfirio Tai MD at [facility] Right: Knee [employer] 12/14/2022 [id number] / / [id number] Procedures Procedure Name Priority Date/Time Associated Diagnosis Comments PAIN MANAGEMENT PROCEDURE TIME Routine 04/19/2024 3:13 PM BEVERAGE STEWARD Disorder of sacrum MRI LUMBAR SPINE WO CONTRAST Routine 04/05/2024 4:25 PM BEVERAGE STEWARD Gait difficulty Spinal stenosis of lumbar region, unspecified whether neurogenic claudication present HNP (herniated nucleus pulposus), lumbar Lumbosacral radiculitis from Last 3 Months Results * PAIN MANAGEMENT PROCEDURE TIME (04/19/2024 3:13 PM BEVERAGE STEWARD) Anatomical Region Laterality Modality X-Ray Angiograph y Narrative 04/19/2024 5:11 PM BEVERAGE STEWARD Oni Womack MD ? 04/19/2024 ??5:13 PM Transforaminal Right L5 ,S1 Selective Nerve Root Injection Sylvia Sullivan [id number] 04/19/2024 Allergies Allergen Reactions Pcn [Penicillins] ?? [...] a routine sterile fashion using chloroprep. Responsible trash collector truck driver not needed as the patient is [...] to home. Patient survey given. Procedure codes: 85650,96257 Pre VAS 01/02 Post VAS 01/02 Oni Womack MD Oni Womack MD DIAGNOSTIC IMAGING O RDERABLES * MRI Lumbar Spine Wo Contrast (04/05/2024 4:25 PM BEVERAGE STEWARD) Anatomical Region Laterality Modality Spine Magnetic Resonan ce 04/05/2024 4:56 PM BEVERAGE STEWARD Impressions 04/06/2024 12:40 PM BEVERAGE STEWARD IMPRESSION: MODERATE TO SEVERE RIGHT AND MODERATE LEFT FORAMINAL STENOSIS AT L5-S1. MODERATE CANAL AND BILATERAL LATERAL RECESS STENOSIS AT L4-L5. 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 ADDITIONAL MULTILEVEL SPONDYLITIC DISEASE DISCUSSED ABOVE. Edited by Ebony Zavala on 04/06/2024 8:19 AM > Interpreting Provider: Shani Myles MD on 04/06/2024 12:40 PM Narrative 04/06/2024 12:40 PM BEVERAGE STEWARD PROCEDURE: ??MRI LUMBAR SPINE WO CONTRAST DATE/TIME [...] 11:04 AM 08/14/2019 2:07 PM Care Teams Intermediate School Teacher Relationship Specialty Start Date End Date Tay Gastelum MD [address] [place] [address] PCP - General Family Medicine 04/06/18 [place] [address] [place] [address] Orthopedic Surgery 10/03/14 [place] [address] [place] [address] Physical Medicine and Rehabilitation 02/23/24
--- OUTSIDE RECORDS SUMMARY | 2024-06-26 22:06 | XMS_ITS | Patient Health Summary ---
Author Organization [facility] Address [address] [place] [address] Care Team Providers Care Mri Technician Name Role Phone Porfirio Tai MD Unavailable [phone] Tay Gastelum MD Primary Care Provider Oni Womack MD Unavailable [phone] Note from [facility] [place],non-owned Affiliates and Associated Physician Practices is amultiple site organization consisting of ambulatory clinics and hospital sitesin [place], [place], [place] and [place]. This disclosure is being madepursuant to the Care Everywhere program and may not contain all information available regarding this patient. Last updated 18.[facility] Allergies * Penicillins * Cefpodoxime Medications * [...] Comments Blood Pressure 138/67 04/19/2024 3:13 PM AIX ADMINISTRATOR Pulse 109 04/19/2024 3:13 PM AIX ADMINISTRATOR Temperature 36.7 ??C (98.1 ??F) 08/14/2019 7:35 AM CD T Respiratory Rate 16 04/19/2024 3:13 PM AIX ADMINISTRATOR Oxygen Saturation 94% 04/19/2024 3:13 PM AIX ADMINISTRATOR Inhaled Oxygen Concentration - - Weight 85.3 kg (188 lb) 03/30/2024 1:38 PM AIX ADMINISTRATOR Height 165.1 cm (5' 5 ) 03/30/2024 1:38 PM AIX ADMINISTRATOR Body Mass Index 31.28 03/30/2024 1:38 PM AIX ADMINISTRATOR Medical Devices Implanted Type Area Dehydrogenation Operator Head Device Identifier Shelf Expiration Date Model / Serial / Lot Juan Bone [place]-G Hv 40/ Implanted:Qty: 1 on 08/12/2019 by Porfirio Tai MD at [facility] Right: Knee [employer] 01/04/2021 600-15-100 / / [id number] Cmpnt Fem Kn Rt Cr Cmnt Prm Vngrd Intlk Implanted:Qty: 1 on 08/12/2019 by Porfirio Tai MD at [facility] Right: Knee [employer] 04/30/2029 [id number] / / [id number] Cmpnt Ptlr 28mm 1 Pg Wire Ascnt Arcm Kn Implanted:Qty: 1 on 08/12/2019 by Porfirio Tai MD at [facility] Right: Knee [employer] 06/30/2024 [id number] / / [id number] Tray Tib 75mm Kn Cocr I Beam Implanted:Qty: 1 on 08/12/2019 by Porfirio Tai MD at [facility] Right: Knee [employer] 07/06/2029 [id number] / / [id number] Brng [id number] Vngrd Arcm Kn Ant Stab Implanted:Qty: 1 on 08/12/2019 by Porfirio Tai MD at [facility] Right: Knee [employer] 12/14/2022 [id number] / / [id number] Procedures * PAIN MANAGEMENT PROCEDURE TIME(Performed 04/19/2024) [...] PAIN MANAGEMENT PROCEDURE TIME (04/19/2024 3:13 PM AIX ADMINISTRATOR) Only the most recent of2 resultswithin the time period is included. Anatomical Region Laterality Modality X-Ray Angiograph y Narrative 04/19/2024 5:11 PM AIX ADMINISTRATOR Oni Womack MD ? 04/19/2024 ??5:13 PM Transforaminal Right L5 ,S1 Selective Nerve Root Injection Sylvia Sullivan [id number] 04/19/2024 Allergies Allergen Reactions Pcn [Penicillins] ?? [...] a routine sterile fashion using chloroprep. 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 Patient survey given. 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 MODERATE CANAL AND BILATERAL LATERAL RECESS STENOSIS AT L4-L5. 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 ADDITIONAL MULTILEVEL SPONDYLITIC DISEASE DISCUSSED ABOVE. Edited by Ebony Zavala on 04/06/2024 8:19 AM > Interpreting Provider: Shani Myles MD on 04/06/2024 12:40 PM Narrative 04/06/2024 12:40 PM AIX ADMINISTRATOR PROCEDURE: ??MRI LUMBAR SPINE WO CONTRAST DATE/TIME [...] disc space narrowing at L4-5. There is [id number] disc space narrowing at L5-S1. Severe disc [...] severe disc spacenarrowing at L4-5. There is hfsdhufr-to-udwrzb disc space narrowing at L5-S1.Severe disc space [...] Left 3Vw (02/23/2024 9:03 AM CDT) Narrative [facility] [address] - 02/23/2024 9:03 AM CDT Please see progress note in Epic for results. Blaine Hawkins APRN-FRATERNITY ADVISER DIAGNOSTI C IMAGING ORDERABLES [facility] [address] * XR [...] XR KNEE RIGHT 3VW (04/25/2020 10:01 AM AIX ADMINISTRATOR) Only the most recent of4 resultswithin the time period is included. Anatomical Region Laterality Modality Lower Extremity Computed Radiogr aphy Narrative 04/25/2020 10:05 AM AIX ADMINISTRATOR Adele Posadas RT(R) ? 05/08/2020 ??5:10 PM See progress notes for results Porfirio Tai MD DIAGNOSTIC IMAGING O RDERABLES * (ABNORMAL) HGB HCT PANEL (08/14/2019 2:19 AM CDT) Only the most recent of2 resultswithin the time period is included. Hemoglobin 10.5(L) 12.0 - 15.6 gm/dL 08/14/2019 2:54 AM CDT [facility] Hematocrit 33.0(L) 35.9 - 45.5 % 08/14/2019 2:54 AM CDT [facility] Blood BLOOD SPECIMEN / Unknown Venipuncture / Unknown 08/14/2019 2:19 AM CDT 08/14/2019 2:48 AM CDT Porfirio Tai MD LAB - HEMATOLOGY ORD ERABLES [facility] [address] [place] [address] * Neuraxial Block (08/12/2019 8:30 AM CDT) Narrative Roger Tafoya, CERTIFIED REAL ESTATE APPRAISERPEDRO - 08/12/2019 8:30 AM CDT Roger Tafoya [...] ??midline Skin was localized? ??Nursing documentation on [facility] Skin localized with: ??Lidocaine 1% and 1 [...] RDERABLES * EKG 12-LEAD (07/12/2019 3:36 PM AIX ADMINISTRATOR) Ventricular Rate 75 BPM [facility] Atrial Rate 75 BPM [facility] P-R Interval 136 ms [facility] QRS Duration ms 80 ms [facility] Q-T Interval ms 398 ms [facility] QTC Calculation (Bezet) 444 ms [facility] Calculated P Garland 37 degrees [facility] Calculated R Garland -27 degrees [facility] Calculated T Garland 50 degrees [facility] Interpretation EKG Normal sinus rhythm Possible Left atrial enlargement Borderline ECG When compared with ECG of 21-SEP-2008 11:55, No significant change was found Confirmed by LU CABALLERO MD ([id number]) on 07/13/2019 11:02:04 AM [facility] MUSE 07/12/2019 3:36 PM AIX ADMINISTRATOR 07/13/2019 11:02 AM AIX ADMINISTRATOR Luis Corona DO ECG ORDERABLES Performing Organization Address City/[facility]/ZIP Co de Phone Number [facility] MUSE * CULTURE MSSA/MRSA (07/12/2019 3:32 PM AIX ADMINISTRATOR) Pathologist [facility] Culture Negative for Staphylococcus aureus (MRSA/MSSA) 07/14/2019 7:25 AM AIX ADMINISTRATOR [facility] MICROBIOLOGY Microbiology SPECIMEN FROM NASAL FOSSAE / Unknown Collection / Unknown 07/12/2019 3:32 PM AIX ADMINISTRATOR 07/12/2019 4:28 PM AIX ADMINISTRATOR Aurora Lopez CERTIFIED REAL ESTATE APPRAISER-FRATERNITY ADVISER LAB - MICR OBIOLOGY ORDERABLES Performing Organization Address City/[facility]/ZIP Co de Phone Number [facility] MICROBIOLOGY [address] [place], [place] [address] [phone] * MRI KNEE RIGHT WO CONTRAST (06/03/2019 10:13 AM AIX ADMINISTRATOR) Anatomical Region Laterality Modality Lower Extremity Magnetic Resonan ce 06/03/2019 11:5 0 AM AIX ADMINISTRATOR Impressions 06/03/2019 12:02 PM AIX ADMINISTRATOR Joint effusion with loose body adjacent to the lateral aspect of the patella as described above Tricompartmental degenerative changes as above Chronic degradation of the medial lateral menisci with superimposed tears of the posterior horn of the medial meniscus and anterior horn of the lateral meniscus Reading Radiologist: Luis Hatch MD on 06/03/2019 at 12:02 PM Narrative 06/03/2019 12:02 PM AIX ADMINISTRATOR EXAM: MRI KNEE RIGHT WO CONTRAST*[id number] INDICATION: Right knee pain and swelling TECHNIQUE: [...] - 06/03/2019 EXAM: MRI KNEE RIGHT WO CONTRAST*[id number] INDICATION: Right knee pain and swelling TECHNIQUE: [...] horn of the lateral meniscus Reading Radiologist: uLis Hatch MD on 06/03/2019 at 12:02 PM Zoila James PA-C ORDERABLES * (ABNORMAL) D-DIMER (03/30/2019 11:15 PM AIX ADMINISTRATOR) D-Dimer 0.75(H) 0.27 - 0.5 ug/mL FEU 03/30/2019 11:47 PM AIX ADMINISTRATOR [facility] Blood BLOOD SPECIMEN / Unknown Venipuncture / Unknown 03/30/2019 11:15 PM AIX ADMINISTRATOR 03/30/2019 11:24 PM AIX ADMINISTRATOR Narrative [facility] - 03/30/2019 11:47 PM AIX ADMINISTRATOR The [employer] D-Dimer assay is intended for [...] clinical presentation, and other findings. Esther Daly CERTIFIED REAL ESTATE APPRAISER-FRATERNITY ADVISER LAB - [facility] ORDERABLES [facility] [address] [place] [address] * (ABNORMAL) CBC W AUTO DIFFERENTIAL (03/30/2019 11:15 PM AIX ADMINISTRATOR) WBC 7.4 4.4 - 10.7 x10E9/L 03/30/2019 11:36 PM [facility] WBC Corrected 03/30/2019 11:36 PM [facility] RBC 4.23 3.80 - 5.20 x10E12/L 03/30/2019 11:36 PM [facility] Hemoglobin 13.2 12.0 - 15.6 gm/dL 03/30/2019 11:36 PM [facility] Hematocrit 41.4 35.9 - 45.5 % 03/30/2019 11:36 PM [facility] MCV 97.9 80.7 - 98.3 fl 03/30/2019 11:36 PM [facility] MCH 31.2 26.7 - 34.0 pg 03/30/2019 11:36 PM [facility] MCHC 31.9 30.8 - 35.9 gm/dL 03/30/2019 11:36 PM [facility] Platelet Count 262 153 - 416 x10E9/L 03/30/2019 11:36 PM [facility] RDW-CV 12.2 12.1 - 14.9 % 03/30/2019 11:36 PM [facility] MPV 9.0(L) 9.4 - 12.9 fl 03/30/2019 11:36 PM [facility] Neutrophils % 55.0 44.0 - 73.0 % 03/30/2019 11:36 PM [facility] Lymphocytes % 25.8 20.0 - 43.0 % 03/30/2019 11:36 PM [facility] Monocytes % 10.3 5.0 - 13.0 % 03/30/2019 11:36 PM [facility] Eosinophils % 7.7(H) 0.0 - 6.0 % 03/30/2019 11:36 PM [facility] Basophils % 0.9 0.0 - 2.0 % 03/30/2019 11:36 PM [facility] Immature Granulocytes 0.3 0 - 1 % 03/30/2019 11:36 PM [facility] Neutrophil Absolute 4.09 2.01 - 7.14 x10E9/L 03/30/2019 11:36 PM [facility] Lymphocytes Absolute 1.92 1.07 - 3.94 x10E9/L 03/30/2019 11:36 PM [facility] Monocytes Absolute 0.77 0.26 - 1.07 x10E9/L 03/30/2019 11:36 PM [facility] Eosinophils Absolute 0.57(H) 0 - 0.47 x10E9/L 03/30/2019 11:36 PM [facility] Basophils Absolute 0.07 0 - 0.08 x10E9/L 03/30/2019 11:36 PM [facility] Immature Granulocytes Absolute 0.02 0.00 - 0.06 x10E9/L 03/30/2019 11:36 PM [facility] nRBC Auto 0 /100 WBC 03/30/2019 11:36 PM [facility] Blood BLOOD SPECIMEN / Unknown Venipuncture / Unknown 03/30/2019 11:15 PM AIX ADMINISTRATOR 03/30/2019 11:24 PM [facility] Esther Esqueda Addy CERTIFIED REAL ESTATE APPRAISER-FRATERNITY ADVISER LAB - HEMAT OLOGY ORDERABLES [facility] [id number] [place] [address] * COMPREHENSIVE METABOLIC PANEL (03/30/2019 11:15 PM [facility]) Glucose 98 70 - 105 mg/dL 03/30/2019 11:42 PM [facility] Sodium 140 136 - 145 mmol/L 03/30/2019 11:42 PM [facility] Potassium 4.2 3.5 - 4.7 mmol/L 03/30/2019 11:42 PM [facility] Chloride 104 98 - 107 mmol/L 03/30/2019 11:42 PM [facility] CO2 26 23 - 31 mmol/L 03/30/2019 11:42 PM [facility] Calcium 9.5 8.4 - 10.4 mg/dL 03/30/2019 11:42 PM [facility] Anion Gap 10 8 - 16 mmol/L 03/30/2019 11:42 PM [facility] BUN 18 9.8 - 20.1 mg/dL 03/30/2019 11:42 PM [facility] Creatinine 0.83 0.57 - 1.11 mg/dL 03/30/2019 11:42 PM [facility] Alkaline Phosphatase 63 40 - 150 U/L 03/30/2019 11:42 PM [facility] ALT 13 0 - 61 U/L 03/30/2019 11:42 PM AIX ADMINISTRATOR [facility] AST 20 5 - 34 U/L 03/30/2019 11:42 PM AIX ADMINISTRATOR [facility] Protein Total 7.6 6.4 - 8.3 gm/dL 03/30/2019 11:42 PM AIX ADMINISTRATOR [facility] Albumin 4.3 3.2 - 4.6 gm/dL 03/30/2019 11:42 PM AIX ADMINISTRATOR [facility] Bilirubin Total 0.7 0.2 - 1.0 mg/dL 03/30/2019 11:42 PM AIX ADMINISTRATOR [facility] eGFR by MDRD >60 mL/min/1.7 3m2 03/30/2019 11:42 PM AIX ADMINISTRATOR [facility] eGFR by MDRD >60 mL/min/1.7 3m2 03/30/2019 11:42 PM AIX ADMINISTRATOR [facility] Blood BLOOD SPECIMEN / Unknown Venipuncture / Unknown 03/30/2019 11:15 PM AIX ADMINISTRATOR 03/30/2019 11:24 PM AIX ADMINISTRATOR Esther Daly CERTIFIED REAL ESTATE APPRAISER-FRATERNITY ADVISER LAB - CHEMI STRY ORDERABLES [facility] [address] [place] [address] * XR KNEE 4+ VW RIGHT (03/30/2019 6:58 PM AIX ADMINISTRATOR) Anatomical Region Laterality Modality Lower Extremity Radiographic Tracey ging 03/30/2019 7:07 PM AIX ADMINISTRATOR Impressions 03/30/2019 7:08 PM AIX ADMINISTRATOR Negative for fracture at this time. ??Please see above. This report was transcribed with a computerized speech recognition system. ??In an effort to expedite patient care, it has not been adjusted for typographical, grammatical or syntax problems by a trained medical claims assistant. For questions about the report, please contact the Radiology Department. Reading Radiologist: Rodrigo Villanueva MD on 03/30/2019 at 7:08 PM Narrative 03/30/2019 7:08 PM AIX ADMINISTRATOR Examination: ??Right knee 4 views . Indication: [...] or syntax problems by a trained medical claims assistant. For questions about the report, please contact the Radiology Department. Reading Radiologist: Rodrigo Villanueva MD on 03/30/2019 at 7:08 PM Esther Daly APRN-FRATERNITY ADVISER DIAGNOSTIC IMAGING ORDERABLES Care Teams Mri Technician Relationship Specialty Start Date End Date Tay Gastelum MD [address] [place] [address] PCP - General Family Medicine 04/06/18 [place] [address] [address] [address] Orthopedic Surgery 10/03/14 [place] [address] [address] Physical Medicine and Rehabilitation 02/23/24
--- OUTSIDE RECORDS SUMMARY | 2024-06-26 22:06 | XMS_ITS | Continuity of Care Document ---
Author Organization [facility] Address [address] [facility] [address]za [address] [place] [phone] Phone Care Team Providers Care Artificial Flowers Starcher Name Role Phone Meredith Bertrand Unavailable Unavailable Procedures Procedure Date After Cataract Laser Surgery Office/outpatient Visit, Est Office/outpatient Visit, Est Vision Svcs Frames Purchases TF Plastic Sphcyl Temple To +/-4d .12-2d Progressive Lens Per Lens Anti-reflective Coating Frames Deluxe Progressive Lens, Polycarb Anti-reflective Coating Post-op Follow-up Visit Post-op Follow-up Visit Post-op Follow-up Visit Remove Cataract, Insert Lens Eye Exam Established Pt I[facility]-Professional Office/outpatient Visit, Est Office/outpatient Visit, Est Optic Nerve Head Eval Visual Functional Status Assessed TF Plastic Sphcyl Temple To +/-4d .12-2d Oct- Vision Svcs Frames [...] Diagnoses Date Provider Providers Copied on Encounter [facility], [address] [place] [address] [address], [place], [place], [address], tel:[phone] [facility] No Information 201 0 Elza Juann. [address] [facility] , [address], [place], [place], [facility][note 2], . tel:[phone] Office/outpat ient Visit, [facility], [address] [place] [address] [address], [place], [place], [address], tel:[phone] [facility] No Information 0 Elza Harper. [address] [facility] [facility] [address] , [address], [place], [place], [facility] [place][note 2], [place]. tel:[phone] Office/outpat ient Visit, [facility], [address] [place] [address] [address], [place], [place], [address], [place] tel:[phone] [facility] No Information 5-200 9 Elza Solis [address] [facility] [facility] [address] , [address], [place], [place], [facility][note 2], . tel:[phone] [facility], [address] [place] [address] [address], [place], [place], [address], [place] tel:[phone] [facility] No Information 9 [facility] . [address], [address], [place], [place], [address], [place]. tel:[phone] Referring Provider: Meredith Braswell, [address], [place], [place], [facility][note 2]. tel:[phone] [facility], [address], [place], [place], [address], [place] tel:[phone] [facility] No Information 9 [facility] . [address], [address], [place], [place], [address], [place]. tel:[phone] [facility], [address], [place], [place], [address], [place] tel:[phone] [facility] No Information 9 Elza Harper. [address] , [address], [place], [facility][note 2], [place]. tel:[phone] [facility], [address], [place], [place], [address], [place] tel:[phone] [facility] No Information 9 Elza Solis [address] , [address], [place], [facility][note 2], [place]. tel:[phone] [facility], [address], [place], [place], [address], [place] tel:[phone] [facility] No Information 9 Elza Solis [address] , [address], [place], [facility] [place][note 2], [place]. tel:[phone] [facility], [address], [place], [place], [address], [place] tel:[phone] [facility] No Information Messi-0 7-200 9 Elza Harper. [address] , [address], [place], [facility][note 2], [place]. tel:[phone] [facility], [address], [place], [place], [address], [place] tel:[phone] [facility] No Information Dec-3 0-200 8 Elza Solis [address] , [address], [place], [facility] [place][note 2], [place]. tel:[phone] Referring Provider: Meredith Braswell, [address], [place], [facility][note 2]. tel:[phone] Office/outpat ient Visit, [facility], [address] [place] [address] [address], [place], [place], [address], [place] tel:[phone] [facility] No Information Bertrand-0 3-200 8 Elza Harper. [address] [facility] , [address], [place], [facility][note 2], [place]. tel:[phone] Office/outpat ient Visit, [facility], [address] [place] [address] [address], [place], [place], [address], [place] tel:[phone] [facility] No Information Dec-0 4-200 7 Elza Solis [address] , [address], [place], [facility][note 2], [place]. tel:[phone] [facility], [address] [place] [address] [address], [place], [place], [address], [place] tel:[phone] [facility] No Information Oct-1 5-200 7 [facility] . [address], [address], [place], [place], [address], [place]. tel:[phone] Referring Provider: Meredith Braswell, [address], [place], [facility][note 2]. tel:[phone] [facility], [address], [place], [place], [address], [place] tel:[phone] [facility] No Information Oct-0 5-200 7 Bertrand Meredith. [address], [place], [facility][note 2], [place]. tel:[phone] [facility], [address] [place] [address] [address], [place], [place], [address], [place] tel:[phone] [facility] No Information Sep-1 4-200 7 Bertrand Meredith. [address] , [address], [place], [facility][note 2], [place]. tel:[phone] [facility], [address], [place], [place], [address], [place] tel:[phone] [facility] No Information Sep-1 1-200 7 Bertrand Meredith. [address] , [address], [place], [facility] [place][note 2], [place]. tel:[phone] [facility], [address] [place] [address] [address], [place], [place], [address], [place] tel:[phone] [facility] No Information Sep-0 7-200 7 Bertrand Meredith. [address] , [address], [place], [facility][note 2], [place]. tel:[phone] [facility], [address] [place] [address] [address], [place], [place], [address], [place] tel:[phone] [facility] [place] No Information Sep-0 6-200 7 Bertrand Meredith. [address] , [address], [place], [facility][note 2], [place]. tel:[phone] [facility], [address], [place], [place], [address], [place] tel:[phone] [facility] No Information 7 Elza Solis [address] [facility] [facility] [address] , [address], [place], [facility] [place][note 2], [place]. tel:[phone] Office/outpat ient Visit, [facility], [address] [place] [address], [place], [place], [address], [place] tel:[phone] [facility] No Information 7 Elza Solis [address] [facility] [facility] [address], [place], [facility] [place][note 2], [place]. tel:[phone] Referring Provider: Meredith Braswell, [address] [facility] [address], [place], [facility][note 2]. tel:[phone] Office/outpat ient Visit, [facility], [address], [place], [place], [address], [place] tel:[phone] [facility] No Information 7 Holly Yoder. [address] [facility], [address], [place], [place], [address], [place]. tel:[phone] [facility], [address], [place], [place], [address], [place] tel:[phone] [facility] No Information 7 Elza Solis [address] [facility] [facility] [address], [place], [facility] [place][note 2], [place]. tel:[phone] Family History Family Member Type Diagnosis Age At Onset No Information Payers Payer name Insurance type Covered constitution party ID Authoriza tion(s) Medicare [id number] Social History Type Description Quantity Date Captured [...]
--- OUTSIDE RECORDS SUMMARY | 2024-06-26 22:06 | XMS_ITS | Referral Summary ---
Author Organization [facility] Address [address] [place] [address] Care Team Providers Care Beauty Artist Name Role Phone Porfirio Tai MD Unavailable [phone] Tay Gastelum MD Primary Care Provider Oni Womack MD Unavailable [phone] Source Comments [facility],non-[facility] hospital Affiliates and Associated Physician Practices is amultiple site organization consisting of ambulatory clinics and hospital sitesin [place], [place], [place] and [place]. This disclosure is being madepursuant to the Care Everywhere program and may not contain all information available regarding this patient. Last updated 18.[facility] Encounters Date Type Department Care Team Description 04/19/2024 2:30 PM SKIP TRACER - 04/19/2024 11:59 PM SKIP TRACER Hospital Encounter [facility] [address] [place] [address] Oni Womack MD Discharge Disposition: Home or Self Care 04/19/2024 2:28 PM SKIP TRACER - 04/19/2024 2:29 PM SKIP TRACER Hospital Encounter [facility] [address] [place], [place] [phone] Oni Womack MD Discharge Disposition: Home or Self Care 04/19/2024 2:30 PM SKIP TRACER Office Visit [facility] [address] [place] [phone] Oni Womack MD Spinal stenosis of lumbar region, unspecified whether neurogenic claudication present (Primary Dx); HNP (herniated nucleus pulposus), lumbar; Lumbosacral radiculitis; Gait difficulty 04/07/2024 Telephone [facility] [address] [facility] [address] [facility] [place] [phone] Oni Womack MD Question 04/06/2024 Telephone [facility] [address] [facility] [address] [facility] [place] [phone] Oni Womack MD Patient Requested Call; Results 04/05/2024 2:56 PM SKIP TRACER - 04/05/2024 11:59 PM SKIP TRACER Hospital Encounter [facility] - MRI [address] [facility] [address] [place] [address] Oni Womack MD Discharge Disposition: Home or Self Care 03/30/2024 2:50 PM SKIP TRACER Office Visit [facility] [address] [facility] [address] [place] [phone] Oni Womack MD Gait difficulty (Primary Dx); [...] Comments Blood Pressure 138/67 04/19/2024 3:13 PM SKIP TRACER Pulse 109 04/19/2024 3:13 PM SKIP TRACER Temperature 36.7 ??C (98.1 ??F) 08/14/2019 7:35 AM CD T Respiratory Rate 16 04/19/2024 3:13 PM SKIP TRACER Oxygen Saturation 94% 04/19/2024 3:13 PM SKIP TRACER Inhaled Oxygen Concentration - - Weight 85.3 kg (188 lb) 03/30/2024 1:38 PM SKIP TRACER Height 165.1 cm (5' 5 ) 03/30/2024 1:38 PM SKIP TRACER Body Mass Index 31.28 03/30/2024 1:38 PM SKIP TRACER Functional Status Functional Status Response Date of [...] on file Medical Devices Implanted Type Area General Ophthalmologist Device Identifier Shelf Expiration Date Model / Serial / Lot Juan Bone [employer]-G Hv 40/20 Implanted:Qty: 1 on 08/12/2019 by Porfirio Tai MD at [facility] Right: Knee [employer] 01/04/2021 [id number] / / [id number] Cmpnt Fem Kn Rt Cr Cmnt Prm Vngrd Intlk Implanted:Qty: 1 on 08/12/2019 by Porfirio Tai MD at [facility] Right: Knee [employer] 04/30/2029 [id number] / / [id number] Cmpnt Ptlr 28mm 1 Pg Wire Ascnt Arcm Kn Implanted:Qty: 1 on 08/12/2019 by Porfirio Tai MD at [facility] Right: Knee [employer] 06/30/2024 [id number] / / [id number] Tray Tib 75mm Kn Cocr I Beam Implanted:Qty: 1 on 08/12/2019 by Porfirio Tai MD at [facility] Right: Knee [employer] 07/06/2029 [id number] / / [id number] Brng 10qbp91wm Vngrd Arcm Kn Ant Stab Implanted:Qty: 1 on 08/12/2019 by Porfirio Tai MD at [facility] Right: Knee [employer] 12/14/2022 [id number] / / [id number] Procedures Procedure Name Priority Date/Time Associated Diagnosis Comments PAIN MANAGEMENT PROCEDURE TIME Routine 04/19/2024 3:13 PM SKIP TRACER Disorder of sacrum MRI LUMBAR SPINE WO CONTRAST Routine 04/05/2024 4:25 PM SKIP TRACER Gait difficulty Spinal stenosis of lumbar region, unspecified whether neurogenic claudication present HNP (herniated nucleus pulposus), lumbar Lumbosacral radiculitis from Last 3 Months Results * PAIN MANAGEMENT PROCEDURE TIME (04/19/2024 3:13 PM SKIP TRACER) Anatomical Region Laterality Modality X-Ray Angiograph y Narrative 04/19/2024 5:11 PM SKIP TRACER Oni Womack MD ? 04/19/2024 ??5:13 PM Transforaminal Right L5 ,S1 Selective Nerve Root Injection Sylvia Sullivan [id number] 04/19/2024 Allergies Allergen Reactions Pcn [Penicillins] ?? [...] a routine sterile fashion using chloroprep. Responsible commercial collections driver not needed as the patient is [...] to home. Patient survey given. Procedure codes: 62718,50676 Pre VAS 01/02 Post VAS 01/02 Oni Womack MD Oni Womack MD DIAGNOSTIC IMAGING O RDERABLES * MRI Lumbar Spine Wo Contrast (04/05/2024 4:25 PM SKIP TRACER) Anatomical Region Laterality Modality Spine Magnetic Resonan ce 04/05/2024 4:56 PM SKIP TRACER Impressions 04/06/2024 12:40 PM SKIP TRACER IMPRESSION: MODERATE TO SEVERE RIGHT AND MODERATE LEFT FORAMINAL STENOSIS AT L5-S1. MODERATE CANAL AND BILATERAL LATERAL RECESS STENOSIS AT L4-L5. 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 ADDITIONAL MULTILEVEL SPONDYLITIC DISEASE DISCUSSED ABOVE. Edited by Ebony Zavala on 04/06/2024 8:19 AM > Interpreting Provider: Shani Myles MD on 04/06/2024 12:40 PM Narrative 04/06/2024 12:40 PM SKIP TRACER PROCEDURE: ??MRI LUMBAR SPINE WO CONTRAST DATE/TIME [...] 11:04 AM 08/14/2019 2:07 PM Care Teams Beauty Artist Relationship Specialty Start Date End Date Tay Gastelum MD [address] [place] [phone] PCP - General Family Medicine 04/06/18 [place] [address] [place] [address] Orthopedic Surgery 10/03/14 [place] [address] [place] [address] Physical Medicine and Rehabilitation 02/23/24
--- NOTE | 2024-06-26 23:25 | ED_ITS ---
HPI - URI/Sore Throat General Chief Complaint: Weakness Stated Complaint: weakness Time Seen by Provider: 06/26/24 21:42 Source: patient Mode of arrival: ambulatory Limitations: no limitations History of Present Illness HPI Narrative: This is an 83-year-old female that presents the emergency department for cold symptoms. Present over the last 2 days. Reports cough, congestion, fatigue. Seen at urgent care with negative influenza and covid tests Related Data Home Medications ?Medication ?Instructions ?Recorded ?Confirmed ?Last Taken ?Type vitamin B complex (B 1 tablet PO DAILY 04/05/20 05/28/24 Unknown History Complex-Vitamin B12 tablet) celecoxib 200 mg capsule 200 mg PO DAILY 12/08/23 05/28/24 Unknown History cholecalciferol (vitamin D3) 125 125 mcg PO DAILY 12/08/23 05/28/24 Unknown History mcg (5,000 unit) capsule Allergies Allergy/AdvReac Type Severity Reaction Status Date / Time Cephalosporins Allergy Intermediate Hives Verified 06/26/24 20:08 Penicillins Allergy Intermediate Hives Verified 06/26/24 20:08 cefpodoxime AdvReac Intermediate C diff Verified 06/26/24 20:08 levofloxacin (From Levaquin) AdvReac Mild Weakness Verified 06/26/24 20:08 Review of Systems 2 Review of Systems: CONSTITUTIONAL: Reports fever ENT: Reports rhinorrhea, congestion RESPIRATORY: Reports cough and dyspnea. All systems reviewed & are unremarkable except as noted in HPI and below PMFSH Past Medical History Medical History Osteopenia Arthritis Essential (primary) hypertension History of Clostridium difficile infection Dyslipidemia Unspecified osteoarthritis, unspecified site Hx of gastric ulcer Chronic interstitial lung disease Hx of small bowel obstruction Vitamin B12 deficiency Recurrent herpes labialis Surgical History Surgical History History of sinus surgery 1995 History of cholecystectomy 1970 History of right knee joint replacement 07/2019 Family History Family History Father Family history of Parkinson's disease, Onset Age: 85 Sibling Family history of type 1 diabetes mellitus, Onset Age: 36 Other Diabetes mellitus Family history of arthritis Social History Social History Social History: Sylvia is , retired [employer], worked full-time until age 83. Smoking status: Never smoker Second hand tobacco smoke exposure: No Alcohol intake: current Drinks per week: 3 Alcohol use details: 1 glass of wine consumed occasionally Substance use: never Substance use type: does not use Lack of Transportation: No Lack of Food: Never True Current Housing: I Have Housing Concerned About Future Housing: No Difficulty Paying Gas/Electric Bills: No Difficulty Paying for Meds: No Currently Unemployed: No Difficulty w/ Childcare or Family Care: No Gender identity (if verbalized by the patient): Female Spiritual care concerns: No Exam 2 Narrative: GENERAL: Well-appearing, well-nourished, and in no acute distress. HEAD: Normocephalic, atraumatic. EYES: EOMI. ENT: Nares clear, no rhinorrhea or epistaxis. Mucous membranes moist. Oropharynx without tonsillar hypertrophy exudate or other lesions. Bilateral TMs pearly groves non-bulging NECK: Supple. No adenopathy or masses. CHEST: No respiratory distress. Rales in the left lower lobe. No wheezes or rhonchi HEART: Regular rate and rhythm. No murmur heard. Normal peripheral pulses. EXTREMITIES: Normal range of motion. No edema. SKIN: Warm, dry, no rash. NEURO: No focal deficits. Alert and oriented x3. PSYCH: Normal mood and affect Course Course Emergency Course: patient updated on her workup and agrees with plan of care. We spoke about further inpatient treatment versus outpatient management with oral antibiotics. Patient would like to trial outpatient treatment Vital Signs Vital signs: Vital Signs Temperature 97.2 F L 06/26/24 20:14 Pulse Rate 98 06/26/24 20:14 Respiratory Rate 22 H 06/26/24 20:14 Blood Pressure 166/80 H 06/26/24 20:14 Pulse Oximetry 95 06/26/24 20:14 Oxygen Delivery Nasal Cannula 06/26/24 20:14 Oxygen Flow Rate 2 06/26/24 20:14 Temperature 97.2 F L 06/26/24 20:14 Pulse Rate 92 06/26/24 23:53 Respiratory Rate 17 06/26/24 23:53 Blood Pressure 152/90 H 06/26/24 23:53 Pulse Oximetry 95 06/26/24 23:53 Oxygen Delivery Nasal Cannula 06/26/24 20:14 Oxygen Flow Rate 2 06/26/24 20:14 MDM - URI/Sore Throat MDM Narrative Medical decision making narrative: Patient presents to the emergency department for cold symptoms present over the last couple of days. She is afebrile and nontoxic appearing. Her vitals are stable. Cbc without leukocytosis. Shows normocytic anemia hemoglobin of 11.6. Metabolic panel without concerning findings. EKG without concerning changes and baseline troponin is negative. Chest x-ray shows likely pneumonia. patient updated on her workup and agrees with plan of care. We spoke about further inpatient treatment versus outpatient management with oral antibiotics. Patient would like to trial outpatient treatment. Based on her allergy she will be started on doxycycline. She was given warnings to return to the ER Differential Diagnosis Differential diagnosis: Likely upper respiratory infection, sinusitis, viral infection, bronchitis, influenza and other (pneumonia) Lab Data Attestation: I reviewed the patient's lab results. 06/26/24 05:45 06/26/24 21:27 Labs: Lab Results 06/26/24 06/26/24 Range/Units 05:45 21:27 WBC 10.0 (4.5-10.0) K/mm3 RBC 3.69 L (4.2-5.4) M/mm3 Hgb 11.6 L (12.0-15.0) g/dL Hct 36.5 L (37.0-47.0) % MCV 98.9 (80-100) fl MCH 31.4 (26-34) pg MCHC 31.8 L (32-36) g/dl RDW 13.2 (11.5-14.5) % Plt Count 375 (150-375) k/mm3 MPV 8.5 (7.4-10.4) fl Immature Gran % (Auto) 0.3 (0-0.5) % Neut % (Auto) 76.4 H (45.5-73.1) % Lymph % (Auto) 6.9 L (18.3-44.2) % Adams % (Auto) 8.1 (2.6-8.5) % Eos % (Auto) 7.6 H (0-4.4) % Baso % (Auto) 0.7 (0.2-1.2) % Lymph # (Auto) 0.69 L (0.9-3.2) K/mm3 Adams # (Auto) 0.8 H (0.1-0.6) K/mm3 Eos # (Auto) 0.8 H (0-0.3) K/mm3 Baso # (Auto) 0.1 (0.0-0.1) K/mm3 Abs Immat Gran (auto) 0.03 (0.00-0.031) K/mm3 Absolute Neuts (auto) 7.6 H (1.3-6.7) K/mm3 Absolute Nucleated RBC 0.000 (0.0-0.012) K/mm3 Nucleated RBC % 0.0 (0.0-0.2) % PT 13.5 (11.1-14.7) Seconds INR 1.0 APTT 28.8 (22.3-36.8) Seconds Sodium 137 (137-145) mmol/L Potassium 4.4 (3.4-5.0) mmol/L Chloride 100 (98-107) mmol/L Carbon Dioxide 29 (22-30) mmol/L Anion Gap 8 (4-12) mmol/L BUN 16 (7-17) mg/dL Creatinine 0.98 (0.7-1.0) mg/dL Estim Creat Clear Calc 38 ml/min Estimated GFR 54 L (59 - ) Glucose 121 H (65-110) mg/dL Calcium 9.9 (8.4-10.2) mg/dL Total Bilirubin 0.7 (0.2-1.3) mg/dL AST 29 (14-36) U/L ALT 11 (6-35) U/L Alkaline Phosphatase 60 (38-126) U/L Troponin I < 0.012 (0.000-0.034) ng/mL Total Protein 9.0 H (6.3-8.2) g/dL Albumin 4.5 (3.5-5.1) g/dL Lipase 85 (23-300) U/L Imaging Data Radiologist's impression: ITS Impressions Chest X-Ray 06/26/24 21:20 IMPRESSION: Segmental, probably lingular airspace disease may represent atelectasis or pneumonia. ECG Data EKG #1: ECG completion date: 06/26/24 EKG Interpretation: normal rate, sinus rhythm, no ST changes and normal QT Critical Care Time Critical Care Time Critical Care Time: No Discharge Plan Discharge Clinical Impression: Pneumonia Qualifiers: Pneumonia type: due to unspecified organism Laterality: left Lung location: l ower lobe of lung Qualified Code(s): J18.9 - Pneumonia, unspecified organism Patient Disposition: Home, Self-Care Condition: Stable Instructions: Antibiotic Form, Community Acquired Pneumonia (ED) Additional Instructions: Return to the emergency department for worsening symptoms, or any other concerns Remain well-hydrated, get plenty of rest. Take Tylenol or Motrin [id number] for pain as needed. Flonase for nasal congestion. Zyrtec for runny nose. Take oral antibiotic (Doxycycline) as prescribed Follow up with primary care doctor Patient Language: Bulgarian Prescriptions: New doxycycline hyclate 100 mg tablet 100 mg PO BID 5 Days Qty: 10 0RF ondansetron 4 mg tablet,disintegrating 4 mg PO Q8H PRN (Reason: nausea and vomiting) Qty: 10 0RF No Action vitamin B complex [B Complex-Vitamin B12] Tablet 1 tablet PO DAILY cholecalciferol (vitamin D3) 125 mcg (5,000 unit) capsule 125 mcg PO DAILY celecoxib 200 mg capsule 200 mg PO DAILY rosuvastatin 10 mg tablet 10 mg PO DAILY Qty: 90 1RF albuterol sulfate 90 mcg/actuation HFA aerosol inhaler See Rx Instructions .ROUTE .COMPLEX Qty: 8.5 1RF Dose Instruction: INHALE 1 TO 2 PUFFS BY MOUTH EVERY 4 TO 6 HOURS NEEDED FOR SHORTNESS OF BREATH OR WHEEZING Rx Instructions: INHALE 1 TO 2 PUFFS BY MOUTH EVERY 4 TO 6 HOURS NEEDED FOR SHORTNESS OF BREATH OR WHEEZING pantoprazole 40 mg tablet,delayed release (DR/EC) 40 mg PO QAM Qty: 90 1RF diltiazem HCl [Cardizem CD] 120 mg capsule,extended release 24hr 120 mg PO DAILY Qty: 90 1RF Follow-up/Referrals: Jason Gastelum MD [Primary Care Provider] -
[2024-06-26] MEDS: DOXYCYCLINE HYCLATE 100 MG TABLET PO (23:43)
[2024-06-26 23:53] VITALS: BP 152/90; PULSE 92; RESP 17; O2SAT 95
== END 2024-06-26 23:54 | disposition home or self-care (01) ==
PROVIDERS: Emergency Medicine; Emergency Provider Physician Assistant; PCP Family Medicine
DX: J18.9 Pneumonia, unspecified organism (principal); I10 Essential (primary) hypertension; E78.49 Other hyperlipidemia; E53.8 Deficiency of other specified B group vitamins
CPT/HCPCS: 36415; 71046; 80053; 83690; 84484; 85025; 85610; 85730; 93005; 99284; A9270

== ENCOUNTER 2024-07-08 10:48 | Outpatient (CLI) | payer MEDICARE, BC, OTHER, SELFPAY ==
--- OUTSIDE RECORDS SUMMARY | 2024-07-08 11:04 | XMS_ITS | Referral Summary ---
Author Organization [facility] Address [address] [place] [address] Care Team Providers Care Outreach Associate Name Role Phone Pofririo Tai MD Unavailable [phone] Tay Gastelum MD Primary Care Provider Oni Womack MD Unavailable [phone] Source Comments [facility],non-[facility] Affiliates and Associated Physician Practices is amultiple site organization consisting of ambulatory clinics and hospital sitesin [place], [place], [place] and [place]. This disclosure is being madepursuant to the Care Everywhere program and may not contain all information available regarding this patient. Last updated 18.[facility] Encounters Date Type Department Care Team Description 04/19/2024 2:30 PM PATIENT CARE TECHNICIAN INSTRUCTOR - 04/19/2024 11:59 PM PATIENT CARE TECHNICIAN INSTRUCTOR Hospital Encounter [facility] [address] [place] [id number] Oni Womack MD Discharge Disposition: Home or Self Care 04/19/2024 2:28 PM PATIENT CARE TECHNICIAN INSTRUCTOR - 04/19/2024 2:29 PM PATIENT CARE TECHNICIAN INSTRUCTOR Hospital Encounter [facility] [address] [place], [place] [id number] Oni Womack MD Discharge Disposition: Home or Self Care 04/19/2024 2:30 PM PATIENT CARE TECHNICIAN INSTRUCTOR Office Visit [facility] [id number] [place] [phone] Oni Womack MD Spinal stenosis of lumbar region, unspecified whether neurogenic claudication present (Primary Dx); HNP (herniated nucleus pulposus), lumbar; Lumbosacral radiculitis; Gait difficulty 04/07/2024 Telephone [facility] [address] [place] [address] Oni Womack MD Question from Last 3 Months Allergies Active Allergy [...] Comments Blood Pressure 138/67 04/19/2024 3:13 PM PATIENT CARE TECHNICIAN INSTRUCTOR Pulse 109 04/19/2024 3:13 PM PATIENT CARE TECHNICIAN INSTRUCTOR Temperature 36.7 C (98.1 F) 08/14/2019 7:35 AM CDT Respiratory Rate 16 04/19/2024 3:13 PM PATIENT CARE TECHNICIAN INSTRUCTOR Oxygen Saturation 94% 04/19/2024 3:13 PM PATIENT CARE TECHNICIAN INSTRUCTOR Inhaled Oxygen Concentration - - Weight 85.3 kg (188 lb) 03/30/2024 1:38 PM PATIENT CARE TECHNICIAN INSTRUCTOR Height 165.1 cm (5' 5 ) 03/30/2024 1:38 PM PATIENT CARE TECHNICIAN INSTRUCTOR Body Mass Index 31.28 03/30/2024 1:38 PM PATIENT CARE TECHNICIAN INSTRUCTOR Functional Status Functional Status Response Date of [...] on file Medical Devices Implanted Type Area Hunter Skin Diver Device Identifier Shelf Expiration Date Model / Serial / Lot Juan Bone [place] Hv 40/20 Implanted:Qty: 1 on 08/12/2019 by Porfirio Tai MD at [facility] Right: Knee [employer] 01/04/2021 [id number] / / [id number] Cmpnt Fem Kn Rt Cr Cmnt Prm Vngrd Intlk Implanted:Qty: 1 on 08/12/2019 by Porfirio Tai MD at [facility] Right: Knee [employer] 04/30/2029 [id number] / / [id number] Cmpnt Ptlr 28mm 1 Pg Wire Ascnt Arcm Kn Implanted:Qty: 1 on 08/12/2019 by Porfirio Tai MD at [facility] Right: Knee [employer] 06/30/2024 [id number] / / [id number] Tray Tib 75mm Kn Cocr I Beam Implanted:Qty: 1 on 08/12/2019 by Porfirio Tai MD at [facility] Right: Knee [employer] 07/06/2029 [id number] / / [id number] Brng [id number] Vngrd Arcm Kn Ant Stab Implanted:Qty: 1 on 08/12/2019 by Porfirio Tai MD at [facility] Right: Knee [employer] 12/14/2022 [id number] / / [id number] Procedures Procedure Name Priority Date/Time Associated Diagnosis Comments PAIN MANAGEMENT PROCEDURE TIME Routine 04/19/2024 3:13 PM PATIENT CARE TECHNICIAN INSTRUCTOR Disorder of sacrum from Last 3 Months Results * PAIN MANAGEMENT PROCEDURE TIME (04/19/2024 3:13 PM PATIENT CARE TECHNICIAN INSTRUCTOR) Anatomical Region Laterality Modality X-Ray Angiograph y Narrative 04/19/2024 5:11 PM PATIENT CARE TECHNICIAN INSTRUCTOR Oni Womack MD 04/19/2024 5:13 PM Transforaminal Right L5 ,S1 Selective Nerve Root Injection Sylvia Sullivan [id number] 04/19/2024 Allergies Allergen Reactions Pcn [Penicillins] Vantin [Cefpodoxime] Procedure: Transforaminal Right L5,S1 Selective Nerve Root Steroid Injection Under Fluoroscopy Indication for Procedure: Radicular pain in the lower extremity/Lumbar stenosis/Lumbar HNP/Lumbar foraminal stenosis. M54.16 Informed Consent: After the patient, Sylvia Sullivan, was informed of the risks and benefits of the procedure and all questions were answered, the consent was signed. Prep:Patient identified, proper procedure and site verified, marked by Dr. Luz. In the prone position,right L5 pedicle, and transverse process,S1 foramen were identified under fluoroscopy and marked on the patient's skin. The skin was prepped in a routine sterile fashion using chloroprep. Responsible driver operator not needed as the patient [...] ml of Dexamethasone 10 mg per ml and 3.0 ml of normal saline (preservative free) [...] ml of Dexamethasone 10 mg per ml and 3.0 ml of normal saline (preservative free) [...] to home. Patient survey given. Procedure codes: 79120,88555 Pre VAS 8/10 Post VAS 8/10 Oni Womack MD Oni Womack MD DIAGNOSTIC IMAGING O RDERABLES from Last 3 Months Administered Medications Advance Directives * Full Code (Latest Code Status on File) Date Activated Date Inactivated Comments 08/12/2019 11:04 AM 08/14/2019 2:07 PM Care Teams Outreach Associate Relationship Specialty Start Date End Date Tay Gastelum MD [address] [place] [phone] PCP - General Family Medicine 04/06/18 [place] [id number] [place] [address] Orthopedic Surgery 10/03/14 [place] [address] [address] [place] [id number] Physical Medicine and Rehabilitation 02/23/24
--- OUTSIDE RECORDS SUMMARY | 2024-07-08 11:04 | XMS_ITS | Continuity of Care Document ---
Author Organization [facility] [place] Address [address] Ariza [address] [place] [phone] Phone Care Team Providers Care Molding Associate Name Role Phone Meredith Bertrand Unavailable Unavailable Procedures Procedure Date After Cataract Laser Surgery Office/outpatient Visit, Est Office/outpatient Visit, Est Vision Svcs Frames Purchases TF Plastic Sphcyl Madison To +/-4d .12-2d Progressive Lens Per Lens Anti-reflective Coating Frames Deluxe Progressive Lens, Polycarb Anti-reflective Coating Post-op Follow-up Visit Post-op Follow-up Visit Post-op Follow-up Visit Remove Cataract, Insert Lens Eye Exam Established Pt [facility] Office/outpatient Visit, Est Office/outpatient Visit, Est Optic Nerve Head Eval Visual Functional Status Assessed TF Plastic Sphcyl Madison To +/-4d .12-2d Oct- Vision Svcs Frames [...] Diagnoses Date Provider Providers Copied on Encounter [facility], [address] [place] [address] [address], [place], [place], [address], tel:[phone] [facility] No Information 201 0 Elza Juann. [address] [facility] [address] [facility] , [address], [place], [place], [facility], . tel:[phone] Office/outpat ient Visit, [facility] [address] [place] [address] [address], [place], [place], [address], tel:[phone] [facility] No Information 0 Elza Harper. [address] [facility] , [address], [place], [place], [facility], [place]. tel:[phone] Office/outpat ient Visit, [facility] [place] [address] [place] [address] [address], [place], [place], [address], [place] tel:[phone] [facility] No Information 5-200 9 Elza Solis [address] [facility] , [address], [place], [place], [facility], . tel:[phone] [facility], [address] [place] [address] [address], [place], [place], [address], [place] tel:[phone] [facility] No Information 9 [employer] [facility] . [address] [facility], [address], [place], [place], [address], [place]. tel:[phone] Referring Provider: Meredith Braswell, [address], [place], [place], [facility]. tel:[phone] [facility], [address], [place], [place], [address], [place] tel:[phone] [facility] No Information 9 [employer] . [address] [facility], [address], [place], [place], [address], [place]. tel:[phone] [facility], [address], [place], [place], [address], [place] tel:[phone] [facility] No Information 9 Elza Harper. [address] , [address], [place], [facility], [place]. tel:[phone] [facility], [address], [place], [place], [address], [place] tel:[phone] [facility] No Information 9 Elza Solis [address] , [address], [place], [facility], [place]. tel:[phone] [facility], [address], [place], [place], [address], [place] tel:[phone] [facility] No Information 9 Elza Solis [address] , [address], [place], [facility], [place]. tel:[phone] [facility], [address], [place], [place], [address], [place] tel:[phone] [facility] No Information Messi-0 7-200 9 Elza Harper. [address] , [address], [place], [facility], [place]. tel:[phone] [facility], [address], [place], [place], [address], [place] tel:[phone] [facility] No Information Dec-3 0-200 8 Elza Solis [address] , [address], [place], [facility], [place]. tel:[phone] Referring Provider: Meredith Braswell, [address], [place], [facility]. tel:[phone] Office/outpat ient Visit, [facility], [address] [place] [address] [address], [place], [place], [address], [place] tel:[phone] [facility] No Information Bertrand-0 3-200 8 Elza Harper. [address] [facility] , [address], [place], [facility], [place]. tel:[phone] Office/outpat ient Visit, [facility], [address] [place] [address] [address], [place], [place], [address], [place] tel:[phone] [facility] No Information Dec-0 4-200 7 Elza Solis [address] , [address], [place], [facility], [place]. tel:[phone] [facility], [address] [place] [address] [address], [place], [place], [address], [place] tel:[phone] [facility] No Information Oct-1 5-200 7 [facility] . [address] [facility], [address], [place], [place], [address], [place]. tel:[phone] Referring Provider: Meredith Braswell, [address], [place], [facility]. tel:[phone] [facility], [address], [place], [place], [address], [place] tel:[phone] [facility] No Information Oct-0 5-200 7 Bertrand Meredith. [address], [place], [facility], [place]. tel:[phone] [facility], [address] [place] [address] [address], [place], [place], [address], [place] tel:[phone] [facility] No Information Sep-1 4-200 7 Bertrand Meredith. [address] , [address], [place], [facility], [place]. tel:[phone] [facility], [address], [place], [place], [address], [place] tel:[phone] [facility] No Information Sep-1 1-200 7 Bertrand Meredith. [address] , [address], [place], [facility], [place]. tel:[phone] [facility], [address] [place] [address] [address], [place], [place], [address], [place] tel:[phone] [facility] No Information Sep-0 7-200 7 Bertrand Meredith. [address] , [address], [place], [facility], [place]. tel:[phone] [facility], [address] [place] [address] [address], [place], [place], [address], [place] tel:[phone] [facility] No Information Sep-0 6-200 7 Bertrand Meredith. [address] , [address], [place], [facility], [place]. tel:[phone] [facility], [address], [place], [place], [address], [place] tel:[phone] [facility] No Information 7 Elza Solis [address] [facility] [address] , [address], [place], [facility], [place]. tel:[phone] Office/outpat ient Visit, [facility] [address], [place], [place], [address], [place] tel:[phone] [facility] No Information 7 Elza Solis [address] [facility] [address] , [address], [place], [facility], [place]. tel:[phone] Referring Provider: Meredith Braswell, [address] [facility] [address], [place], [facility]. tel:[phone] Office/outpat ient Visit, [facility] [address], [place], [place], [address], [place] tel:[phone] [facility] No Information 7 Holly Yoder. [address] [facility], [address], [place], [place], [address], [place]. tel:[phone] [facility], [address], [place], [place], [address], [place] tel:[phone] [facility] No Information 7 Elza Solis [address] [facility] [address] , [address], [place], [facility], [place]. tel:[phone] Family History Family Member Type Diagnosis Age At Onset No Information Payers Payer name Insurance type Covered libertarian ID Authoriza tion(s) Medicare [id number] Social History Type Description Quantity Date Captured [...]
--- OUTSIDE RECORDS SUMMARY | 2024-07-08 11:04 | XMS_ITS | Patient Health Summary ---
Author Organization [facility] Address [address] [place] [address] Care Team Providers Care Touch Up Carver Name Role Phone Porfirio Tai MD Unavailable [phone] Tay Gastelum MD Primary Care Provider Oni Womack MD Unavailable [phone] Note from [facility],non-owned Affiliates and Associated Physician Practices is amultiple site organization consisting of ambulatory clinics and hospital sitesin [place], [place], [place] and [place]. This disclosure is being madepursuant to the Care Everywhere program and may not contain all information available regarding this patient. Last updated 18.[facility] Allergies * Penicillins * Cefpodoxime Medications * [...] Comments Blood Pressure 138/67 04/19/2024 3:13 PM CLOTH FOLDER HAND Pulse 109 04/19/2024 3:13 PM CLOTH FOLDER HAND Temperature 36.7 C (98.1 F) 08/14/2019 7:35 AM CDT Respiratory Rate 16 04/19/2024 3:13 PM CLOTH FOLDER HAND Oxygen Saturation 94% 04/19/2024 3:13 PM CLOTH FOLDER HAND Inhaled Oxygen Concentration - - Weight 85.3 kg (188 lb) 03/30/2024 1:38 PM CLOTH FOLDER HAND Height 165.1 cm (5' 5 ) 03/30/2024 1:38 PM CLOTH FOLDER HAND Body Mass Index 31.28 03/30/2024 1:38 PM CLOTH FOLDER HAND Medical Devices Implanted Type Area Cd Storage And Materials Make Up Helper Device Identifier Shelf Expiration Date Model / Serial / Lot Juan Bone [place]-G Hv 40/ Implanted:Qty: 1 on 08/12/2019 by Porfirio Tai MD at [facility] Right: Knee [employer] 01/04/2021 600-15-100 / / [id number] Cmpnt Fem Kn Rt Cr Cmnt Prm Vngrd Intlk Implanted:Qty: 1 on 08/12/2019 by Porfirio Tai MD at [facility] Right: Knee [employer] 04/30/2029 [id number] / / [id number] Cmpnt Ptlr 28mm 1 Pg Wire Ascnt Arcm Kn Implanted:Qty: 1 on 08/12/2019 by Porfirio Tai MD at [facility] Right: Knee [employer] 06/30/2024 [id number] / / [id number] Tray Tib 75mm Kn Cocr I Beam Implanted:Qty: 1 on 08/12/2019 by Porfirio Tai MD at [facility] Right: Knee [employer] 07/06/2029 [id number] / / [id number] 06fts11ep Vngrd Arcm Kn Ant Stab Implanted:Qty: 1 on 08/12/2019 by Porfirio Tai MD at [facility] Right: Knee [employer] 12/14/2022 [id number] / / [id number] Procedures * PAIN MANAGEMENT PROCEDURE TIME(Performed 04/19/2024) [...] PAIN MANAGEMENT PROCEDURE TIME (04/19/2024 3:13 PM CLOTH FOLDER HAND) Only the most recent of2 resultswithin the time period is included. Anatomical Region Laterality Modality X-Ray Angiograph y Narrative 04/19/2024 5:11 PM CLOTH FOLDER HAND Oni Womack MD 04/19/2024 5:13 PM Transforaminal Right L5 ,S1 Selective Nerve Root Injection Sylvia Sullivan [id number] 04/19/2024 Allergies Allergen Reactions Pcn [Penicillins] Vantin [...] a routine sterile fashion using chloroprep. 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 Patient survey given. 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 MODERATE CANAL AND BILATERAL LATERAL RECESS STENOSIS AT L4-L5. 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 ADDITIONAL MULTILEVEL SPONDYLITIC DISEASE DISCUSSED ABOVE. Edited by Ebony Zavala on 04/06/2024 8:19 AM > Interpreting Provider: Shani Myles MD on 04/06/2024 12:40 PM Narrative 04/06/2024 12:40 PM CLOTH FOLDER HAND PROCEDURE: MRI LUMBAR SPINE WO CONTRAST DATE/TIME [...] PM Narrative 02/23/2024 12:29 PM CDT PROCEDURE: XR LUMBAR SPINE 4VW OR MORE [...] disc space narrowing at L4-5. There is zrzvukfp-ql-cvuvme disc space narrowing at L5-S1. Severe disc [...] severe disc spacenarrowing at L4-5. There is dzyevxqh-st-rbgyeo disc space narrowing at L5-S1.Severe disc space [...] Left 3Vw (02/23/2024 9:03 AM CDT) Narrative [facility] [address] - 02/23/2024 9:03 AM CDT Please see progress note in Epic for results. Blaine Hawkins APRN-WORM PACKER DIAGNOSTI C IMAGING ORDERABLES [facility] [place] [address] * XR KNEE BILAT 3VW (03/14/2022 12:19 PM CDT) Only the most recent of2 resultswithin the time period is included. Anatomical Region Laterality Modality Lower Extremity Computed Radiogr aphy Narrative 03/14/2022 12:20 PM CDT Adele Posadas RT(R) 03/22/2022 5:01 PM See progress notes for results Jose Luis Caceres PAMaynor DIAGNOSTIC IMAGING ORDERABLES * XR KNEE RIGHT 3VW (04/25/2020 10:01 AM CLOTH FOLDER HAND) Only the most recent of4 resultswithin the time period is included. Anatomical Region Laterality Modality Lower Extremity Computed Radiogr aphy Narrative 04/25/2020 10:05 AM CLOTH FOLDER HAND Adele Posadas, RT(R) 05/08/2020 5:10 PM See progress notes for results Porfirio Tai MD DIAGNOSTIC IMAGING O RDERABLES * (ABNORMAL) HGB HCT PANEL (08/14/2019 2:19 AM CDT) Only the most recent of2 resultswithin the time period is included. Hemoglobin 10.5(L) 12.0 - 15.6 gm/dL 08/14/2019 2:54 AM CDT [facility] Hematocrit 33.0(L) 35.9 - 45.5 % 08/14/2019 2:54 AM CDT [facility] Blood BLOOD SPECIMEN / Unknown Venipuncture / Unknown 08/14/2019 2:19 AM CDT 08/14/2019 2:48 AM CDT Porfirio Tai MD LAB - HEMATOLOGY ORD ERABLES [facility] [address] [place] [address] * Neuraxial Block (08/12/2019 8:30 AM CDT) Narrative Roger Tafoya, JORDY-BILINGUAL BRANCH MANAGER - 08/12/2019 8:30 AM CDT Roger Tafoya, JORDY-BILINGUAL BRANCH MANAGER 08/12/2019 8:31 AM Neuraxial Block Note Pre-Procedure: Procedure Name: Neuraxial Block Patient Location: OR Indications: surgical anesthesia Pre-Anesthetic Checklist: Patient identified, IV Checked, Risks and benefits discussed, Surgical consent verified, Monitors and equipment, Site examined, Pre-op evaluation done, Informed consent obtained, Questions answered/anesthesia questions answered and Allergies reviewed Anticoagulation/ Anti-thrombosis status confirmed? Yes Supplemental O2: room air Monitors: BP and continuous pluse ox Patient Condition: sedated, meaningful contact maintained throughout procedure Patient Sedated? Nursing sedation administration Sedation Type: mild Sedation Agents (manual): versed fentanyl mL Procedure: Block Type: Spinal Prep: Betadine Sterile Field: mask, cap/hat, sterile established and sterile gloves Approach: midline Skin was localized? Nursing documentation on [facility] Skin localized with: Lidocaine 1% and 1 mL Spinal Block: Needle Type: spinal needle Needle Gauge: 22 Needle Length: 90 mm Placement Site: L3-4 Number of Attempts: 1 CSF: free flow, aspiration before injection Local anesthetics used? Nursing documentation on the [facility] Spinal Local Anesthetic: Bupivacaine: 0.75% in dextrose 2 mL Degree of difficulty: none Procedure Tolerance: tolerated well performed while the patient was sedated Sensory Level: T8 Motor Blockade: Yes Position post procedure: supine Vital Signs: Vital signs monitored and stable throughout. See anesthesia record for details. Start Time: 08/12/2019 8:06 AM End Time: 08/12/2019 8:14 AM Total Time: 8 Staff: Anesthesia Provider: Roger Tafoya APRN-BILINGUAL BRANCH MANAGER - performed the procedure Luis Corona DO GENERAL ANESTHESIA O RDERABLES * EKG 12-LEAD (07/12/2019 3:36 PM CLOTH FOLDER HAND) Ventricular Rate 75 BPM [facility] Atrial Rate 75 BPM [facility] P-R Interval 136 ms [facility] QRS Duration ms 80 ms [facility] Q-T Interval ms 398 ms [facility] QTC Calculation (Bezet) 444 ms [facility] Calculated P [place] 37 degrees [facility] Calculated R [place] -27 degrees [facility] Calculated T [place] 50 degrees [facility] Interpretation EKG Normal sinus rhythm Possible Left atrial enlargement Borderline ECG When compared with ECG of 21-SEP-2008 11:55, No significant change was found Confirmed by FEDERICO SANTANA, LU ([id number]) on 07/13/2019 11:02:04 AM [facility] 07/12/2019 3:36 PM CLOTH FOLDER HAND 07/13/2019 11:02 AM CLOTH FOLDER HAND Luis Corona DO ECG ORDERABLES [facility] * CULTURE MSSA/MRSA (07/12/2019 3:32 PM CLOTH FOLDER HAND) Culture Negative for Staphylococcus aureus (MRSA/MSSA) 07/14/2019 7:25 AM CLOTH FOLDER HAND [facility] Microbiology SPECIMEN FROM NASAL FOSSAE / Unknown Collection / Unknown 07/12/2019 3:32 PM CLOTH FOLDER HAND 07/12/2019 4:28 PM CLOTH FOLDER HAND Aurora Lopez SENIOR SERVICE AIDE-WORM PACKER LAB - MICR OBIOLOGY ORDERABLES Performing Organization Address City/[facility] Co de Phone Number [facility] [address] [place], [address] [phone] * MRI KNEE RIGHT WO CONTRAST (06/03/2019 10:13 AM CLOTH FOLDER HAND) Anatomical Region Laterality Modality Lower Extremity Magnetic Resonan ce 06/03/2019 11:5 0 AM CLOTH FOLDER HAND Impressions 06/03/2019 12:02 PM CLOTH FOLDER HAND Joint effusion with loose body adjacent to the lateral aspect of the patella as described above Tricompartmental degenerative changes as above Chronic degradation of the medial lateral menisci with superimposed tears of the posterior horn of the medial meniscus and anterior horn of the lateral meniscus Reading Radiologist: Luis Hatch MD on 06/03/2019 at 12:02 PM Narrative 06/03/2019 12:02 PM CLOTH FOLDER HAND EXAM: MRI KNEE RIGHT WO CONTRAST*[id number] INDICATION: Right knee pain and swelling TECHNIQUE: [...] - 06/03/2019 EXAM: MRI KNEE RIGHT WO CONTRAST*[id number] INDICATION: Right knee pain and swelling TECHNIQUE: [...] 06/03/2019 at 12:02 PM Zoila James PA-C MR ORDERABLES * (ABNORMAL) D-DIMER (03/30/2019 11:15 PM CLOTH FOLDER HAND) D-Dimer 0.75(H) 0.27 - 0.5 ug/mL FEU 03/30/2019 11:47 PM CLOTH FOLDER HAND [facility] Blood BLOOD SPECIMEN / Unknown Venipuncture / Unknown 03/30/2019 11:15 PM CLOTH FOLDER HAND 03/30/2019 11:24 PM CLOTH FOLDER HAND Narrative [facility] - 03/30/2019 11:47 PM CLOTH FOLDER HAND The [employer] D-Dimer assay is intended for [...] clinical presentation, and other findings. Esther Daly SENIOR SERVICE AIDE-WORM PACKER LAB - [facility] ORDERABLES [facility] [address] [place] [address] * (ABNORMAL) CBC W AUTO DIFFERENTIAL (03/30/2019 11:15 PM CLOTH FOLDER HAND) WBC 7.4 4.4 - 10.7 x10E9/L 03/30/2019 11:36 PM CLOTH FOLDER HAND [facility] WBC Corrected 03/30/2019 11:36 PM [facility] RBC 4.23 3.80 - 5.20 x10E12/L 03/30/2019 11:36 PM [facility] Hemoglobin 13.2 12.0 - 15.6 gm/dL 03/30/2019 11:36 PM [facility] Hematocrit 41.4 35.9 - 45.5 % 03/30/2019 11:36 PM [facility] MCV 97.9 80.7 - 98.3 fl 03/30/2019 11:36 PM [facility] MCH 31.2 26.7 - 34.0 pg 03/30/2019 11:36 PM [facility] MCHC 31.9 30.8 - 35.9 gm/dL 03/30/2019 11:36 PM [facility] Platelet Count 262 153 - 416 x10E9/L 03/30/2019 11:36 PM [facility] RDW-CV 12.2 12.1 - 14.9 % 03/30/2019 11:36 PM [facility] MPV 9.0(L) 9.4 - 12.9 fl 03/30/2019 11:36 PM [facility] Neutrophils % 55.0 44.0 - 73.0 % 03/30/2019 11:36 PM [facility] Lymphocytes % 25.8 20.0 - 43.0 % 03/30/2019 11:36 PM [facility] Monocytes % 10.3 5.0 - 13.0 % 03/30/2019 11:36 PM [facility] Eosinophils % 7.7(H) 0.0 - 6.0 % 03/30/2019 11:36 PM [facility] Basophils % 0.9 0.0 - 2.0 % 03/30/2019 11:36 PM [facility] Immature Granulocytes 0.3 0 - 1 % 03/30/2019 11:36 PM [facility] Neutrophil Absolute 4.09 2.01 - 7.14 x10E9/L 03/30/2019 11:36 PM [facility] Lymphocytes Absolute 1.92 1.07 - 3.94 x10E9/L 03/30/2019 11:36 PM [facility] Monocytes Absolute 0.77 0.26 - 1.07 x10E9/L 03/30/2019 11:36 PM [facility] Eosinophils Absolute 0.57(H) 0 - 0.47 x10E9/L 03/30/2019 11:36 PM [facility] Basophils Absolute 0.07 0 - 0.08 x10E9/L 03/30/2019 11:36 PM [facility] Immature Granulocytes Absolute 0.02 0.00 - 0.06 x10E9/L 03/30/2019 11:36 PM [facility] nRBC Auto 0 /100 WBC 03/30/2019 11:36 PM [facility] Blood BLOOD SPECIMEN / Unknown Venipuncture / Unknown 03/30/2019 11:15 PM CLOTH FOLDER HAND 03/30/2019 11:24 PM CLOTH FOLDER HAND Esther Daly SENIOR SERVICE AIDE-WORM PACKER LAB - HEMAT OLOGY ORDERABLES [facility] [address] [place] [address] * COMPREHENSIVE METABOLIC PANEL (03/30/2019 11:15 PM CLOTH FOLDER HAND) Glucose 98 70 - 105 mg/dL 03/30/2019 11:42 PM [facility] Sodium 140 136 - 145 mmol/L 03/30/2019 11:42 PM [facility] Potassium 4.2 3.5 - 4.7 mmol/L 03/30/2019 11:42 PM [facility] Chloride 104 98 - 107 mmol/L 03/30/2019 11:42 PM [facility] CO2 26 23 - 31 mmol/L 03/30/2019 11:42 PM [facility] Calcium 9.5 8.4 - 10.4 mg/dL 03/30/2019 11:42 PM [facility] Anion Gap 10 8 - 16 mmol/L 03/30/2019 11:42 PM [facility] BUN 18 9.8 - 20.1 mg/dL 03/30/2019 11:42 PM [facility] Creatinine 0.83 0.57 - 1.11 mg/dL 03/30/2019 11:42 PM [facility] Alkaline Phosphatase 63 40 - 150 U/L 03/30/2019 11:42 PM [facility] ALT 13 0 - 61 U/L 03/30/2019 11:42 PM [facility] AST 20 5 - 34 U/L 03/30/2019 11:42 PM [facility] Protein Total 7.6 6.4 - 8.3 gm/dL 03/30/2019 11:42 PM [facility] Albumin 4.3 3.2 - 4.6 gm/dL 03/30/2019 11:42 PM [facility] Bilirubin Total 0.7 0.2 - 1.0 mg/dL 03/30/2019 11:42 PM [facility] eGFR by MDRD >60 mL/min/1.7 3m2 03/30/2019 11:42 PM [facility] eGFR by MDRD >60 mL/min/1.7 3m2 03/30/2019 11:42 PM CLOTH FOLDER HAND [facility] Blood BLOOD SPECIMEN / Unknown Venipuncture / Unknown 03/30/2019 11:15 PM CLOTH FOLDER HAND 03/30/2019 11:24 PM CLOTH FOLDER HAND Esther Daly SENIOR SERVICE AIDE-WORM PACKER LAB - CHEMI STRY ORDERABLES [facility] [address] [place] [address] * XR KNEE 4+ VW RIGHT (03/30/2019 6:58 PM CLOTH FOLDER HAND) Anatomical Region Laterality Modality Lower Extremity Radiographic Tracey ging 03/30/2019 7:07 PM CLOTH FOLDER HAND Impressions 03/30/2019 7:08 PM CLOTH FOLDER HAND Negative for fracture at this time. Please see above. This report was transcribed with a computerized speech recognition system. In an effort to expedite patient care, it has not been adjusted for typographical, grammatical or syntax problems by a trained clinical specialist medical device. For questions about the report, please contact the Radiology Department. Reading Radiologist: Rodrigo Villanueva MD on 03/30/2019 at 7:08 PM Narrative 03/30/2019 7:08 PM CLOTH FOLDER HAND Examination: Right knee 4 views . Indication: [...] grammatical or syntax problems by a trained clinical specialist medical device. For questions about the report, please contact the Radiology Department. Reading Radiologist: Rodrigo Villanueva MD on 03/30/2019 at 7:08 PM Esther Daly SENIOR SERVICE AIDE-WORM PACKER DIAGNOSTIC IMAGING ORDERABLES Care Teams Touch Up Carver Relationship Specialty Start Date End Date Tay Gastelum MD [address] [place] [address] PCP - General Family Medicine 04/06/18 [place] [address] [place] [address] Orthopedic Surgery 10/03/14 [place] [address] [place], [place] [id number] Physical Medicine and Rehabilitation 02/23/24
--- OUTSIDE RECORDS SUMMARY | 2024-07-08 11:04 | XMS_ITS | Clinical Summary ---
Author Organization [facility] Address [address] [place] [address] Care Team Providers Care Warp Dyeing Vat Tender Name Role Phone Porfirio Tai MD Unavailable Tay Gastelum MD Primary Care Provider Oni Womack MD Unavailable [phone] Source Comments [facility],non-owned Affiliates and Associated Physician Practices is amultiple site organization consisting of ambulatory clinics and hospital sitesin [place], [place], [place] and [place]. This disclosure is being madepursuant to the Care Everywhere program and may not contain all information available regarding this patient. Last updated 18.[facility] Allergies Active Allergy Reactions Criticality Noted Date [...] Department Care Team Description 04/19/2024 2:30 PM NARROW GAUGE ENGINEER - 04/19/2024 11:59 PM [facility] Hospital Encounter [address] [address] Oni Womack MD Discharge Disposition: Home or Self Care 04/19/2024 2:30 PM NARROW GAUGE ENGINEER Office Visit [address] [phone] Oni Womack MD Spinal stenosis of lumbar region, unspecified whether neurogenic claudication present (Primary Dx); HNP (herniated nucleus pulposus), lumbar; Lumbosacral radiculitis; Gait difficulty 04/19/2024 2:28 PM NARROW GAUGE ENGINEER - 04/19/2024 2:29 PM NARROW GAUGE ENGINEER Hospital Encounter [address] [address] Oni Womack MD Discharge Disposition: Home or Self Care 04/07/[address] [phone] Oni Womack MD Question from Last 3 Months Family History Medical [...] Comments Blood Pressure 138/67 04/19/2024 3:13 PM NARROW GAUGE ENGINEER Pulse 109 04/19/2024 3:13 PM NARROW GAUGE ENGINEER Temperature 36.7 C (98.1 F) 08/14/2019 7:35 AM CDT Respiratory Rate 16 04/19/2024 3:13 PM NARROW GAUGE ENGINEER Oxygen Saturation 94% 04/19/2024 3:13 PM NARROW GAUGE ENGINEER Inhaled Oxygen Concentration - - Weight 85.3 kg (188 lb) 03/30/2024 1:38 PM NARROW GAUGE ENGINEER Height 165.1 cm (5' 5 ) 03/30/2024 1:38 PM NARROW GAUGE ENGINEER Body Mass Index 31.28 03/30/2024 1:38 PM NARROW GAUGE ENGINEER Plan of Treatment Health Maintenance Due Date Last Done Comments BONE DENSITY TESTING 1940 MEDICARE AWV 12 MONTHS 1940 DTAP/TDAP/TD VACCINES (1 - [...] this topic Medical Devices Implanted Type Area Transport Aircrewman Device Identifier Shelf Expiration Date Model / Serial / Lot Juan Bone [place]-G Hv 40/20 Implanted:Qty: 1 on 08/12/2019 by Porfirio Tai MD at [facility] Right: Knee [employer] 01/04/2021 600-15-100 / / [id number] Cmpnt Fem Kn Rt Cr Cmnt Prm Vngrd Intlk Implanted:Qty: 1 on 08/12/2019 by Porfirio Tai MD at [facility] Right: Knee [employer] 04/30/2029 [id number] / / [id number] Cmpnt Ptlr 28mm 1 Pg Wire Ascnt Arcm Kn Implanted:Qty: 1 on 08/12/2019 by Porfirio Tai MD at [facility] Right: Knee [employer] 06/30/2024 [id number] / / [id number] Tray Tib 75mm Kn Cocr I Beam Implanted:Qty: 1 on 08/12/2019 by Porfirio Tai MD at [facility] Right: Knee [employer] 07/06/2029 [id number] / / [id number] Brng 28bsq16st Vngrd Arcm Kn Ant Stab Implanted:Qty: 1 on 08/12/2019 by Porfirio Tai MD at [facility] Right: Knee [employer] 12/14/2022 [id number] / / [id number] Procedures Procedure Name Priority Date/Time Associated Diagnosis Comments PAIN MANAGEMENT PROCEDURE TIME Routine 04/19/2024 3:13 PM NARROW GAUGE ENGINEER Disorder of sacrum from Last 3 Months Results * PAIN MANAGEMENT PROCEDURE TIME (04/19/2024 3:13 PM NARROW GAUGE ENGINEER) Anatomical Region Laterality Modality X-Ray Angiograph y Narrative 04/19/2024 5:11 PM NARROW GAUGE ENGINEER Oni Womack MD 04/19/2024 5:13 PM Transforaminal Right L5 ,S1 Selective Nerve Root Injection Sylvia Sullivan [id number] 04/19/2024 Allergies Allergen Reactions Pcn [Penicillins] Vantin [...] a routine sterile fashion using chloroprep. Responsible carrier driver not needed as the patient is [...] to home. Patient survey given. Procedure codes: 39051,57566 Pre VAS 8/10 Post VAS 8/10 Oni Womack MD Oni Womack MD DIAGNOSTIC IMAGING O RDERABLES from Last 3 Months Advance Directives * Full Code (Latest Code Status on File) Date Activated Date Inactivated Comments 08/12/2019 11:04 AM 08/14/2019 2:07 PM Care Teams Warp Dyeing Vat Tender Relationship Specialty Start Date End Date Tay Gastelum MD [address] [place] [phone] PCP - General Family Medicine 04/06/18 [place] [address] [place] [address] [place] [address] Orthopedic Surgery 10/03/14 [place] [address] [address] Physical Medicine and Rehabilitation 02/23/24
[2024-07-08 19:17] LABS: Hematocrit 34.8 % (37.0-47.0); Hemoglobin 10.6 g/dL (12.0-15.0); Mean Corpuscular HGB Conc 30.5 g/dl (32-36); Mean Corpuscular Hemoglobin 30.4 pg (26-34); Mean Corpuscular Volume 99.7 fl (80-100); Mean Platelet Volume 10.4 fl (7.4-10.4); Platelet Count Result 329 k/mm3 (150-375); Red Blood Count 3.49 M/mm3 (4.2-5.4); Red Cell Distribution Width 12.9 % (11.5-14.5); White Blood Count 8.4 K/mm3 (4.5-10.0)
[2024-07-08 20:37] LABS: Iron 120 ug/dL (37-170)
[2024-07-08 20:46] LABS: Percent Iron Saturation 44 % (20-50)
== END 2024-07-08 10:49 | disposition home or self-care (01) ==
LOC: ANHGOSHLAB 10:50
PROVIDERS: PCP Family Medicine; Visit Provider Nurse Practitioner Family
DX: D64.9 Anemia, unspecified (principal)
CPT/HCPCS: 36415; 82607; 82728; 83540; 83550; 85027

== ENCOUNTER 2024-11-20 10:54 | Outpatient (CLI) | payer MEDICARE, BC, OTHER, SELFPAY ==
--- NOTE | ~2024-11-20 | DEXA_ITS ---
Bone Density Report Name: LIBORIO NUNEZ Age: 84 Sex: Female Ethnicity: White Date of : 1940 Indication: postmenopausal; screening for osteoporosis; height loss; Referring Provider: SONU MUÑIZ Study: Bone densitometry was performed. Exam Date: November 20, 2024 Accession number: [id number] Bone Density: Region BMD T-score Z-score Classification AP Spine(L1-L4) 1.117 0.6 3.5 Normal Femoral Neck (Left) 0.819 -0.3 2.3 Normal Total Hip (Left) 0.895 -0.4 2.0 Normal Femoral Neck (Right) 0.702 -1.3 1.2 Osteopenia Total Hip (Right) 0.885 -0.5 1.9 Normal Total Hip Mean 0.890 -0.5 2.0 Normal World Health Organization criteria for BMD impression classify patients as: Normal (T-score at or above -1.0), Osteopenia (T-score between -1.0 and -2.5), or Osteoporosis (T-score at or below -2.5). 10-year Fracture Risk(1): Major Osteoporotic Fracture 13% Hip Fracture 3.1% Reported Risk Factors: [place] (), Neck BMD=0.702, BMI=28.3 (1) FRAX(R) Version 3.08. Fracture probability calculated for an untreated patient. Fracture probability may be lower if the patient has received treatment. Previous Exams: Region Exam Age BMD T-score BMD Change BMD Change Date g/cm2 vs Baseline vs Previous AP Spine (L1-L4) 11/20/2024 84 1.117 0.6 0.003 (0.3%) 0.003 (0.3%) 09/11/2018 77 1.114 0.6 Total Hip(Left) 11/20/2024 84 0.895 -0.4 -0.060 (-6.3%) -0.048 (-5.1%) 05/07/2021 80 0.944 0.0 -0.011 (-1.2%) -0.011 (-1.2%) 09/11/2018 77 0.955 0.1 Total Hip(Right) 11/20/2024 84 0.885 -0.5 0.008 (0.9%) 0.052 (6.3%)* 05/07/2021 80 0.833 -0.9 -0.044 (-5.0%) -0.044 (-5.0%) 09/11/2018 77 0.876 -0.5 *Denotes significance at 95% confidence level, LSC for AP Spine = 0.022 g/cm2, LSC for Total Hip = 0.027 g/cm2 Clinical Information Provided by Patient: Has used the following medications: Vitamin D Patient maximum height was 68 Menopause Age: 44 Onset of menses at age 10 Number of children 3 Impression: The patient has low bone mass, based on the Right Femoral Neck T-score. The patient has an estimated ten-year risk of hip fracture of 3.1% and an estimated ten-year risk of major fracture of 13%, based on the WHO FRAX algorithm. The BMD for the Total Hip(Left) decreased, changing by -5.1% since the last DXA exam. Discussion: BONE DENSITY IS LOW AT ONE OR MORE SKELETAL SITES. THE PATIENT'S BMD AND CLINICAL RISK FACTORS CONTRIBUTE TO THIS PATIENT'S INCREASED RISK OF FRACTURE. This patient's lowest T-score is low at one or more skeletal sites. It meets the World Health Organization's (WHO) criteria for ?low bone mass? (T-score between -1.0 and -2.5). The patient's 10-year risk of hip fracture as calculated by FRAX exceeds the threshold where pharmacological therapy is recommended by the National Osteoporosis Foundation (NOF). However, all treatment decisions require clinical judgment and consideration of individual patient factors, including patient preferences, comorbidities, previous drug use, risk factors not captured in the FRAX model (e.g., frailty, falls, vitamin D deficiency, increased bone turnover, interval significant decline in bone density) and possible under or overestimation of fracture risk by FRAX. The patient should follow a healthful lifestyle (good nutrition with adequate calcium and vitamin D, and appropriate weight-bearing exercise). Follow-Up: Consider a repeat BMD and Vertebral Fracture Assessment (VFA) exam in 2 years or sooner if medically necessary, to reassess this patient's status. Reported by: TEOFILO on 11/20/2024 11:32:00 AM. Reviewed, dictated and finalized at location A.
== END 2024-11-20 10:55 | disposition home or self-care (01) ==
LOC: ANHIMG 10:55
PROVIDERS: PCP Nurse Practitioner Family; Visit Provider Nurse Practitioner Family
DX: M85.851 Other specified disorders of bone density and structure, right thigh (principal); Z78.0 Asymptomatic menopausal state
CPT/HCPCS: 77080

== ENCOUNTER 2025-02-28 15:12 | Outpatient (CLI) | payer MEDICARE, BC, OTHER, SELFPAY ==
--- OUTSIDE RECORDS SUMMARY | 2010-04-23 03:00 | XMS_ITS | Continuity of Care Document ---
Author Organization [facility] Address [address] [facility] [address] [place] [phone] Phone Care Team Providers Care Net Programmer Analyst Name Role Phone Meredith Bertrand Unavailable Unavailable Procedures Procedure Date After Cataract Laser Surgery Office/outpatient Visit, Est Office/outpatient Visit, Est Vision Svcs Frames Purchases TF Plastic Sphcyl [place] To +/-4d .12-2d Progressive Lens Per Lens Anti-reflective Coating Frames Deluxe Progressive Lens, Polycarb Anti-reflective Coating Post-op Follow-up Visit Post-op Follow-up Visit Post-op Follow-up Visit Remove Cataract, Insert Lens Eye Exam Established Pt IOLMaster-Professional Office/outpatient Visit, Est Office/outpatient Visit, Est Optic Nerve Head Eval Visual Functional Status Assessed TF Plastic Sphcyl [place] To +/-4d .12-2d Oct- Vision Svcs Frames Purchases Progressive Lens, Plastic Anti-reflective Coating Frames Deluxe Post-op Follow-up Visit Post-op Follow-up Visit Post-op Follow-up Visit Post-op Follow-up Visit Post-op Follow-up Visit Remove Cataract, Insert Lens PreSurg Dilated Fundus Eval Performed Se PreSurg Measurements/IOL Calc Performed And Docum Office/outpatient Visit, Est Visual Functional Status Assessed IOLMaster Fundus Photography W/ Report Optic Nerve Head Eval Office/outpatient Visit, Est Eye Exam Established Pt Refraction Advance Directives Directive Yes / No Effective Date File Name No Information Encounters Encounter Description Practice Location Reason(s) For Visit Diagnoses Date Provider Providers Copied on Encounter [facility], [address] [place] [address] [address], [place], [place], [id number], tel:[phone] [facility] No Information 201 0 Elza Juann. [address] [facility] , [address], [place], [place], [facility], . tel:[phone] Office/outpat ient Visit, [facility], [id number] [place] [address] [address], [place], [place], [address], tel:[phone] [facility] No Information 0 Elza Harper. [address] [facility] , [address], [place], [place], [facility], [place]. tel:[phone] Office/outpat ient Visit, [facility], [address] [place] [address] [address], [place], [place], [address], [place] tel:[phone] [facility] No Information 5-200 9 Elza Solis [address] [facility] , [address], [place], [place], [facility], . tel:[phone] [facility], [address] [place] [address] [address], [place], [place], [address], [place] tel:[phone] [facility] No Information 9 [facility] . [address], [address], [place], [place], [address], [place]. tel:[phone] Referring Provider: Meredith Braswell, [address], [place], [place], [facility]. tel:[phone] [facility], [address], [place], [place], [address], [place] tel:[phone] [facility] No Information 9 [facility] . [address], [address], [place], [place], [address], [place]. tel:[phone] [facility], [address], [place], [place], [address], [place] tel:[phone] [facility] No Information 9 Elza Harper. [address] , [address], [place], [facility], [place]. tel:[phone] [facility], [address], [place], [place], [address], [place] tel:[phone] [facility] No Information 9 Elza Solis [address] , [address], [place], [facility], [place]. tel:[phone] [facility], [address], [place], [place], [address], [place] tel:[phone] [facility] No Information 9 Elza Solis [address] , [address], [place], [facility], [place]. tel:[phone] [facility], [address], [place], [place], [address], [place] tel:[phone] [facility] No Information Messi-0 7-200 9 Elza Harper. [address] , [address], [place], [facility], [place]. tel:[phone] [facility], [address], [place], [place], [address], [place] tel:[phone] [facility] No Information Dec-3 0-200 8 Elaz Solis [address] , [address], [place], [facility], [place]. tel:[phone] Referring Provider: Meredith Braswell, [address], [place], [place], [facility]. tel:[phone] Office/outpat ient Visit, [facility], [address] [place] [address] [address], [place], [place], [address], [place] tel:[phone] [facility] No Information Bertrand-0 3-200 8 Elza Harper. [address] [facility] , [address], [place], [facility], [place]. tel:[phone] Office/outpat ient Visit, [facility], [address] [place] [address] [address], [place], [place], [address], [place] tel:[phone] [facility] No Information Dec-0 4-200 7 Elza Solis [address] , [address], [place], [facility], [place]. tel:[phone] [facility], [address] [place] [address] [address], [place], [place], [address], [place] tel:[phone] [facility] No Information Oct-1 5-200 7 [facility] . [address], [address], [place], [place], [address], [place]. tel:[phone] Referring Provider: Meredith Braswell, [address], [place], [facility]. tel:[phone] [facility], [address], [place], [place], [address], [place] tel:[phone] [facility] No Information Oct-0 5-200 7 Bertrand Meredith. [address], [address], [place], [facility], [place]. tel:[phone] [facility], [address] [place] [address] [address], [place], [place], [address], [place] tel:[phone] [facility] No Information Sep-1 4-200 7 Bertrand Meredith. [address] , [address], [place], [facility], [place]. tel:[phone] [facility], [address], [place], [place], [address], [place] tel:[phone] [facility] No Information Sep-1 1-200 7 Bertrand Meredith. [address] , [address], [place], [facility], [place]. tel:[phone] [facility], [address] [place] [address] [address], [place], [place], [address], [place] tel:[phone] [facility] No Information Sep-0 7-200 7 Bertarnd Meredith. [address] , [address], [place], [facility], [place]. tel:[phone] [facility], [address] [place] [address] [address], [place], [place], [address], [place] tel:[phone] [facility] No Information Sep-0 6-200 7 Bertrand Meredith. [address] , [address], [place], [facility], [place]. tel:[phone] [facility], [address], [place], [place], [address], [place] tel:[phone] [facility] No Information 7 Elza Solis [address] [facility] , [address], [place], [facility], [place]. tel:[phone] Office/outpat ient Visit, [facility], [address], [place], [place], [address], [place] tel:[phone] [facility] No Information 7 Elza Solis [address] [facility] , [address], [place], [facility], [place]. tel:[phone] Referring Provider: Meredith Braswell, [address] [facility] [address], [place], [facility]. tel:[phone] Office/outpat ient Visit, [facility], [address], [place], [place], [address], [place] tel:[phone] [facility] No Information 7 Holly Yoder. [address] [facility], [address], [place], [place], [address], [place]. tel:[phone] [facility], [address], [place], [place], [address], [place] tel:[phone] [facility] No Information 7 Elza Solis [address] [facility] , [address], [place], [facility], [place]. tel:[phone] Family History Family Member Type Diagnosis Age At Onset No Information Payers Payer name Insurance type Covered democrat ID Authoriza tion(s) Medicare [facility] [id number] [id number] Social History Type Description Quantity Date Captured Comments Sex Female Smoking Status No Information Chief Complaint And Reason For Visit No Information Reason For Referral Reason For Referral No Information History Of Present Illness Encounter Date Complaint History Of Prese nt Illness No Information Functional Status Date Functional Assessmen t No Information Instructions Date Instruction Additional Infor mation No Information Assessments Type Assessment Date No Information Patient Care Teams Name Effective Dates (start - stop) Status Members No Information
--- NOTE | ~2025-02-28 | MM_ITS ---
EXAMINATION: MM screening kamryn BI w guillermo HISTORY: Screening TECHNIQUE: Craniocaudal and mediolateral oblique 3-D tomosynthesis images were obtained and synthetic 2-D images were generated. CAD analysis was submitted and interpreted. COMPARISON: Comparison to multiple prior studies sequentially, with oldest reviewed study dated , 02/05/2019 BREAST PARENCHYMAL COMPOSITION: The breasts are almost entirely fatty. FINDINGS: There is no evidence of suspicious mass, calcification, or architectural distortion to suggest malignancy in either breast. IMPRESSION: 1. No mammographic evidence of malignancy. 2. Recommend routine screening mammography in one year. BI-RADS Category 1: Negative Reviewed, dictated and finalized at location B.
--- OUTSIDE RECORDS SUMMARY | 2025-02-28 15:49 | XMS_ITS | Clinical Summary ---
Author Organization [facility] Address [address] [place] [address] Care Team Providers Care Electroencephalogram Technologist Name Role Phone Porfirio Tai MD Unavailable [phone] Tay Gastelum MD Primary Care Provider Oni Womack MD Unavailable [phone] Source Comments [facility],non-owned Affiliates and Associated Physician Practices is amultiple site organization consisting of ambulatory clinics and hospital sitesin [place], [place], [place] and [place]. This disclosure is being madepursuant to the Care Everywhere program and may not contain all information available regarding this patient. Last updated 18.[facility] Allergies Active Allergy Reactions Criticality Noted Date Comments Levofloxacin Dizziness 08/16/2024 Penicillins 10/03/2014 Cefpodoxime 10/03/2014 Medications * Be aware that medications may not be up to date on this document. Alwaysverify current medications with the patient. pantoprazole EC (PROTONIX) 40 MG tablet Take 1 (one) tablet by mouth 2 times daily 3 5 Active rosuvastatin (CRESTOR) 10 MG tablet Take 1 (one) tablet by mouth at bedtime 1 8 Active vitamin D3 (D3-1000) (25 MCG) 1000 UNIT capsule Take 1 (one) capsule by mouth once daily Active Other Stool softener--drug unknown, 2 times per day oral. Active albuterol HFA (PROVENTIL;VENT MANE;PROAIR) 108 (90 Base) MCG/ACT inhaler INHALE 1 PUFF BY MOUTH EVERY 4 HOURS NEEDED FOR SHORTNESS OF BREATH OR WHEEZING 1 Active metoprolol succinate XL 24hr (Toprol XL) 50 MG tablet Take 1 (one) tablet by mouth once daily 2 Active celecoxib (CeleBREX) 200 MG capsuleIndicati ons:Acute pain of right knee Take 1 (one) capsule by mouth 2 times daily 180 capsule 3 3 Active dilTIAZem ER 24hr (Tiazac) 120 MG capsule Take 1 (one) capsule by mouth once daily Active cyanocobalamin (Vitamin B-12) 1000 MCG tablet Take 1 (one) tablet by mouth once daily Active Active Problems Problem Noted Date Diagnosed Date Presence of right artificial knee joint 12/16/19 Primary osteoarthritis of left knee 12/16/2019 Postmenopausal atrophic vaginitis 06/08/2019 Stricture and stenosis of cervix 06/08/2019 Primary osteoarthritis of both knees 07/04/2017 Primary osteoarthritis of right knee 06/08/2015 Encounters Date Type Department Care Team Description 01/13/2025 2:00 PM CDT Office Visit [facility] [address] [phone] Oni Womack MD Spinal stenosis of lumbar region, unspecified whether neurogenic claudication present (Primary Dx); Lumbosacral radiculitis; HNP (herniated nucleus pulposus), lumbar; Lumbar foraminal stenosis; Gait difficulty 01/13/2025 1:22 PM CDT - 01/13/2025 11:59 PM CDT Hospital Encounter [facility] [address] [place] [address] Oni Womack MD Discharge Disposition: Home or Self Care 01/13/2025 1:15 PM CDT - 01/13/2025 1:21 PM CDT Hospital Encounter [facility] [id number] [place] [address] Oni Womack MD Discharge Disposition: Home or Self Care 01/13/2025 Travel 01/06/2025 Telephone [facility] [address] [facility], [address] [place] [phone] Oni Womack MD Appointment 12/28/2024 2:45 PM CDT Office Visit [address] [place] [phone] Oni Womack MD Myofascial pain (Primary Dx); Spinal stenosis of lumbar region, unspecified whether neurogenic claudication present; Gait difficulty; Lumbar facet arthropathy 12/28/2024 Travel from Last 3 Months Family History Medical History Relation Name Comments Diabetes - Type 2 Sister Relation Name Status Comments Sister Social History Tobacco Use Types Packs/Day Years Used Date Smoking Tobacco: Never Smokeless Tobacco: Never Alcohol Use Standard Drinks/Week Comments Yes 0 (1 standard drink = 0.6 oz pur e alcohol) weekly PHQ-2 Answer Date Recorded Patient Health Questionnaire-2 Score 0 12/27/2024 Comments No Sex and Gender Information Value Date Recorded Sex Assigned at Not on file Legal Sex Female 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 Gender Identity Not on file Sexual Orientation Not on file Last Filed Vital Signs Vital Sign Reading Time Taken Comments Blood Pressure 114/60 01/13/2025 2:33 PM CDT Pulse 91 01/13/2025 2:33 PM CDT Temperature 36.7 C (98.1 F) 08/14/2019 7:35 AM CDT Respiratory Rate 16 01/13/2025 2:33 PM CDT Oxygen Saturation 93% 01/13/2025 2:33 PM CDT Inhaled Oxygen Concentration - - Weight 85.3 kg (188 lb) 01/13/2025 1:14 PM CDT Height 165.1 cm (5' 5) 01/13/2025 1:14 PM CDT Body Mass Index 31.28 01/13/2025 1:14 PM CDT Plan of Treatment Upcoming Encounters Date Type Department Care Team (Late st Contact Info) Description 04/14/2025 2:15 PM MILLING MACHINE SET UP OPERATOR Office Visit [address] [place] [phone] [place] [id number] [place] [address] [phone] Health Maintenance Due Date Last Done Comments BONE DENSITY TESTING 1940 MEDICARE AWV 12 MONTHS 1940 DTAP/TDAP/TD VACCINES (1 - Tdap) 11/12/1958 PNEUMOCOCCAL VACCINE 50+ (1 of 1 - PCV) 11/12/1989 ZOSTER VACCINE (1 of 2) 11/12/1989 Respiratory Syncytial Virus (RSV) Vaccine Pt: or over 60 yrs (1 - 1-dose 75+ series) 11/12/2014 COVID-19 VACCINE (6 - 2024- season) 2025 04/21/2022, 10/26/2021, 01/28/2021, Additional history exists INFLUENZA VACCINE (#1) 2025 DEPRESSION SCREENING Completed 08/16/2024, 04/19/20 HEPATITIS B VACCINE Aged Out No longe r eligible based on patient's age to complete this topic HIB VACCINE Aged Out No longer eligi ble based on patient's age to complete this topic HPV VACCINE Aged Out No longer eligi ble based on patient's age to complete this topic MENINGOCOCCAL (Group B) VACCINE SHARED DECISION-MAKING Aged Out No longer eligible based on patient's age to complete this topic MENINGOCOCCAL GROUPS A/C/Y/W VACCINE Aged Out No longer eligible based on patient's age to complete this topic Medical Devices Implanted Type Area Intake Man Device Identifier Shelf Expiration Date Model / Serial / Lot Juan Bone [employer]-G Hv 40/20 Implanted:Qty: 1 on 08/12/2019 by Porfirio Tai MD at [facility] Right: Knee [employer] 01/04/2021 [id number] / / [id number] Cmpnt Fem Kn Rt Cr Cmnt Prm Vngrd Intlk Implanted:Qty: 1 on 08/12/2019 by Porfirio Tai MD at [facility] Right: Knee [employer] 04/30/2029 [id number] / / [id number] Cmpnt Ptlr 28mm 1 Pg Wire Ascnt Arcm Kn Implanted:Qty: 1 on 08/12/2019 by Porfirio Tai MD at [facility] Right: Knee [employer] 06/30/2024 [id number] / / [id number] Tray Tib 75mm Kn Cocr I Beam Implanted:Qty: 1 on 08/12/2019 by Porfirio Tai MD at [facility] Right: Knee [employer] 07/06/2029 [id number] / / [id number] Brng [id number] Vngrd Arcm Kn Ant Stab Implanted:Qty: 1 on 08/12/2019 by Porfirio Tai MD at [facility] Right: Knee [employer] 12/14/2022 [id number] / / [id number] Procedures Procedure Name Priority Date/Time Associated Diagnosis Comments PAIN MANAGEMENT PROCEDURE TIME Routine 01/13/2025 5:26 PM CDT Lumbar radiculopathy from Last 3 Months Results * PAIN MANAGEMENT PROCEDURE TIME (01/13/2025 5:26 PM CDT) Anatomical Region Laterality Modality X-Ray Angiograph y Narrative 01/13/2025 5:26 PM CDT Oni Womack MD 01/13/2025 5:29 PM Transforaminal Right L5,Left S1 Selective Nerve Root Injection Sylvia Sullivan [id number] 01/13/2025 Allergies[1] Procedure: Transforaminal Right L5,Left S1 Selective Nerve Root Steroid Injection Under Fluoroscopy [...] the prone position,right L5 pedicle, and transverse process,left S1 foramen were identified under fluoroscopy and marked on the patient's skin. The skin was prepped in a routine sterile fashion using chloroprep. Responsible gas truck driver not needed as the patient [...] spinal needle was slowly inserted towards the left S1 foramen after 1 % lidocaine MPF [...] 4ml Total Dexamethasone :10mg Total Isovue-M 200 :1ml, 9.0 ml wasted The patient tolerated the [...] to home. Patient survey given. Procedure codes: 96324,25434 Pre VAS 8-10/10 Post VAS 7-8/10 Oni Womack MD [1] Allergies Allergen Reactions Levofloxacin Dizziness Pcn [Penicillins] Vantin [Cefpodoxime] us Oni Womack MD DIAGNOSTIC IMAGING ORDERABLE S Final Result from Last 3 [place] [address] [employer] MED[employer]ARE Advance Directives * Full Code (Latest Code Status on File) Date Activated Date Inactivated Comments 08/12/2019 11:04 AM 08/14/2019 2:07 PM Care Teams Electroencephalogram Technologist Relationship Specialty Start Date End Date Tay Gastelum MD [address] [place] [phone] PCP - General Family Medicine 04/06/18 [place] [address] [place] [address] [place] [id number] Orthopedic Surgery 10/03/14 [place] [address] [place] [id number] Physical Medicine and Rehabilitation 02/23/24
== END 2025-02-28 15:13 | disposition home or self-care (01) ==
PROVIDERS: PCP Nurse Practitioner Family; Visit Provider Family Medicine
DX: Z12.31 Encounter for screening mammogram for malignant neoplasm of breast (principal)
CPT/HCPCS: 77063; 77067